=== PATIENT | male | born 1950 | race Caucasian/White ===

== ENCOUNTER → 2017-09-27 10:10 | Outpatient (CLI) | payer MEDICARE, SELFPAY ==
[2017-09-27 12:10] LABS: Absolute Lymphocyte Count 1.41 X10^3/ul (0.83-4.51); Absolute Neutrophil Count 5.5 X10^3/uL (2.0-7.7); Basophil# 0.04 X10^3/uL; Basophil% 0.5 % (0-1); Eosinophil# 0.13 X10^3/uL; Eosinophils% 1.7 % (0-5); Hemoglobin 13.9 g/dl (13.0-16.5); Lymphocyte # 1.41 X10^3/ul (4.0); Lymphocyte % 18.2 % (19-41); Mean Corp Hgb Conc 32.3 g/gl (32-36); Mean Corpuscular Hgb 28.4 pg (27.0-32.0); Mean Corpuscular Volume 87.9 fL (80-94); Mean Platelet Vol. 11.3 fl (6.2-12.0); Monocyte# 0.68 X10^3/uL; Monocyte% 8.8 % (0-10); Neutrophil # 5.45 X10^3/uL (2.7-7.7); Neutrophil % 70.5 % (47-70); Platelet Count 136 K/mm3 (150-450); RBC Distribution Width CV 14.9 % (11.6-14.6); RBC Distribution Width SD 47.6 fl (35.1-43.9); Red Blood Count 4.89 M/mm3 (4.6-6.2); White Blood Count 7.7 K/mm3 (4.4-11.0)
[2017-09-27 12:25] LABS: POSITIVE COUNT NO; POSITIVE DIFFERENTIAL NO; POSITIVE MORPHOLOGY NO
[2017-09-27 12:26] LABS: Erythrocyte Sedimentation Rate 11 mm/hr (0-20)
[2017-09-27 12:28] LABS: Anion Gap 5 (5-15); BUN 21 mg/dL (7-18); BUN/Creat Ratio 17.6 RATIO (10-20); Calcium,Total 8.9 mg/dL (8.5-10.1); Chloride 104 mmol/L (98-107); Cholesterol 230 mg/dL (200); Creatinine, Serum 1.19 mg/dL (0.70-1.30); EST Glomerular Filtration Rate 64 mL/min (>60); Est Glom Filt Rate - Afr Amer 78 mL/min (>60); Glucose 94 mg/dL (74-106); High Density Lipoprotein 82 mg/dL; Sodium Level 138 mmol/L (136-145); Triglycerides 68 mg/dL; Very Low Density Lipoprotein 14 mg/dL (5-40)
== END ==
PROVIDERS: Family Provider Family Medicine; PCP Family Medicine; Visit Provider Family Medicine
DX: I25.10 Atherosclerotic heart disease of native coronary artery without angina pectoris (principal); I10 Essential (primary) hypertension; M35.3 Polymyalgia rheumatica
CPT/HCPCS: 36415; 80048; 80061; 85025; 85652

== ENCOUNTER → 2018-03-21 10:58 | Outpatient (CLI) | payer MEDICARE, SELFPAY ==
[2018-03-21 12:04] LABS: Erythrocyte Sedimentation Rate 27 mm/hr (0-20)
[2018-03-21 12:15] LABS: Absolute Lymphocyte Count 1.06 X10^3/ul (0.83-4.51); Absolute Neutrophil Count 3.4 X10^3/uL (2.0-7.7); Basophil# 0.04 X10^3/uL; Basophil% 0.8 % (0-1); Eosinophil# 0.16 X10^3/uL; Eosinophils% 3.2 % (0-5); Hematocrit 40.9 % (40-54); Hemoglobin 13.9 g/dl (13.0-16.5); Lymphocyte # 1.06 X10^3/ul (4.0); Lymphocyte % 20.9 % (19-41); Mean Corpuscular Hgb 29.5 pg (27.0-32.0); Mean Corpuscular Volume 86.8 fL (80-94); Mean Platelet Vol. 11.9 fl (6.2-12.0); Monocyte# 0.43 X10^3/uL; Monocyte% 8.5 % (0-10); Neutrophil # 3.37 X10^3/uL (2.7-7.7); Neutrophil % 66.4 % (47-70); Platelet Count 149 K/mm3 (150-450); RBC Distribution Width CV 14.3 % (11.6-14.6); RBC Distribution Width SD 45.4 fl (35.1-43.9); Red Blood Count 4.71 M/mm3 (4.6-6.2); White Blood Count 5.1 K/mm3 (4.4-11.0)
[2018-03-21 12:23] LABS: Anion Gap 9 (5-15); BUN 23 mg/dL (7-18); BUN/Creat Ratio 19.2 RATIO (10-20); Calcium,Total 8.9 mg/dL (8.5-10.1); Chloride 109 mmol/L (98-107); Cholesterol 205 mg/dL (200); EST Glomerular Filtration Rate 64 mL/min (>60); Est Glom Filt Rate - Afr Amer 77 mL/min (>60); Glucose 98 mg/dL (74-106); High Density Lipoprotein 52 mg/dL; POSITIVE DIFFERENTIAL NO; PSA,Total - Annual Screen 0.53 ng/mL (0.00-4.00); Potassium 4.5 mmol/L (3.5-5.1); Sodium Level 140 mmol/L (136-145); Triglycerides 56 mg/dL; Very Low Density Lipoprotein 11 mg/dL (5-40)
[2018-03-21 12:24] LABS: POSITIVE COUNT NO; POSITIVE MORPHOLOGY NO
== END ==
PROVIDERS: Family Provider Family Medicine; PCP Family Medicine; Visit Provider Family Medicine
DX: I25.10 Atherosclerotic heart disease of native coronary artery without angina pectoris (principal); I11.0 Hypertensive heart disease with heart failure; I50.9 Heart failure, unspecified; M35.3 Polymyalgia rheumatica; Z12.5 Encounter for screening for malignant neoplasm of prostate
CPT/HCPCS: 36415; 80048; 80061; 84153; 85025; 85652; G0103

== ENCOUNTER → 2018-05-11 16:07 | Outpatient (CLI) | payer MEDICARE, SELFPAY ==
--- NOTE | 2018-05-11 16:08 | ECHOD_ITS ---
Reason For Study: HTN Procedure This was a 2D Doppler, Color Flow transthoracic echocardiogram. Myocardial strain analysis was performed in this exam to aid in the assessment of cardiac function. Exam performed in department. Left Ventricle Mildly dilated left ventricle. Severe segmental systolic dysfunction (see wall motion). The estimated ejection fraction is 30 %. The global longitudinal strain is severely abnormal. The global longitudinal strain = -9.9 % (normal). Anterior [place] : Akinetic. Mid-Inferior: Akinetic. There is moderate to severe global hypokinesis of the left ventricle. Right Ventricle Normal RV size. Normal systolic function. Atria The left atrium is moderately enlarged. The right atrium is mildly enlarged. Mitral Valve Normal mitral valve. Mild (1+) eccentric mitral valve insufficiency. Tricuspid Valve Normal tricuspid valve. Mild (1+) tricuspid valve insufficiency. Mild pulmonary hypertension. Aortic Valve Trisinus/trileaflet aortic valve. Pulmonic Valve Normal pulmonic valve. Great Vessels Mildly dilated aortic root. The pulmonary artery is normal size. Normal inferior vena cava. Pericardium/Pleural No pericardial effusion. MMode/2D Measurements & Calculations LVIDd: 5.9 cm IVSd: 0.96 cm Ao root diam: 4.0 cm LVIDs: 5.3 cm LVPWd: 0.99 cm LA dimension: 4.9 cm RVDd: 3.9 cm FS: 10.0 % LAV(MOD-bp): 79.2 ml LVAd ap4: 50.4 cm2 SV(MOD-sp4): 69.7 ml LAV(MOD-bp) Indexed: 36.9 ml/m2 EDV(MOD-sp4): 204.5 ml LAV(MOD-sp2): 68.9 ml EDV(sp4-el): 217.0 ml LAV(MOD-sp4): 83.7 ml LVAs ap4: 38.8 cm2 ESV(MOD-sp4): 134.7 ml ESV(sp4-el): 141.8 ml EF(MOD-sp4): 34.1 % EF(sp4-el): 34.6 % SV(sp4-el): 75.2 ml LA A4 area: 25.7 cm2 RA A4 area: 21.7 cm2 Time Measurements MV dec time: 0.27 sec Doppler Measurements & Calculations MV E max bandar: 42.7 cm/sec Lat Peak E' Bandar: 4.1 cm/sec Med Peak E' Bandar: 3.1 cm/sec MV A max bandar: 82.0 cm/sec E/E' lat: 10.3 E/E' med: 13.8 MV E/A: 0.52 Ao V2 max: 135.7 cm/sec LV V1 max: 108.6 cm/sec TR max bandar: 270.8 cm/sec Ao max P.4 mmHg LV V1 max P.7 mmHg TR max P.3 mmHg Interpretation Summary Mildly dilated left ventricle. Severe segmental systolic dysfunction (see wall motion). The estimated ejection fraction is 30 %. The left atrium is moderately enlarged. Mild (1+) eccentric mitral valve insufficiency. The global longitudinal strain = -9.9 % (normal). Mild pulmonary hypertension. No thrombus noted Ordering Physician: Mario Sutton Referring Physician: JEAN CLAUDE HERRERA Performed By: Martha Degroot, KALEY, RVT
== END ==
PROVIDERS: Family Provider Family Medicine; PCP Family Medicine; Referring Provider Internal Medicine Cardiovascular Disease; Visit Provider Internal Medicine Cardiovascular Disease
DX: I48.0 Paroxysmal atrial fibrillation (principal)
CPT/HCPCS: 93306

== ENCOUNTER 2018-09-17 16:50 | Inpatient (IN) | payer MEDICARE, SELFPAY ==
[2018-09-17 16:51] VITALS: BP 138/92; PULSE 68; RESP 14; TEMP 36.6; O2SAT 100; BMI 31.0
--- NOTE | 2018-09-17 17:04 | CT_ITS ---
STUDY: CT ABDOMEN AND PELVIS WITHOUT CONTRAST REASON FOR EXAM: Male, 68 years old. Left flank pain. RADIATION DOSAGE (If Supplied By Facility): CTDIvol = ( 17.39 ) mGy, DLP = ( 1147.16 ) mGycm TECHNIQUE: Transaxial images were obtained from the dome of the diaphragm to the symphysis pubis without oral contrast, and without intravenous contrast. Sagittal and coronal images were reconstructed. Individualized dose optimization techniques were used for this CT. COMPARISON: None. FINDINGS: Evaluation of the abdominal viscera is limited in the absence of intravenous contrast. There is atelectasis at the lung bases. The visualized portions of the heart and pericardium are within normal limits. There are no calcified gallstones present. There are simple cysts noted in the liver. The spleen is normal in size. There is fluid and stranding surrounding the head and body of the pancreas. This is consistent with acute pancreatitis. There are no pancreatic parenchymal calcifications noted, consistent with chronic pancreatitis. There is no evidence of pancreatic hemorrhage, necrosis or pseudocyst formation. The adrenal glands are within normal limits. There are no renal or ureteral stones. There is no hydronephrosis. Normal visualized stomach. There is no bowel obstruction or inflammation. The appendix is visualized and appears normal. The aorta is normal in caliber. There is a small amount of free fluid adjacent to the pancreas. There is no free air, fluid collection or lymphadenopathy. There are no destructive osseous lesions. CT/Abdomen/Pelvis W IV Cont ONLY IMPRESSION: Acute on chronic pancreatitis. Small amount of free fluid. No evidence of pancreatic hemorrhage, necrosis or pseudocyst formation. Electronically Signed: Sylvester Burns, at 19:49 EST Tel , Service support ,
[2018-09-17] MEDS: 0.9% Normal Saline 1,000 ML 1000 ML IV (17:22)
[2018-09-17 18:01] LABS: Absolute Lymphocyte Count 1.14 X10^3/ul (0.83-4.51); Absolute Neutrophil Count 4.8 X10^3/uL (2.0-7.7); Basophil# 0.04 X10^3/uL; Basophil% 0.6 % (0-1); Eosinophil# 0.23 X10^3/uL; Eosinophils% 3.3 % (0-5); Hematocrit 42.4 % (40-54); Hemoglobin 13.9 g/dl (13.0-16.5); Lymphocyte # 1.14 X10^3/ul (4.0); Lymphocyte % 16.5 % (19-41); Mean Corp Hgb Conc 32.8 g/gl (32-36); Mean Corpuscular Volume 88.3 fL (80-94); Mean Platelet Vol. 11.6 fl (6.2-12.0); Monocyte# 0.68 X10^3/uL; Monocyte% 9.9 % (0-10); Neutrophil % 69.6 % (47-70); POSITIVE COUNT NO; POSITIVE DIFFERENTIAL NO; POSITIVE MORPHOLOGY NO; Platelet Count 174 K/mm3 (150-450); RBC Distribution Width CV 13.9 % (11.6-14.6); RBC Distribution Width SD 44.7 fl (35.1-43.9); White Blood Count 6.9 K/mm3 (4.4-11.0)
[2018-09-17 18:02] LABS: ALB/GLOB Ratio 0.8 RATIO (0.9-2.4); AST(SGOT) 15 U/L (15-37); Alanine Aminotransfer ALT/SGPT 15 U/L (16-61); Albumin, Serum 3.3 g/dL (3.2-5.0); Alkaline Phosphatase 62 U/L (45-117); Anion Gap 6 (5-15); BUN 21 mg/dL (7-18); BUN/Creat Ratio 18.9 RATIO (10-20); Calcium,Total 8.6 mg/dL (8.5-10.1); Chloride 107 mmol/L (98-107); Creatinine, Serum 1.11 mg/dL (0.70-1.30); EST Glomerular Filtration Rate 70 mL/min (>60); Est Glom Filt Rate - Afr Amer 84 mL/min (>60); Estimated Creatinine Clearance 65.95 ml/min; Globulin 3.9 g/dL (2.2-4.2); Glucose 110 mg/dL (74-106); Lipase 17681 U/L (73-393); Potassium 4.5 mmol/L (3.5-5.1); Protein, Total 7.2 g/dL (6.4-8.2); Sodium Level 140 mmol/L (136-145)
[2018-09-17] MEDS: Ondansetron 4 MG/2 ML Vial IV (18:02)
[2018-09-17] MEDS: Morphine 4 MG/ML Syringe IV ×2 (18:02→22:33)
[2018-09-17 18:44] LABS: Bacteria 0 SEEN /hpf (None Seen); Mucous, Urine 0 SEEN /hpf (<or=2+); Red Blood Cells-Urine 0 SEEN /hpf (0-5); White Blood Cells 0 SEEN /hpf (0-5)
[2018-09-17 19:03] LABS: Color, Urine Yellow (Yellow); Glucose, Dipstick Normal (Normal); Ketone-Dipstick Negative (Negative); Leukocyte Esterase-Dipstick Negative /ul (Negative); Nitrite-Dipstick Negative (Negative); Occult Blood-Urine Negative /ul (Negative); Protein-Dipstick Negative (Negative); Urine Bilirubin Dipstick Negative (Negative); Urine Clarity Clear (Clear); Urine Urobilinogen Normal (Normal); Urine pH 6.5 (5.0 - 8.0)
[2018-09-17 19:12] LABS: Squamous Epithelial Cells - UA 0-5 SEEN /hpf (0-5)
[2018-09-17 19:18] VITALS: BP 127/94; PULSE 76; RESP 18; O2SAT 95
--- NOTE | 2018-09-17 20:29 | HP.PCM_ITS ---
Problem List (1) Acute on chronic pancreatitis Status: Chronic (2) Paroxysmal atrial fibrillation Status: Chronic (3) Non-ischemic cardiomyopathy Status: Chronic (4) Cardiomyopathy, dilated Status: Chronic History of Present Illness Date of Admission: 09/17/18 Chief Complaint: abdominal pain The patient is a 68 year old M with a significant history of nonischemic cardiomyopathy (systolic dysfunction and diastolic dysfunction with EF 25%; and stage III diastolic on Echo done on 08/04/2015); TIAx2; hypertension and paroxysmal A. fib who presented to the emergency department because of 1 day history of progressively worsening excruciating generalized abdominal pain that radiated to his bilateral flanks and into his back. His abdominal pain increased with taking a deep breath. Patient received morphine at emergency department that helped with his abdominal pain. He denies any alleviating factor while at home. Patient reported that his symptoms started few hours after eating a sandwich. Associated his symptoms is nausea without vomiting. Patient reports cold-like symptoms of productive cough with white sputum; and nasal congestion. Also, he had a sore throat which has since disappeared. His cold-like symptoms has been going on for 4-5 days. And he has been taking Mucinex. Patient denies any history of alcoholism. At the Emergency department his lipase was 17,681. CT of his abdomen and pelvis was remarkable for radiographic evidence of acute on chronic pancreatitis. 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) Hypertension (Chronic) Medical History: Medical History (Last Reviewed 09/17/18 @ 21:39 by Phuc Serra MD) Cardiomyopathy, dilated (Chronic) I42.0 Chronic systolic (congestive) heart failure (Chronic) I50.22 Nonischemic cardiomyopathy, suspected viral Diagnosed in 2013 Hyperlipidemia (Chronic) E78.5 Hypertension (Chronic) I10 Encounter for long-term current use of high risk medication Z79.899 Allergies amlodipine Adverse Reaction (Severe, Verified 09/17/18 16:55) Swollen fingers atorvastatin [From Lipitor] Adverse Reaction (Severe, Verified 09/17/18 16:55) Myalgias Home Medications: Ambulatory Orders Medication Instructions Recorded spironolactone 25 mg tablet 50 mg PO DAILY tab 10/06/17 carvedilol 12.5 mg tablet 12.5 mg PO BID #180 tab 11/07/17 lisinopril 20 mg tablet 20 mg PO BID #180 tab 02/14/18 Surgical History: Surgical History (Last Reviewed 09/17/18 @ 21:16 by Phuc Serra MD) H/O knee surgery Z98.890 Surgical History: tonsillectomy, - - He has had surgery on both knees. Meniscus tear of right knee and tear of ligaments in the left knee. Tonsillectomy Psychiatric History: No pertinent psych hx Smoking Status: Never smoker - *Family History Maternal Family History: Family History (Last Reviewed 09/17/18 @ 21:16 by Phuc Serra MD) Father CAD (coronary artery disease) Mother CVA (cerebral vascular accident) Other Family history of CVA History Items: Heart Disease - age 76 Paternal Family History: Family History (Last Reviewed 09/17/18 @ 21:16 by Phuc Serra MD) Father CAD (coronary artery disease) Mother CVA (cerebral vascular accident) Other Family history of CVA History Items: Diabetes, Heart Disease - age 84 Review of Systems Constitutional: Denies: Chills, Fever, Weight Change HEENT: Reports: Sinus Congestion. Denies: Head Aches Cardiovascular: Denies: Chest Pain, Palpitations Respiratory: Reports: Cough, Shortness of Breath, Sputum production. Denies: Shortness of breath at rest Gastrointestinal: Reports: Abdominal Pain. Denies: Nausea, Vomiting Genitourinary: Denies: Dysuria Musculoskeletal: Reports: Back Pain. Denies: Joint Pain, Joint Tenderness Skin: Denies: Rash, Wounds Neurological: Denies: Numbness, Tingling, Focal weakness Psychiatric: Denies: Anxiety, Depression, Homicidal Ideations, Suicidal Ideations Hematologic/ Lymphatic: Denies: Easy Bruising, Easy Bleeding VTE Information - Inpt Only VTE Present on Admission: No VTE Mechan Device Prophylaxis: None VTE Pharm Prophylaxis ordered?: Yes - Physical Exam General: Alert, Oriented x3, Cooperative HEENT: Atraumatic, PERRLA, EOMI, Normocephalic Neck: Supple, No JVD, Negative Carotid Bruits Lungs: Clear to auscultation, Normal air movement Cardiovascular: Regular rate, No murmurs Abdomen: Bowel Sounds Present, Soft, Tender Extremities: No edema, Capillary Refill Less than 3 Seconds Skin: No rashes, No breakdown Musculoskeletal: No Tenderness to Palpation of Joints or Extremities Neurological: Neuro grossly intact Psych/Mental Status: Normal Affect, Appropriate Vital Signs Temp Pulse Resp BP Pulse Ox 97.9 F 76 18 127/94 H 95 09/17/18 16:51 09/17/18 19:18 09/17/18 19:18 09/17/18 19:18 09/17/18 19:18 Oxygen Delivery Method Room Air Weight: 101 kg Body Mass Index (BMI) 31.0 Finger Stick Blood Glucose 83 Laboratory Tests Past 24 Hrs 09/17/18 09/17/18 09/17/18 17:21 17:21 18:35 WBC 6.9 RBC 4.80 Hgb 13.9 Hct 42.4 MCV 88.3 MCH 29.0 MCHC 32.8 RDW 13.9 RDW Differential 44.7 H Plt Count 174 MPV 11.6 Immature Gran % (Auto) 0.100 Neut % (Auto) 69.6 Lymph % (Auto) 16.5 L [place] % (Auto) 9.9 Eos % (Auto) 3.3 Baso % (Auto) 0.6 Absolute Neuts (auto) 4.8 Absolute Lymphs (auto) 1.14 Total Counted Not Reportable Sodium 140 Potassium 4.5 Chloride 107 Carbon Dioxide 27.0 Anion Gap 6 BUN 21 H Creatinine 1.11 Estim Creat Clear Calc 65.95 Est GFR (MDRD) Af Amer 84 Est GFR (MDRD) Non-Af 70 BUN/Creatinine Ratio 18.9 Glucose 110 H Calcium 8.6 Total Bilirubin 0.40 AST 15 ALT 15 L Alkaline Phosphatase 62 Total Protein 7.2 Albumin 3.3 Globulin 3.9 Albumin/Globulin Ratio 0.8 L Lipase 49452 H Urine Color Yellow Urine Clarity Clear Urine pH 6.5 Ur Specific [place] 1.010 Urine Protein Negative Urine Glucose (UA) Normal Urine Ketones Negative Urine Occult Blood Negative Urine Nitrite Negative Urine Bilirubin Negative Urine Urobilinogen Normal Ur Leukocyte Esterase Negative Urine RBC 0 SEEN Urine WBC 0 SEEN Ur Squamous Epith Cells 0-5 SEEN Urine Bacteria 0 SEEN Urine Mucus 0 SEEN Assessment/Plan All Active Problems (Last Reviewed 09/17/18 @ 21:29 by Phuc Serra MD) Family history of CVA (Acute) Hemorrhagic stroke (Resolved) Syncope (Resolved) History of intracranial hemorrhage (Resolved) The patient is a 68 year old M with a significant history of nonischemic cardiomyopathy (systolic dysfunction and diastolic dysfunction with EF 25%; and stage III diastolic on Echo done on 08/04/2015); TIAx2;hypertension and paroxysmal A. fib who presented to the emergency department because of 1 day history of excruciating generalized abdominal pain that radiated to his bilateral flanks and into his back; and with nausea without vomiting; and was found to have severely elevated lipase and radiographic findings of acute on chronic pancreatitis. Acute on chronic pancreatitis Patient with abdominal pain that radiate to his back. Lipase of 17,681 CT of abdomen and pelvis was independently reviewed and it showed pancreatic alejandra cifications and inflammation consistent with acute on chronic pancreatitis. At emergency department patient received normal saline 1 L bolus; morphine sulfate and Zofran. We will continue supportive treatment with IV fluids; morphine sulfate and Zofran. Because of history of congestive heart failure will be cautious with fluids. Lactated Ringer's at 100 mL's per hour for 1500 mL ordered. We will keep n.p.o. for now. His liver enzymes are not elevated to suggest gallbladder disease. However, will get an ultrasound of his liver and gallbladder. We will check alcohol level. We will check lipid levels. His calcium level is normal. And patient is not on any class medications that can cause pancreatitis. Consider further testing for autoimmune pancreatitis if indicated. Trend CBC and BMP. Cold-like symptoms Tessalon Perles and Flonase ordered. Chronic systolic and diastolic dysfunction Review of old records show that his echocardiogram on 08/04/2015 showed an EF of 25%; stage III that B dysfunction. Akinetic apex. Mildly dilated right ventricle; mild global right ventricular systolic dysfunction and others. Coreg, Lisinopril and Aldactone continued. Caution with fluid as above. Paroxysmal A. fib Not in A. fib at the time of admission. Not on chronic anticoagulation. Coreg continued Hypertension On admission his blood pressure was not within goal but it is fairly stable. Coreg, Lisinopril and Aldactone continued. Trend blood pressures and adjust blood pressure medication as necessary. DVT prophylaxis with subcutaneous Lovenox ordered. Code Visit OBSV E&M: 22505 Initial observation care L3
--- NOTE | 2018-09-17 20:36 | ED.VISSUMM ---
- ER Visit Summary Date of Service: 09/17/18 Chief Complaint: Pain History of Present Illness: The patient is a 68 M with abdominal pain that started yesterday evening. It is diffuse but primarily involves his left flank. It is severe. Associate with nausea. He never had this before. Physical Examination: Afebrile and vital signs unremarkable. Patient is alert and oriented. No acute distress. Skin appears normal without jaundice or pallor. Heart regular. Lungs clear. Abdomen tender in the left abdomen and left flank regions. No guarding or rebound. Test Results: CBC normal. Glucose 110 and BUN 21. Lipase 17,000. Urinalysis normal. CT showed findings consistent with pancreatitis without complications. Emergency Department Course and Treatment: Patient treated with fluids, morphine, Zofran. He is not a regular alcohol user. No change in his medications. No history of hepatobiliary disease. I am not sure what is causing his pancreatitis. I spoke with the hospitalist for further care. Treatment Plan: As above Disposition: Admission Impression: 1. Pancreatitis This note was generated with [employer] dictation software. It may contain incorrect words, spelling, and punctuation that were not noted in review of the chart prior to signing ED Disposition - Plan for ED Patient: Referrals: Tomás Garces MD [Primary Care Provider] -
[2018-09-17 21:05] VITALS: O2SAT 95
--- NOTE | 2018-09-17 21:42 | US_ITS ---
STUDY: ABDOMINAL ULTRASOUND - RIGHT UPPER QUADRANT REASON FOR VISIT: Male, 68 years old. Pancreatitis. TECHNIQUE: Ultrasound evaluation of the right upper quadrant was performed with real-time and static stiles-scale imaging. TECHNICAL QUALITY: Adequate. COMPARISON: None. FINDINGS: Liver: The liver measures 15.3 cm. There is a heterogeneous echogenicity of the liver. The bile ducts are within normal limits. There is hepatic color flow. The direction of portal flow is hepatopetal. There is a 2.3 cm x 2.7 cm x 3.2 cm cyst in the left lobe of the liver. 2 cysts are seen in the right lobe of the liver. The larger measures 2.5 cm x 2.2 sinus by 2.1 cm. Gallbladder: Normal distended gallbladder. The gallbladder wall is thickened and measures 5 mm. There is a negative sonographic Nevarez's sign. There is no pericholecystic fluid. There are multiple echogenic structures within the gallbladder, consistent with multiple gallstones. Common Bile Duct (C.B.D.): The common bile duct measures 7 mm. Pancreas: Normal size of the head, body and tail of the pancreas. There is increased echogenicity of the pancreas. There is no demonstrated pancreatic mass or cyst. Right Kidney: Normal size of the right kidney. The right kidney measures 12.9 cm x 6.2 cm x 4.5 cm. Normal renal cortex. The right cortex measures 1.6 cm. There is no demonstrated renal mass or cyst. There is no right hydronephrosis. US/Abdomen Limited IMPRESSION: Multiple gallstones. Thickened gallbladder wall. Hepatic cysts. Electronically Signed: Jose Francisco Whitfield MD at 10:48 EST , Service support ,
[2018-09-17 21:43] VITALS: BMI 30.4
[2018-09-17 22:12] VITALS: BP 142/87; PULSE 69; RESP 15; TEMP 36.5; O2SAT 95
[2018-09-17 22:17] LABS: Alcohol, Blood (Medical)-Serum < 3.0 mg/dL
[2018-09-17] MEDS: Lisinopril 20 MG Tablet PO (22:32)
[2018-09-17] MEDS: Carvedilol 12.5 MG Tablet PO (22:32)
[2018-09-17] MEDS: Lactated Ringers 1,000 ML 100 ML IV (22:32)
[2018-09-18] MEDS: Morphine 2 MG/ML Syringe IV ×4 (04:19→18:02)
[2018-09-18 04:20] VITALS: BP 110/70; PULSE 64; RESP 16; TEMP 37; O2SAT 96
[2018-09-18 06:03] LABS: Absolute Lymphocyte Count 1.16 X10^3/ul (0.83-4.51); Absolute Neutrophil Count 5.6 X10^3/uL (2.0-7.7); Basophil# 0.03 X10^3/uL; Basophil% 0.4 % (0-1); Eosinophil# 0.24 X10^3/uL; Eosinophils% 3.1 % (0-5); Hematocrit 41.6 % (40-54); Hemoglobin 13.5 g/dl (13.0-16.5); Lymphocyte # 1.16 X10^3/ul (4.0); Lymphocyte % 15.1 % (19-41); Mean Corp Hgb Conc 32.5 g/gl (32-36); Mean Corpuscular Hgb 28.6 pg (27.0-32.0); Mean Corpuscular Volume 88.1 fL (80-94); Mean Platelet Vol. 11.2 fl (6.2-12.0); Monocyte# 0.67 X10^3/uL; Monocyte% 8.7 % (0-10); Neutrophil # 5.56 X10^3/uL (2.7-7.7); Neutrophil % 72.6 % (47-70); Platelet Count 167 K/mm3 (150-450); RBC Distribution Width CV 14.1 % (11.6-14.6); RBC Distribution Width SD 45.4 fl (35.1-43.9); Red Blood Count 4.72 M/mm3 (4.6-6.2); White Blood Count 7.7 K/mm3 (4.4-11.0)
[2018-09-18 06:25] LABS: Anion Gap 9 (5-15); BUN 20 mg/dL (7-18); BUN/Creat Ratio 17.9 RATIO (10-20); Calcium,Total 8.5 mg/dL (8.5-10.1); Chloride 109 mmol/L (98-107); Cholesterol 145 mg/dL (200); Creatinine, Serum 1.12 mg/dL (0.70-1.30); EST Glomerular Filtration Rate 69 mL/min (>60); Est Glom Filt Rate - Afr Amer 83 mL/min (>60); Estimated Creatinine Clearance 65.36 ml/min; Glucose 104 mg/dL (74-106); High Density Lipoprotein 45 mg/dL; Potassium 4.6 mmol/L (3.5-5.1); Sodium Level 141 mmol/L (136-145); Triglycerides 51 mg/dL; Very Low Density Lipoprotein 10 mg/dL (5-40)
[2018-09-18 06:26] LABS: POSITIVE COUNT NO; POSITIVE DIFFERENTIAL NO; POSITIVE MORPHOLOGY NO
[2018-09-18 07:33] VITALS: O2SAT 95
[2018-09-18] MEDS: Lactated Ringers 1,000 ML 100 ML IV (08:39)
[2018-09-18 08:40] VITALS: BP 136/82; PULSE 65; RESP 16; TEMP 36.8; O2SAT 95
[2018-09-18 08:56] LABS: Lipase 6122 U/L (73-393)
--- NOTE | 2018-09-18 09:45 | NURSING ---
pt transported off the unit via bed for ultrasound by CATHI Valdez at this time
--- NOTE | 2018-09-18 10:44 | PCM.PN.HOSP ---
Patient Problems: Active and Suspected Problems (Last Reviewed 09/18/18 @ 14:07 by Renuka Ng PA-C) Cholelithiasis (Acute) Subjective: Patient seen and examined. He was admitted with a complaint of abdominal pain and was found to have acute pancreatitis. He is currently n.p.o. Pain has improved, though it is still present. He denies any fever, any chills, any nausea or vomiting, or diarrhea. Review of systems otherwise negative. Labs and vitals reviewed. Vitals/I&O's: Vital Signs Temp Pulse Resp BP Pulse Ox 98.6 F 64 16 110/70 95 09/18/18 04:20 09/18/18 04:20 09/18/18 04:20 09/18/18 04:20 09/18/18 07:33 Oxygen Delivery Method Room Air Weight: 217 lb 13.067 oz Body Mass Index (BMI) 30.4 Finger Stick Blood Glucose 83 Intake and Output for Last 24 Hours 09/16/18 09/17/18 09/18/18 23:59 23:59 23:59 Intake Total 1814 / 1814 Output Total 400 / 400 Balance 1414 / 1414 General: Alert, Oriented x3, Cooperative, No apparent distress HEENT: Atraumatic, PERRLA, EOMI, Normocephalic Oral: Moist Mucosa Neck: Supple, No JVD, Negative Carotid Bruits Lungs: Clear to auscultation, Normal air movement, No rhonchi, No wheeze, No rales Cardiovascular: Regular rate, Regular Rhythm, Normal S1, Normal S2, No murmurs Abdomen: Bowel Sounds Present, Soft, - - moderate tenderness in right lower quadrant area. No guarding or rebound tenderness Extremities: No edema, Capillary Refill Less than 3 Seconds Skin: No rashes, No breakdown Musculoskeletal: No Tenderness to Palpation of Joints or Extremities Lymphatic: No Cervical, Supraclavicular, or Inguinal Adenopathy Neurological: Cranial nerves II-XII grossly intact Psych/Mental Status: Normal Affect, Appropriate, Alert and oriented to time, place, person, mood and affect Laboratory Results 09/17/18 17:21: WBC 6.9, RBC 4.80, Hgb 13.9, Hct 42.4, MCV 88.3, MCH 29.0, MCHC 32.8, RDW 13.9, RDW Differential 44.7 H, Plt Count 174, MPV 11.6, Immature Gran % (Auto) 0.100, Neut % (Auto) 69.6, Lymph % (Auto) 16.5 L, [place] % (Auto) 9.9, Eos % (Auto) 3.3, Baso % (Auto) 0.6, Absolute Neuts (auto) 4.8, Absolute Lymphs (auto) 1.14, Total Counted Not Reportable 09/17/18 17:21: Sodium 140, Potassium 4.5, Chloride 107, Carbon Dioxide 27.0, Anion Gap 6, BUN 21 H, Creatinine 1.11, Estim Creat Clear Calc 65.95, Est GFR (MDRD) Af Amer 84, Est GFR (MDRD) Non-Af 70, BUN/Creatinine Ratio 18.9, Glucose 110 H, Calcium 8.6, Total Bilirubin 0.40, AST 15, ALT 15 L, Alkaline Phosphatase 62, Total Protein 7.2, Albumin 3.3, Globulin 3.9, Albumin/Globulin Ratio 0.8 L, Lipase 29187 H 09/17/18 17:21: Ethyl Alcohol < 3.0 09/17/18 18:35: Urine Color Yellow, Urine Clarity Clear, Urine pH 6.5, Ur Specific [place] 1.010, Urine Protein Negative, Urine Glucose (UA) Normal, Urine Ketones Negative, Urine Occult Blood Negative, Urine Nitrite Negative, Urine Bilirubin Negative, Urine Urobilinogen Normal, Ur Leukocyte Esterase Negative, Urine RBC 0 SEEN, Urine WBC 0 SEEN, Ur Squamous Epith Cells 0-5 SEEN, Urine Bacteria 0 SEEN, Urine Mucus 0 SEEN 09/18/18 05:40: Sodium 141, Potassium 4.6, Chloride 109 H, Carbon Dioxide 23.0, Anion Gap 9, BUN 20 H, Creatinine 1.12, Estim Creat Clear Calc 65.36, Est GFR (MDRD) Af Amer 83, Est GFR (MDRD) Non-Af 69, BUN/Creatinine Ratio 17.9, Glucose 104, Calcium 8.5, Triglycerides 51, Cholesterol 145, LDL Cholesterol 90, VLDL Cholesterol 10, HDL Cholesterol 45 09/18/18 05:40: WBC 7.7, RBC 4.72, Hgb 13.5, Hct 41.6, MCV 88.1, MCH 28.6, MCHC 32.5, RDW 14.1, RDW Differential 45.4 H, Plt Count 167, MPV 11.2, Immature Gran % (Auto) 0.100, Neut % (Auto) 72.6 H, Lymph % (Auto) 15.1 L, [place] % (Auto) 8.7, Eos % (Auto) 3.1, Baso % (Auto) 0.4, Absolute Neuts (auto) 5.6, Absolute Lymphs (auto) 1.16, Total Counted Not Reportable 09/18/18 05:40: Lipase 6122 H Diagnostic Data Abdomen/Pelvis CT 09/17/18 17:04 IMPRESSION: Acute on chronic pancreatitis. Small amount of free fluid. No evidence of pancreatic hemorrhage, necrosis or pseudocyst formation. Electronically Signed: Sylvester Burns, at 19:49 EST Tel , Service support , Abdomen Ultrasound 09/17/18 21:42 IMPRESSION: Multiple gallstones. Thickened gallbladder wall. Hepatic cysts. Electronically Signed: Jose Francisco Whitfield MD at 10:48 EST , Service support , Current Medications Acetaminophen (Tylenol) 650 mg PO Q6H PRN PRN PRN Reason: Non-cardiac pain (mod-severe) Benzonatate (Tessalon Perle) 100 mg PO TID PRN PRN PRN Reason: coughing Carvedilol (Coreg) 12.5 mg PO BID [facility] Last Admin: 09/17/18 22:32 Dose: 12.5 mg Enoxaparin Sodium (Lovenox) 40 mg SC DAILY@1000 TAMIKA Fluticasone Propionate (Flonase Nasal [place]) 2 spray NASAL DAILY@2200 [facility] Last Admin: 09/18/18 00:32 Dose: Not Given Lactated Ringer's () 1,000 mls @ 100 mls/hr IV .Q10H [facility] Stop: 09/18/18 13:37 Last Admin: 09/18/18 08:39 Dose: 100 mls/hr Lisinopril (Zestril) 20 mg PO BID [facility] Last Admin: 09/17/18 22:32 Dose: 20 mg Magnesium Hydroxide (Milk Of Magnesia) 30 ml PO DAILY PRN PRN PRN Reason: Constipation Morphine Sulfate () 2 - 4 mg IV Q3H PRN PRN PRN Reason: SEVERE PAIN (6-10/10) Last Admin: 09/17/18 22:33 Dose: 4 mg Morphine Sulfate () 2 - 4 mg IV Q3H PRN PRN PRN Reason: SEVERE PAIN (6-10/10) Last Admin: 09/18/18 08:47 Dose: 2 mg Ondansetron HCl (Zofran) 4 mg IV Q8H PRN PRN PRN Reason: NAUSEA Sodium Chloride () 5 - 15 ml IV UD PRN PRN Reason: SALINE FLUSH Spironolactone (Aldactone) 50 mg PO DAILY TAMIKA Medical Necessity - Tobacco Use Smoking Status: Never smoker Assessment/Plan All Active Problems (Last Reviewed 09/18/18 @ 14:07 by Renuka Ng PA-C) Cholelithiasis (Acute) Family history of CVA (Acute) Hemorrhagic stroke (Resolved) Syncope (Resolved) History of intracranial hemorrhage (Resolved) 1. Acute on chronic gallstone pancreatitis Admitted up with abdominal pain which radiated to his back. Initial lipase was 17,681. CT of the abdomen done showed creatinine calcifications and inflammation consistent with acute on chronic pink otitis. Was started on IV fluids and n.p.o. at time of review. Call of was not elevated and triglycerides were also not elevated. Triglycerides down to 6122 this morning. Gallbladder ultrasound done this morning showed multiple gallstones. Consult general surgery for cholecystectomy. maintain NPO and continue gentle hydration with IVF 2. 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 on coreg, lisinopril and aldactone 3. paroxysmal Afib: on coreg. Not on oral anticoagulation, reason not clear. 4. Hypertension: Controlled. On Coreg, lisinopril and Aldactone. DVT prophylaxis: Lovenox Code Visit Inpatient E&M: 62532 Subs Hosp L3
--- NOTE | 2018-09-18 10:52 | PN_ITS ---
Patient Problems: Active and Suspected Problems (Last Reviewed 09/18/18 @ 14:07 by Renuka Ng PA-C) Cholelithiasis (Acute) Subjective: Patient seen and examined. He was admitted with a complaint of abdominal pain and was found to have acute pancreatitis. He is currently n.p.o. Pain has improved, though it is still present. He denies any fever, any chills, any nausea or vomiting, or diarrhea. Review of systems otherwise negative. Labs and vitals reviewed. Vitals/I&O's: Vital Signs Temp Pulse Resp BP Pulse Ox 98.6 F 64 16 110/70 95 09/18/18 04:20 09/18/18 04:20 09/18/18 04:20 09/18/18 04:20 09/18/18 07:33 Oxygen Delivery Method Room Air Weight: 217 lb 13.067 oz Body Mass Index (BMI) 30.4 Finger Stick Blood Glucose 83 Intake and Output for Last 24 Hours 09/16/18 09/17/18 09/18/18 23:59 23:59 23:59 Intake Total 1814 / 1814 Output Total 400 / 400 Balance 1414 / 1414 General: Alert, Oriented x3, Cooperative, No apparent distress HEENT: Atraumatic, PERRLA, EOMI, Normocephalic Oral: Moist Mucosa Neck: Supple, No JVD, Negative Carotid Bruits Lungs: Clear to auscultation, Normal air movement, No rhonchi, No wheeze, No rales Cardiovascular: Regular rate, Regular Rhythm, Normal S1, Normal S2, No murmurs Abdomen: Bowel Sounds Present, Soft, - - moderate tenderness in right lower quadrant area. No guarding or rebound tenderness Extremities: No edema, Capillary Refill Less than 3 Seconds Skin: No rashes, No breakdown Musculoskeletal: No Tenderness to Palpation of Joints or Extremities Lymphatic: No Cervical, Supraclavicular, or Inguinal Adenopathy Neurological: Cranial nerves II-XII grossly intact Psych/Mental Status: Normal Affect, Appropriate, Alert and oriented to time, place, person, mood and affect Laboratory Results 09/17/18 17:21: WBC 6.9, RBC 4.80, Hgb 13.9, Hct 42.4, MCV 88.3, MCH 29.0, MCHC 32.8, RDW 13.9, RDW Differential 44.7 H, Plt Count 174, MPV 11.6, Immature Gran % (Auto) 0.100, Neut % (Auto) 69.6, Lymph % (Auto) 16.5 L, [place] % (Auto) 9.9, Eos % (Auto) 3.3, Baso % (Auto) 0.6, Absolute Neuts (auto) 4.8, Absolute Lymphs (auto) 1.14, Total Counted Not Reportable 09/17/18 17:21: Sodium 140, Potassium 4.5, Chloride 107, Carbon Dioxide 27.0, Anion Gap 6, BUN 21 H, Creatinine 1.11, Estim Creat Clear Calc 65.95, Est GFR (MDRD) Af Amer 84, Est GFR (MDRD) Non-Af 70, BUN/Creatinine Ratio 18.9, Glucose 110 H, Calcium 8.6, Total Bilirubin 0.40, AST 15, ALT 15 L, Alkaline Phosphatase 62, Total Protein 7.2, Albumin 3.3, Globulin 3.9, Albumin/Globulin Ratio 0.8 L, Lipase 87987 H 09/17/18 17:21: Ethyl Alcohol < 3.0 09/17/18 18:35: Urine Color Yellow, Urine Clarity Clear, Urine pH 6.5, Ur Specific [place] 1.010, Urine Protein Negative, Urine Glucose (UA) Normal, Urine Ketones Negative, Urine Occult Blood Negative, Urine Nitrite Negative, Urine Bilirubin Negative, Urine Urobilinogen Normal, Ur Leukocyte Esterase Negative, Urine RBC 0 SEEN, Urine WBC 0 SEEN, Ur Squamous Epith Cells 0-5 SEEN, Urine Bacteria 0 SEEN, Urine Mucus 0 SEEN 09/18/18 05:40: Sodium 141, Potassium 4.6, Chloride 109 H, Carbon Dioxide 23.0, Anion Gap 9, BUN 20 H, Creatinine 1.12, Estim Creat Clear Calc 65.36, Est GFR (MDRD) Af Amer 83, Est GFR (MDRD) Non-Af 69, BUN/Creatinine Ratio 17.9, Glucose 104, Calcium 8.5, Triglycerides 51, Cholesterol 145, LDL Cholesterol 90, VLDL Cholesterol 10, HDL Cholesterol 45 09/18/18 05:40: WBC 7.7, RBC 4.72, Hgb 13.5, Hct 41.6, MCV 88.1, MCH 28.6, MCHC 32.5, RDW 14.1, RDW Differential 45.4 H, Plt Count 167, MPV 11.2, Immature Gran % (Auto) 0.100, Neut % (Auto) 72.6 H, Lymph % (Auto) 15.1 L, [place] % (Auto) 8.7, Eos % (Auto) 3.1, Baso % (Auto) 0.4, Absolute Neuts (auto) 5.6, Absolute Lymphs (auto) 1.16, Total Counted Not Reportable 09/18/18 05:40: Lipase 6122 H Diagnostic Data Abdomen/Pelvis CT 09/17/18 17:04 IMPRESSION: Acute on chronic pancreatitis. Small amount of free fluid. No evidence of pancreatic hemorrhage, necrosis or pseudocyst formation. Electronically Signed: Sylvester Burns, at 19:49 EST Tel , Service support , Abdomen Ultrasound 09/17/18 21:42 IMPRESSION: Multiple gallstones. Thickened gallbladder wall. Hepatic cysts. Electronically Signed: Jose Francisco Whitfield MD at 10:48 EST , Service support , Current Medications Acetaminophen (Tylenol) 650 mg PO Q6H PRN PRN PRN Reason: Non-cardiac pain (mod-severe) Benzonatate (Tessalon Perle) 100 mg PO TID PRN PRN PRN Reason: coughing Carvedilol (Coreg) 12.5 mg PO BID [facility] Last Admin: 09/17/18 22:32 Dose: 12.5 mg Enoxaparin Sodium (Lovenox) 40 mg SC DAILY@1000 T[facility]A Fluticasone Propionate (Flonase Nasal [place]) 2 spray NASAL DAILY@2200 [facility] Last Admin: 09/18/18 00:32 Dose: Not Given Lactated Ringer's () 1,000 mls @ 100 mls/hr IV .Q10H [facility] Stop: 09/18/18 13:37 Last Admin: 09/18/18 08:39 Dose: 100 mls/hr Lisinopril (Zestril) 20 mg PO BID [facility] Last Admin: 09/17/18 22:32 Dose: 20 mg Magnesium Hydroxide (Milk Of Magnesia) 30 ml PO DAILY PRN PRN PRN Reason: Constipation Morphine Sulfate () 2 - 4 mg IV Q3H PRN PRN PRN Reason: SEVERE PAIN (6-10/10) Last Admin: 09/17/18 22:33 Dose: 4 mg Morphine Sulfate () 2 - 4 mg IV Q3H PRN PRN PRN Reason: SEVERE PAIN (6-10/10) Last Admin: 09/18/18 08:47 Dose: 2 mg Ondansetron HCl (Zofran) 4 mg IV Q8H PRN PRN PRN Reason: NAUSEA Sodium Chloride () 5 - 15 ml IV UD PRN PRN Reason: SALINE FLUSH Spironolactone (Aldactone) 50 mg PO DAILY [facility] Medical Necessity - Tobacco Use Smoking Status: Never smoker Assessment/Plan All Active Problems (Last Reviewed 09/18/18 @ 14:07 by Renuka Ng PA-C) Cholelithiasis (Acute) Family history of CVA (Acute) Hemorrhagic stroke (Resolved) Syncope (Resolved) History of intracranial hemorrhage (Resolved) 1. Acute on chronic gallstone pancreatitis * Admitted up with abdominal pain which radiated to his back. Initial lipase was 17,681. * CT of the abdomen done showed creatinine calcifications and inflammation consistent with acute on chronic pink otitis. * Was started on IV fluids and n.p.o. at time of review. * Call of was not elevated and triglycerides were also not elevated. Triglycerides down to 6122 this morning. * Gallbladder ultrasound done this morning showed multiple gallstones. * Consult general surgery for cholecystectomy. * maintain NPO and continue gentle hydration with IVF * 2. Combined diastolic and systolic heart failure * EF of 25%., with stage III diastolic dysfunction. * on coreg, lisinopril and aldactone * 3. paroxysmal Afib: on coreg. Not on oral anticoagulation, reason not clear. 4. Hypertension: Controlled. On Coreg, lisinopril and Aldactone. DVT prophylaxis: Lovenox Code Visit Inpatient E&M: 69887 [facility] L3
--- NOTE | 2018-09-18 11:35 | CASEMGMT ---
RN MINA Face to Face with patient for initial transition planning/care coordination assessment. RN CM introduced self and role at [facility]. Patient lying in bed, alert and oriented. Patient willing to participate in assessment and is able to answer all questions appropriately. Care providers, pharmacy, and demographics verified. Patient wishes to discharge home, denies need for home health at this time. Patient states he has no further needs or concerns at this time. CM to follow for discharge planning needs that may arise. PCP: Dr. Tomás Garces Specialists: [employer] technician [facility]acy[facility] Insurance: [employer] [facility] Prescription Benefit: Yes Living Will/HPOA: Yes, sister Radha Canales LNOK: sister Living Arrangements: Patient lives with sister in 2 story home with bed and bath on 1st floor. Patient states he is independent at home. Transportation: self/sister DME/HHC: Patient states that he has walker and built in shower bench. Patient denies oxygen, cpap, bipap, or nebulizer at home. Patient denies need for HHC. Has had prior HHC but states was awhile ago and came from [facility]. Has been to the inpatient rehab unit previously. Disposition Plan: Patient to dicharge home with family support and follow-up plans in place. Daniella SONI, RN, CM
[2018-09-18] MEDS: 0.9% NaCl Peripheral Flush Adult/Peds IV (11:47)
[2018-09-18] MEDS: Carvedilol 12.5 MG Tablet PO ×2 (11:47→21:10)
[2018-09-18] MEDS: Lisinopril 20 MG Tablet PO ×2 (11:47→21:10)
[2018-09-18] MEDS: Spironolactone 50 MG Tablet PO (11:48)
[2018-09-18 11:57] LABS: AST(SGOT) 15 U/L (15-37); Alanine Aminotransfer ALT/SGPT 15 U/L (16-61); Albumin, Serum 3.3 g/dL (3.2-5.0); Alkaline Phosphatase 61 U/L (45-117); Bilirubin, Direct 0.15 mg/dL (0.00-0.30); Globulin 3.6 g/dL (2.2-4.2); Protein, Total 6.9 g/dL (6.4-8.2)
--- NOTE | 2018-09-18 12:59 | CON.PCM_ITS ---
Problem List (1) Cholelithiasis Status: Acute (2) Acute on chronic pancreatitis Status: Chronic Reason for Consult Date of Consultation: 09/18/18 Reason for Consultation: Gallstone pancreatitis History of Present Illness: The patient is a 68 year old M who presents with 1 day history of left sided pain which radiated into the right upper quadrant and into his back. Patient states he has had left sided intermittent pain for years but attributed this to his two strokes he had in 2013. Patient stated he had a sandwich yesterday and a half hour after he ate, he had a band-like pain that started in the left side and wrapped around. Patient noted nausea. He states he has never had pain this severe before. Patient had called his nephew and took him to the ED. Patient denies vomiting. He denies change in bowel habits. He notes having two strokes within 3 months of each other in 2013. Patient noted he had left-sided weakness. He notes having some residual numbness currently however he has no debilitating factors from the stroke. Patient denies previous myocardial infarction, blood clots. Patient stated he was on Coumadin after his 1st stroke and then his second stroke it was discontinued due to a hemorrhage. Patient also has a history of CHF and A Fib. He currently sees Dr. Sutton for cardiology. He last was evaluated by Dr. Sutton approximately 3-4 months ago for cardiac clearance for knee replacement surgery. Patient notes he has had a chronic cough. He last had an ECHO on 05/11/18 which demonstrated: Mildly dilated left ventricle. Severe segmental systolic dysfunction (see wall motion). The estimated ejection fraction is 30 %. The left atrium is moderately enlarged. Mild (1+) eccentric mitral valve insufficiency. The global longitudinal strain = -9.9 % (normal). Mild pulmonary hypertension. No thrombus noted Patient notes previous tonsillectomy and multiple knee arthroscopies. He denies chest pain, shortness of breath. 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) Hypertension (Chronic) Medical History: Medical History (Last Reviewed 09/18/18 @ 14:07 by Renuka Ng PA-C) Cardiomyopathy, dilated (Chronic) I42.0 Chronic systolic (congestive) heart failure (Chronic) I50.22 Nonischemic cardiomyopathy, suspected viral Diagnosed in 2013 Hyperlipidemia (Chronic) E78.5 Hypertension (Chronic) I10 Encounter for long-term current use of high risk medication Z79.899 Allergies amlodipine Adverse Reaction (Severe, Verified 09/17/18 16:55) Swollen fingers atorvastatin [From Lipitor] Adverse Reaction (Severe, Verified 09/17/18 16:55) Myalgias Home Medications: Ambulatory Orders Medication Instructions Recorded spironolactone 25 mg tablet 50 mg PO DAILY tab 10/06/17 carvedilol 12.5 mg tablet 12.5 mg PO BID #180 tab 11/07/17 lisinopril 20 mg tablet 20 mg PO BID #180 tab 02/14/18 Surgical History: Surgical History (Last Reviewed 09/18/18 @ 14:07 by Renuka Ng PA-C) H/O knee surgery Z98.890 Surgical History: tonsillectomy, - - He has had surgery on both knees. Meniscus tear of right knee and tear of ligaments in the left knee. Tonsillectomy Psychiatric History: No pertinent psych hx Lives: Alone Smoking Status: Never smoker Alcohol: None Drugs: None - *Family History Maternal Family History: Family History (Last Reviewed 09/18/18 @ 14:08 by Renuka Ng PA-C) Father CAD (coronary artery disease) Mother CVA (cerebral vascular accident) Other Family history of CVA History Items: Heart Disease - age 76 Paternal Family History: Family History (Last Reviewed 09/18/18 @ 14:08 by Renuka Ng PA-C) Father CAD (coronary artery disease) Mother CVA (cerebral vascular accident) Other Family history of CVA History Items: Diabetes, Heart Disease - age 84 Review of Systems Constitutional: Reports: Anorexia, Fatigue. Denies: Weight Change HEENT: Denies: Head Aches, Sinus Congestion, Sinus Drainage Cardiovascular: Denies: Chest Pain, Palpitations Respiratory: Reports: Cough. Denies: Shortness of Breath, Shortness of breath at rest Gastrointestinal: Reports: Abdominal Pain, Nausea. Denies: Vomiting Genitourinary: Denies: Dysuria Musculoskeletal: Denies: Joint Pain, Joint Tenderness Skin: Denies: Rash, Wounds Neurological: Denies: Numbness, Tingling, Focal weakness Psychiatric: Denies: Anxiety, Depression, Homicidal Ideations, Suicidal Ideations Hematologic/ Lymphatic: Denies: Easy Bruising, Easy Bleeding, Hx of blood clot Patient Problems: Active and Suspected Problems (Last Reviewed 09/17/18 @ 21:39 by Phuc Serra MD) Cholelithiasis (Acute) - Physical Exam General: Alert, Oriented x3, Cooperative HEENT: Atraumatic, PERRLA, EOMI, Normocephalic Neck: Supple, No JVD, Negative Carotid Bruits Lungs: Clear to auscultation, Normal air movement Cardiovascular: Regular rate, No murmurs Abdomen: Bowel Sounds Present, Distended - slightly, Tender - RUQ; LUQ, - - Positive Nevarez's sign Extremities: No edema, Capillary Refill Less than 3 Seconds Skin: No rashes, No breakdown Musculoskeletal: No Tenderness to Palpation of Joints or Extremities Neurological: Neuro grossly intact Psych/Mental Status: Normal Affect, Appropriate Vital Signs Temp Pulse Resp BP Pulse Ox 98.2 F 65 16 136/82 H 95 09/18/18 08:40 09/18/18 08:40 09/18/18 08:40 09/18/18 08:40 09/18/18 08:40 Oxygen Delivery Method Room Air Weight: 217 lb 13.067 oz Body Mass Index (BMI) 30.4 Finger Stick Blood Glucose 83 Intake and Output for Last 24 Hours 09/16/18 09/17/18 09/18/18 23:59 23:59 23:59 Intake Total 2193 / 2193 Output Total 600 / 600 Balance 1593 / 1593 Laboratory Tests Past 24 Hrs 09/17/18 09/17/18 09/17/18 17:21 17:21 17:21 WBC 6.9 RBC 4.80 Hgb 13.9 Hct 42.4 MCV 88.3 MCH 29.0 MCHC 32.8 RDW 13.9 RDW Differential 44.7 H Plt Count 174 MPV 11.6 Immature Gran % (Auto) 0.100 Neut % (Auto) 69.6 Lymph % (Auto) 16.5 L [place] % (Auto) 9.9 Eos % (Auto) 3.3 Baso % (Auto) 0.6 Absolute Neuts (auto) 4.8 Absolute Lymphs (auto) 1.14 Total Counted Not Reportable Sodium 140 Potassium 4.5 Chloride 107 Carbon Dioxide 27.0 Anion Gap 6 BUN 21 H Creatinine 1.11 Estim Creat Clear Calc 65.95 Est GFR (MDRD) Af Amer 84 Est GFR (MDRD) Non-Af 70 BUN/Creatinine Ratio 18.9 Glucose 110 H Calcium 8.6 Total Bilirubin 0.40 Direct Bilirubin AST 15 ALT 15 L Alkaline Phosphatase 62 Total Protein 7.2 Albumin 3.3 Globulin 3.9 Albumin/Globulin Ratio 0.8 L Triglycerides Cholesterol LDL Cholesterol VLDL Cholesterol HDL Cholesterol Lipase 25084 H Urine Color Urine Clarity Urine pH Ur Specific [place] Urine Protein Urine Glucose (UA) Urine Ketones Urine Occult Blood Urine Nitrite Urine Bilirubin Urine Urobilinogen Ur Leukocyte Esterase Urine RBC Urine WBC Ur Squamous Epith Cells Urine Bacteria Urine Mucus Ethyl Alcohol < 3.0 09/17/18 09/18/18 09/18/18 18:35 05:40 05:40 WBC 7.7 RBC 4.72 Hgb 13.5 Hct 41.6 MCV 88.1 MCH 28.6 MCHC 32.5 RDW 14.1 RDW Differential 45.4 H Plt Count 167 MPV 11.2 Immature Gran % (Auto) 0.100 Neut % (Auto) 72.6 H Lymph % (Auto) 15.1 L [place] % (Auto) 8.7 Eos % (Auto) 3.1 Baso % (Auto) 0.4 Absolute Neuts (auto) 5.6 Absolute Lymphs (auto) 1.16 Total Counted Not Reportable Sodium 141 Potassium 4.6 Chloride 109 H Carbon Dioxide 23.0 Anion Gap 9 BUN 20 H Creatinine 1.12 Estim Creat Clear Calc 65.36 Est GFR (MDRD) Af Amer 83 Est GFR (MDRD) Non-Af 69 BUN/Creatinine Ratio 17.9 Glucose 104 Calcium 8.5 Total Bilirubin Direct Bilirubin AST ALT Alkaline Phosphatase Total Protein Albumin Globulin Albumin/Globulin Ratio Triglycerides 51 Cholesterol 145 LDL Cholesterol 90 VLDL Cholesterol 10 HDL Cholesterol 45 Lipase Urine Color Yellow Urine Clarity Clear Urine pH 6.5 Ur Specific [place] 1.010 Urine Protein Negative Urine Glucose (UA) Normal Urine Ketones Negative Urine Occult Blood Negative Urine Nitrite Negative Urine Bilirubin Negative Urine Urobilinogen Normal Ur Leukocyte Esterase Negative Urine RBC 0 SEEN Urine WBC 0 SEEN Ur Squamous Epith Cells 0-5 SEEN Urine Bacteria 0 SEEN Urine Mucus 0 SEEN Ethyl Alcohol 09/18/18 09/18/18 05:40 05:40 WBC RBC Hgb Hct MCV MCH MCHC RDW RDW Differential Plt Count MPV Immature Gran % (Auto) Neut % (Auto) Lymph % (Auto) [place] % (Auto) Eos % (Auto) Baso % (Auto) Absolute Neuts (auto) Absolute Lymphs (auto) Total Counted Sodium Potassium Chloride Carbon Dioxide Anion Gap BUN Creatinine Estim Creat Clear Calc Est GFR (MDRD) Af Amer Est GFR (MDRD) Non-Af BUN/Creatinine Ratio Glucose Calcium Total Bilirubin 0.50 Direct Bilirubin 0.15 AST 15 ALT 15 L Alkaline Phosphatase 61 Total Protein 6.9 Albumin 3.3 Globulin 3.6 Albumin/Globulin Ratio Triglycerides Cholesterol LDL Cholesterol VLDL Cholesterol HDL Cholesterol Lipase 6122 H Urine Color Urine Clarity Urine pH Ur Specific [place] Urine Protein Urine Glucose (UA) Urine Ketones Urine Occult Blood Urine Nitrite Urine Bilirubin Urine Urobilinogen Ur Leukocyte Esterase Urine RBC Urine WBC Ur Squamous Epith Cells Urine Bacteria Urine Mucus Ethyl Alcohol Assessment/Plan All Active Problems (Last Reviewed 09/17/18 @ 21:39 by Phuc Serra MD) Cholelithiasis (Acute) Family history of CVA (Acute) Hemorrhagic stroke (Resolved) Syncope (Resolved) History of intracranial hemorrhage (Resolved) I have been consulted on this patient in conjunction with Dr. Mccracken. Impression: Gallstone pancreatitis. Plan: I have discussed this patient with Dr. Mccracken. Dr. Mccracken will plan to perform a laparoscopic cholecystectomy with intraoperative cholangiogram. Procedure details, risks and benefits have been explained to the patient. Patient has had the opportunity to ask and have questions answered. Patient verbally understands and agrees with the plan. Continue NPO. Patient has been cleared per anesthesia with no additional testing needed. Order SCDs. Start antibiotics. Will plan for procedure tomorrow afternoon. Thank you for allowing us to participate in this patient's care. Code Visit Office Visits / Consults: [id number] IP Consult L3
[2018-09-18 15:00] VITALS: BP 139/82; PULSE 73; RESP 18; TEMP 37.3; O2SAT 96
--- NOTE | 2018-09-18 15:10 | CHAPLAIN ---
Type of Pastoral Visit _x__ Initial Visit ___ Follow-up Visit ___ On-call Visit ___ General Patient Visit ___ Spiritual Assessment ___ Family Conference ___ Bereavement ___ Rapid Response ___ Code Blue ___ Other (describe below) Pastoral Care Referral From _x__ Patient ___ Family ___ Nurse ___ Physician ___ Director Of Compensation ___ Religious Activities Director ___ Other (describe below) Sacrament/Intervention _x__ Active listening ___ Anointing ___ Rastafarian ___ Bereavement ___ Communion _x__ Meena exploration ___ ___ Life review _x__ Prayer ___ Reconciliation ___ Sacrament of Sick ___ Supportive presence ___ Wedding ___ Other (describe below) Pastoral Comments patient is in bed surrounded by many people identified as Tuesday morning friends; pt welcomes storeperson and asks for prayer support for his stomach, possible surgery, and heart condition; pt says he is member of a local mormonism; friends are laughing and telling jokes; much laughter in room; pt welcomes future spiritual care support
[2018-09-18 20:49] VITALS: BP 154/92; PULSE 82; RESP 20; TEMP 37.5; O2SAT 97
[2018-09-19] VITALS (13 sets, daily range): BP systolic 118–142; BP diastolic 65–91; PULSE 69–85; RESP 15–20; TEMP 36.2–37.4; O2SAT 93–97; BMI 30.4
--- NOTE | 2018-09-19 | GALL_PTH ---
PATIENT: SHANNAN HERRERA LOC: MS3 U#:[id number] AGE/SX: 68/M ROOM: KS322 RE09/17/[address]: Dr. Juju Chavez MD : [id number] BED: 1 DIS: 09/20/2018 SPEC #: [id number] RECD: 09/20/18 09:21 STATUS: LU REQ #: [id number] SUDHA: 09/19/18 00:[address]: Matt Mccracken DEPT: SURGICAL PATHOLOGY RECD BY: Jeff Gray ENTERED: 09/20/18 09:21 SP TYPE: GALLBLADDE OTHR DR: MD Dr. Phuc Burkett MD Dr. John K Miller, MD Dr. Nana Yaa Koram, MD Tissues: Gallbladder, NOS Procedures: Surgery Specimen Level III Comments: @ Ordering doctor for SUIII edited from to @ otis LEWIS at 09/20/18 1001 @ Submitting doctor edited from to @ by MARIXAOD at 09/20/18 1001 HEADER OPERATION: Laparoscopic cholecystectomy with intraoperative cholangiogram PRE-OP DIAGNOSIS: Gallstone pancreatitis TISSUE SUBMITTED: Gallbladder MICROSCOPIC DIAGNOSIS Gallbladder, cholecystectomy: Cholesterolosis, chronic cholecystitis and cholelithiasis. AM:molly 09/21/18 MICROSCOPIC DESCRIPTION Slides are reviewed. GROSS DESCRIPTION Received is one container labeled with the patient's name and designated gallbladder. The specimen consists of a gallbladder measuring 8 x 3.5 x 2 cm. The external surface is smooth and glistening. Focally, it is granular, hemorrhagic and contains cautery artifact. The lumen of the gallbladder contains yellow-green mucoid bile and three mishra stones ranging in size to 1.5 cm. The mucosa is bile-stained and without any mass lesions. The gallbladder wall averages 0.1 cm in thickness and is free of mass lesions. Python Programmer sections of the gallbladder and the cystic duct are submitted in one cassette. / AM:molly 09/20/18 TC:3 CPT: 16317
[2018-09-19] MEDS: Lactated Ringers 1,000 ML 100 ML IV ×3 (00:13→20:07)
[2018-09-19] MEDS: Morphine 2 MG/ML Syringe IV ×4 (03:56→20:12)
--- NOTE | 2018-09-19 05:00 | EKG12_ITS ---
Test Reason : AM EKG Blood Pressure : / mmHG Vent. Rate : 078 BPM Atrial Rate : 078 BPM P-R Int : 164 ms QRS Dur : 104 ms QT Int : 384 ms P-R-T Axes : 045 -33 063 degrees QTc Int : 437 ms Sinus rhythm with occasional Premature ventricular complexes Left axis deviation Inferior infarct (cited on or before 17-OCT-2015) Abnormal ECG When compared with ECG of 17-OCT-2015 13:22, Premature ventricular complexes are now Present QT has shortened Confirmed by ELIAZAR STEPHENS, MIKKI ([id number]), scientific publications editor DEJON HERRERA ([id number]) on 09/22/2018 9:29:16 AM Referred By: RAMON Confirmed By:MIKKI PEREA MD
[2018-09-19 06:07] LABS: Absolute Lymphocyte Count 0.94 X10^3/ul (0.83-4.51); Absolute Neutrophil Count 7.8 X10^3/uL (2.0-7.7); Basophil# 0.03 X10^3/uL; Basophil% 0.3 % (0-1); Eosinophil# 0.16 X10^3/uL; Eosinophils% 1.6 % (0-5); Hematocrit 36.7 % (40-54); Hemoglobin 12.3 g/dl (13.0-16.5); Lymphocyte # 0.94 X10^3/ul (4.0); Lymphocyte % 9.5 % (19-41); Mean Corp Hgb Conc 33.5 g/gl (32-36); Mean Corpuscular Hgb 29.6 pg (27.0-32.0); Mean Corpuscular Volume 88.2 fL (80-94); Mean Platelet Vol. 11.3 fl (6.2-12.0); Monocyte# 0.89 X10^3/uL; Neutrophil # 7.84 X10^3/uL (2.7-7.7); Neutrophil % 79.2 % (47-70); Platelet Count 137 K/mm3 (150-450); RBC Distribution Width CV 13.8 % (11.6-14.6); RBC Distribution Width SD 43.8 fl (35.1-43.9); Red Blood Count 4.16 M/mm3 (4.6-6.2); White Blood Count 9.9 K/mm3 (4.4-11.0)
[2018-09-19 06:08] LABS: POSITIVE COUNT NO; POSITIVE DIFFERENTIAL NO; POSITIVE MORPHOLOGY NO
[2018-09-19 06:36] LABS: ALB/GLOB Ratio 0.9 RATIO (0.9-2.4); AST(SGOT) 14 U/L (15-37); Alanine Aminotransfer ALT/SGPT 12 U/L (16-61); Albumin, Serum 2.8 g/dL (3.2-5.0); Alkaline Phosphatase 52 U/L (45-117); Anion Gap 10 (5-15); BUN 15 mg/dL (7-18); BUN/Creat Ratio 15.4 RATIO (10-20); Calcium,Total 8.3 mg/dL (8.5-10.1); Chloride 107 mmol/L (98-107); Creatinine, Serum 0.98 mg/dL (0.70-1.30); EST Glomerular Filtration Rate 81 mL/min (>60); Est Glom Filt Rate - Afr Amer 98 mL/min (>60); Globulin 3.2 g/dL (2.2-4.2); Glucose 92 mg/dL (74-106); Potassium 4.2 mmol/L (3.5-5.1); Sodium Level 139 mmol/L (136-145)
--- NOTE | 2018-09-19 07:19 | PN.SURG_ITS ---
Patient Problems: Active and Suspected Problems (Last Reviewed 09/18/18 @ 14:07 by Renuka Ng PA-C) Cholelithiasis (Acute) Subjective: Patient reports pain is better than it was yesterday. No nausea or vomiting - Physical Exam General: Alert, Oriented x3, Cooperative HEENT: Atraumatic, PERRLA, EOMI, Normocephalic Neck: Supple, No JVD, Negative Carotid Bruits Lungs: Clear to auscultation, Normal air movement Cardiovascular: Regular rate Abdomen: Soft, Non-Distended, Tender - Epigastric Skin: No breakdown Musculoskeletal: No Tenderness to Palpation of Joints or Extremities Neurological: Cranial nerves II-XII grossly intact Psych/Mental Status: Normal Affect, Appropriate Vital Signs Temp Pulse Resp BP Pulse Ox 99.2 F H 82 20 H 139/82 H 94 09/19/18 03:51 09/19/18 03:51 09/19/18 03:51 09/19/18 03:51 09/19/18 03:51 Oxygen Delivery Method Room Air Weight: 217 lb 13.067 oz Body Mass Index (BMI) 30.4 Finger Stick Blood Glucose 83 Intake and Output for Last 24 Hours 09/17/18 09/18/18 09/19/18 23:59 23:59 23:59 Intake Total 2702 / 2702 1194 / 1194 Output Total 1075 / 1075 750 / 750 Balance 1627 / 1627 444 / 444 Laboratory Tests Past 24 Hrs 09/18/18 09/18/18 09/19/18 05:40 05:40 05:43 WBC 9.9 RBC 4.16 L Hgb 12.3 L Hct 36.7 L MCV 88.2 MCH 29.6 MCHC 33.5 RDW 13.8 RDW Differential 43.8 Plt Count 137 L MPV 11.3 Immature Gran % (Auto) 0.400 Neut % (Auto) 79.2 H Lymph % (Auto) 9.5 L [place] % (Auto) 9.0 Eos % (Auto) 1.6 Baso % (Auto) 0.3 Absolute Neuts (auto) 7.8 H Absolute Lymphs (auto) 0.94 Total Counted Not Reportable Sodium Potassium Chloride Carbon Dioxide Anion Gap BUN Creatinine Estim Creat Clear Calc Est GFR (MDRD) Af Amer Est GFR (MDRD) Non-Af BUN/Creatinine Ratio Glucose Calcium Total Bilirubin 0.50 Direct Bilirubin 0.15 AST 15 ALT 15 L Alkaline Phosphatase 61 Total Protein 6.9 Albumin 3.3 Globulin 3.6 Albumin/Globulin Ratio Lipase 6122 H 09/19/18 05:43 WBC RBC Hgb Hct MCV MCH MCHC RDW RDW Differential Plt Count MPV Immature Gran % (Auto) Neut % (Auto) Lymph % (Auto) [place] % (Auto) Eos % (Auto) Baso % (Auto) Absolute Neuts (auto) Absolute Lymphs (auto) Total Counted Sodium 139 Potassium 4.2 Chloride 107 Carbon Dioxide 22.0 Anion Gap 10 BUN 15 Creatinine 0.98 Estim Creat Clear Calc 74.70 Est GFR (MDRD) Af Amer 98 Est GFR (MDRD) Non-Af 81 BUN/Creatinine Ratio 15.4 Glucose 92 Calcium 8.3 L Total Bilirubin 0.80 Direct Bilirubin AST 14 L ALT 12 L Alkaline Phosphatase 52 Total Protein 6.0 L Albumin 2.8 L Globulin 3.2 Albumin/Globulin Ratio 0.9 Lipase Medical Necessity - Tobacco Use Smoking Status: Never smoker Assessment/Plan All Active Problems (Last Reviewed 09/18/18 @ 14:07 by Renuka Ng PA-C) Cholelithiasis (Acute) Family history of CVA (Acute) Hemorrhagic stroke (Resolved) Syncope (Resolved) History of intracranial hemorrhage (Resolved) 68-year-old male with gallstone pancreatitis 1. Patient doing well this morning. Continue n.p.o. and antibiotics for possible cholecystitis. Plan for laparoscopic cholecystectomy this afternoon. Matt Mccracken MD Pager: [facility] [address] [place] [address], [address] [place] [address] Office:
[2018-09-19] MEDS: Carvedilol 12.5 MG Tablet PO ×2 (09:42→22:05)
--- NOTE | 2018-09-19 11:48 | PCM.PN.HOSP ---
Patient Problems: Active and Suspected Problems (Last Reviewed 09/18/18 @ 14:07 by Renuka Ng PA-C) Cholelithiasis (Acute) Subjective: Patient seen and examined. He had an uneventful night. Abdominal pain is improved significantly. He denies any fever chills, cough or chest pain, shortness of breath, diarrhea vomiting. Review of systems otherwise negative. Patient was n.p.o. at time of review in preparation for cholecystectomy today. Vitals/I&O's: Vital Signs Temp Pulse Resp BP Pulse Ox 98.6 F 84 18 137/81 H 95 09/19/18 09:15 09/19/18 09:15 09/19/18 09:15 09/19/18 09:15 09/19/18 09:15 Oxygen Delivery Method Room Air Weight: 217 lb 13.067 oz Body Mass Index (BMI) 30.4 Finger Stick Blood Glucose 83 Intake and Output for Last 24 Hours 09/17/18 09/18/18 09/19/18 23:59 23:59 23:59 Intake Total 2702 / 2702 1194 / 1194 Output Total 1075 / 1075 750 / 750 Balance 1627 / 1627 444 / 444 General: Alert, Oriented x3, Cooperative, No apparent distress HEENT: Atraumatic, PERRLA, EOMI, Normocephalic Oral: Moist Mucosa Neck: Supple, No JVD, Negative Carotid Bruits Lungs: Clear to auscultation, Normal air movement, No rhonchi, No wheeze, No rales Cardiovascular: Regular rate, Regular Rhythm, Normal S1, Normal S2, No murmurs Abdomen: Bowel Sounds Present, Soft, nontender no organomegaly Extremities: No edema, Capillary Refill Less than 3 Seconds Skin: No rashes, No breakdown Musculoskeletal: No Tenderness to Palpation of Joints or Extremities Lymphatic: No Cervical, Supraclavicular, or Inguinal Adenopathy Neurological: Cranial nerves II-XII grossly intact Psych/Mental Status: Normal Affect, Appropriate, Alert and oriented to time, place, person, mood and affect Laboratory Results 09/18/18 05:40: Total Bilirubin 0.50, Direct Bilirubin 0.15, AST 15, ALT 15 L, Alkaline Phosphatase 61, Total Protein 6.9, Albumin 3.3, Globulin 3.6 09/19/18 05:43: WBC 9.9, RBC 4.16 L, Hgb 12.3 L, Hct 36.7 L, MCV 88.2, MCH 29.6, MCHC 33.5, RDW 13.8, RDW Differential 43.8, Plt Count 137 L, MPV 11.3, Immature Gran % (Auto) 0.400, Neut % (Auto) 79.2 H, Lymph % (Auto) 9.5 L, [place] % (Auto) 9.0, Eos % (Auto) 1.6, Baso % (Auto) 0.3, Absolute Neuts (auto) 7.8 H, Absolute Lymphs (auto) 0.94, Total Counted Not Reportable 09/19/18 05:43: Sodium 139, Potassium 4.2, Chloride 107, Carbon Dioxide 22.0, Anion Gap 10, BUN 15, Creatinine 0.98, Estim Creat Clear Calc 74.70, Est GFR (MDRD) Af Amer 98, Est GFR (MDRD) Non-Af 81, BUN/Creatinine Ratio 15.4, Glucose 92, Calcium 8.3 L, Total Bilirubin 0.80, AST 14 L, ALT 12 L, Alkaline Phosphatase 52, Total Protein 6.0 L, Albumin 2.8 L, Globulin 3.2, Albumin/Globulin Ratio 0.9 Diagnostic Data Abdomen/Pelvis CT 09/17/18 17:04 IMPRESSION: Acute on chronic pancreatitis. Small amount of free fluid. No evidence of pancreatic hemorrhage, necrosis or pseudocyst formation. Electronically Signed: Sylvester Burns, at 19:49 EST Tel , Service support , Abdomen Ultrasound 09/17/18 21:42 IMPRESSION: Multiple gallstones. Thickened gallbladder wall. Hepatic cysts. Electronically Signed: Jose Francisco Whitfield MD at 10:48 EST , Service support , Current Medications Acetaminophen (Tylenol) 650 mg PO Q6H PRN PRN PRN Reason: Non-cardiac pain (mod-severe) Benzonatate (Tessalon Perle) 100 mg PO TID PRN PRN PRN Reason: coughing Carvedilol (Coreg) 12.5 mg PO BID [facility] Last Admin: 09/19/18 09:42 Dose: 12.5 mg Enoxaparin Sodium (Lovenox) 40 mg SC DAILY@1000 [facility] Last Admin: 09/18/18 12:06 Dose: Not Given Fluticasone Propionate (Flonase Nasal [place]) 2 spray NASAL DAILY@2200 [facility] Last Admin: 09/18/18 21:07 Dose: Not Given Piperacillin Sod/Tazobactam (Sod 3.375 gm/ Sodium Chloride) 50 mls @ 12.5 mls/hr IV Q8 [facility] Last Admin: 09/19/18 06:11 Dose: 12.5 mls/hr Lactated Ringer's () 1,000 mls @ 100 mls/hr IV .Q10H [facility] Last Admin: 09/19/18 09:46 Dose: 100 mls/hr Lisinopril (Zestril) 20 mg PO BID [facility] Last Admin: 09/19/18 09:47 Dose: Not Given Magnesium Hydroxide (Milk Of Magnesia) 30 ml PO DAILY PRN PRN PRN Reason: Constipation Morphine Sulfate () 2 - 4 mg IV Q3H PRN PRN PRN Reason: SEVERE PAIN (6-10/10) Last Admin: 09/17/18 22:33 Dose: 4 mg Morphine Sulfate () 2 - 4 mg IV Q3H PRN PRN PRN Reason: SEVERE PAIN (6-10/10) Last Admin: 09/19/18 09:42 Dose: 2 mg Ondansetron HCl (Zofran) 4 mg IV Q8H PRN PRN PRN Reason: NAUSEA Sodium Chloride () 5 - 15 ml IV UD PRN PRN Reason: SALINE FLUSH Last Admin: 09/18/18 11:47 Dose: 10 ml Spironolactone (Aldactone) 50 mg PO DAILY [facility] Last Admin: 09/19/18 09:47 Dose: Not Given Medical Necessity - Tobacco Use Smoking Status: Never smoker Assessment/Plan All Active Problems (Last Reviewed 09/18/18 @ 14:07 by Renuka Ng PA-C) Cholelithiasis (Acute) Family history of CVA (Acute) Hemorrhagic stroke (Resolved) Syncope (Resolved) History of intracranial hemorrhage (Resolved) 1. Acute on chronic gallstone pancreatitis Stable. Pain is improved. Gallbladder ultrasound showed multiple gallstones in general surgery on board. Currently n.p.o. and is for laparoscopic cholecystectomy today. Continue IV fluids and pain medication. 2. 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 on coreg, lisinopril and aldactone 3. paroxysmal Afib: on coreg. Not on oral anticoagulation, reason not clear. 4. Hypertension: Controlled. On Coreg, lisinopril and Aldactone. DVT prophylaxis: Lovenox Code Visit Inpatient E&M: 68049 Subs Hosp L3
--- NOTE | 2018-09-19 11:55 | NURSING ---
called report to Kathie in AC. informed that pt 1400 dose of zosyn was sent down with him due to surgery time at 1400. pt transported off this unit via bed at this time
--- NOTE | 2018-09-19 15:05 | RAD_ITS ---
CLINICAL HISTORY: Male, 68 years old. PROCEDURE: CHOLANGIOGRAM - CONSENT: SEDATION: FLUOROSCOPY TIME (if supplied): ( ) minutes/seconds Placement of the catheter and the procedure were performed by: Fluoroscopy was provided by , who was present in the room time of the procedure. TECHNIQUE: (All elements of maximal sterile barrier technique followed, including US elements as applicable) FINDINGS: Contrast is seen to opacify portions of the gallbladder, the cystic duct, the intrahepatic biliary radicles, the common hepatic duct and the common bile duct with easy flow into the duodenal sweep. No abnormal and persistent filling defects identified in the biliary tree. The pancreatic duct is not visualized. The entire biliary tree is of normal caliber IMPRESSION: A normal intraoperative cholangiogram Electronically Signed: Ken Centeno MD at 2:09 EST Tel , Service support , RAD/Cholangiogram/ O R,Initial
[2018-09-19] MEDS: Bupiv/Epi 0.25% 30 ML Vial (15:46)
--- NOTE | 2018-09-19 16:01 | OP.PCM_ITS ---
Problem List (1) Gallstone pancreatitis Status: Acute Report of Operation Date of Procedure: 09/19/18 Pre-Operative Diagnosis: Gallstone pancreatitis Post-Operative Diagnosis: Same Surgery/Procedure Performed:: Laparoscopic cholecystectomy with cholangiogram Specimen's removed: Gallbladder and contents Description of Procedure: After obtaining informed consent patient was brought back to the operating room. General anesthesia was induced. The abdomen was prepped and draped in usual sterile fashion. A small midline incision was made superior to the umbilicus and deepened to the level of fascia. The fascia was elevated and incised. Next the peritoneum was elevated and incised in the same fashion. Finger sweep was performed and the Jerome trocar was placed into the abdomen. The balloon was inflated. The abdomen was inflated to 15 mmHg. Next a camera was introduced into the abdomen and the abdomen was inspected. Next under direct visualization three 5-mm ports were placed one subxiphoid and 2 subcostal. Next the gallbladder was elevated and retracted toward the right shoulder. The peritoneum was stripped from the gallbladder. The gallbladder was inflamed and adherent to the omentum. This was bluntly dissected free. The gallbladder was pierced and suctioned of all of his contents to make dissection easier. There was some spillage of bile. The infundibulum was located and retracted laterally. Next the triangle of [place] was dissected and the cystic duct and cystic artery were identified. Cholangiograms were performed. The Jeronimo clamp was used to clamp across the infundibulum and the catheter needle was inserted into the gallbladder. Under fluoroscopy contrast was instilled into the gallbladder and the common duct, cystic duct as well as proximal hepatic ducts were identified. There was good filling of the duodenum. There were no filling defects noted in the common bile duct. The clamp was removed as well as the need le and the infundibulum was grasped once more. Three hemolock clips were placed across the cystic duct. The cystic duct was then divided leaving 2 clips on the stump. The cystic artery was clipped and divided in the same fashion. The hook cautery was then used to take the gallbladder off of the gallbladder bed. Hemostasis was obtained. Gallbladder fossa was irrigated and no active bleeding or bile leakage was noted. Next the camera switched to a 5 mm camera and introduced in the subxiphoid port. An Endopouch bag was placed through the umbilical port and the gallbladder was placed into it. The gallbladder was then removed through the umbilical incision. The camera was then reinserted through the umbilical port. The gallbladder fossa was inspected once more and noted to be hemostatic with no leaking bile. The abdomen was suctioned dry. The 5 mm ports were removed under direct visualization. The umbilical port was then removed and the air was removed from the abdomen. Next using an 0 Vicryl suture the umbilical fascia was closed in a [id number] fashion. The umbilical port site was irrigated local anesthetic was administered to all the incisions. All the incisions were closed with interrupted subcuticular 4-0 Monocryl sutures followed by Steri-Strips and dressings. The patient was awoken and taken to PACU in stable condition. - Admit VTE Documentation VTE Mechan Device Prophylaxis: SCD's
[2018-09-19] MEDS: 0.9% NaCl Peripheral Flush Adult/Peds IV ×2 (18:32→20:11)
[2018-09-19] MEDS: Lisinopril 20 MG Tablet PO (22:05)
[2018-09-19] MEDS: Fluticasone 0.05% 1 SPRAY NASAL.SRY 2 SPRAY NASAL (22:05)
[2018-09-19] MEDS: Docusate Sodium 100 MG Capsule PO (22:05)
[2018-09-20 02:12] VITALS: BP 123/66; PULSE 73; RESP 18; TEMP 37.4; O2SAT 97
[2018-09-20] MEDS: Lactated Ringers 1,000 ML 100 ML IV (05:41)
[2018-09-20 06:46] LABS: Absolute Lymphocyte Count 0.95 X10^3/ul (0.83-4.51); Absolute Neutrophil Count 8.7 X10^3/uL (2.0-7.7); Basophil# 0.03 X10^3/uL; Basophil% 0.3 % (0-1); Eosinophil# 0.23 X10^3/uL; Eosinophils% 2.1 % (0-5); Hematocrit 36.7 % (40-54); Hemoglobin 11.6 g/dl (13.0-16.5); Lymphocyte # 0.95 X10^3/ul (4.0); Lymphocyte % 8.7 % (19-41); Mean Corp Hgb Conc 31.6 g/gl (32-36); Mean Corpuscular Hgb 28.9 pg (27.0-32.0); Mean Corpuscular Volume 91.5 fL (80-94); Mean Platelet Vol. 10.7 fl (6.2-12.0); Monocyte# 0.93 X10^3/uL; Monocyte% 8.5 % (0-10); Neutrophil # 8.74 X10^3/uL (2.7-7.7); Neutrophil % 80.2 % (47-70); POSITIVE COUNT NO; POSITIVE DIFFERENTIAL NO; POSITIVE MORPHOLOGY NO; Platelet Count 121 K/mm3 (150-450); RBC Distribution Width CV 14.2 % (11.6-14.6); RBC Distribution Width SD 47.6 fl (35.1-43.9); Red Blood Count 4.01 M/mm3 (4.6-6.2); White Blood Count 10.9 K/mm3 (4.4-11.0)
[2018-09-20 06:56] LABS: Anion Gap 10 (5-15); BUN 13 mg/dL (7-18); BUN/Creat Ratio 12.7 RATIO (10-20); Calcium,Total 7.8 mg/dL (8.5-10.1); Chloride 108 mmol/L (98-107); Creatinine, Serum 1.02 mg/dL (0.70-1.30); EST Glomerular Filtration Rate 77 mL/min (>60); Est Glom Filt Rate - Afr Amer 93 mL/min (>60); Estimated Creatinine Clearance 71.77 ml/min; Glucose 93 mg/dL (74-106); Potassium 4.2 mmol/L (3.5-5.1); Sodium Level 137 mmol/L (136-145)
--- NOTE | 2018-09-20 07:17 | PN.SURG_ITS ---
Patient Problems: Active and Suspected Problems (Last Reviewed 09/18/18 @ 14:07 by Renuka gN PA-C) Cholelithiasis (Acute) Gallstone pancreatitis (Acute) Subjective: Patient is doing well with no epigastric pain is only pain is at his umbilical incision site. No nausea or vomiting overnight. - Physical Exam General: Alert, Oriented x3 Lungs: Normal air movement Abdomen: Soft, Non-Distended, - - Mild tenderness at the umbilicus. The umbilical incision did have some oozing. No erythema. No epigastric pain. Vital Signs Temp Pulse Resp BP Pulse Ox 99.3 F H 73 18 123/66 H 97 09/20/18 02:12 09/20/18 02:12 09/20/18 02:12 09/20/18 02:12 09/20/18 02:12 Oxygen Flow Rate (L/min) 2 Oxygen Delivery Method Nasal Cannula Weight: 217 lb 13.067 oz Body Mass Index (BMI) 30.4 Finger Stick Blood Glucose 83 Intake and Output for Last 24 Hours 09/18/18 09/19/18 09/20/18 23:59 23:59 23:59 Intake Total 2702 / 2702 3258 / 3258 1340 / 1340 Output Total 1075 / 1075 1050 / 1050 500 / 500 Balance 1627 / 1627 2208 / 2208 840 / 840 Laboratory Tests Past 24 Hrs 09/20/18 09/20/18 06:18 06:18 WBC 10.9 RBC 4.01 L Hgb 11.6 L Hct 36.7 L MCV 91.5 MCH 28.9 MCHC 31.6 L RDW 14.2 RDW Differential 47.6 H Plt Count 121 L MPV 10.7 Immature Gran % (Auto) 0.200 Neut % (Auto) 80.2 H Lymph % (Auto) 8.7 L [place] % (Auto) 8.5 Eos % (Auto) 2.1 Baso % (Auto) 0.3 Absolute Neuts (auto) 8.7 H Absolute Lymphs (auto) 0.95 Total Counted Not Reportable Sodium 137 Potassium 4.2 Chloride 108 H Carbon Dioxide 19.0 L Anion Gap 10 BUN 13 Creatinine 1.02 Estim Creat Clear Calc 71.77 Est GFR (MDRD) Af Amer 93 Est GFR (MDRD) Non-Af 77 BUN/Creatinine Ratio 12.7 Glucose 93 Calcium 7.8 L Medical Necessity - Tobacco Use Smoking Status: Never smoker Assessment/Plan All Active Problems (Last Reviewed 09/18/18 @ 14:07 by Renuka Ng PA-C) Cholelithiasis (Acute) Gallstone pancreatitis (Acute) Family history of CVA (Acute) Hemorrhagic stroke (Resolved) Syncope (Resolved) History of intracranial hemorrhage (Resolved) 68-year-old male status post lap scopic cholecystectomy and gallstone pancreatitis 1. Patient appears to be doing well this morning. He is no longer complaining of epigastric pain. I will start him on a clear liquid diet and advance as tolerated. The patient did have some bloody oozing from his umbilical incision but there was a little bit of bleeding during surgery. There is no erythema or purulent discharge. 2. Once patient is tolerating a diet he may be discharged home and follow-up with me in 2 weeks. 3. I have stopped antibiotics. Matt Mccracken MD Pager: [facility] [address] [place] [address] [address] [place] [address] Office:
[2018-09-20] MEDS: BENZOCAINE/MENTHOL 1 LOZENGE 2 LOZENGE MUCOUS MEM ×2 (07:34→10:03)
[2018-09-20 08:06] VITALS: BP 120/70; PULSE 71; RESP 16; TEMP 37.5; O2SAT 96
[2018-09-20 08:43] VITALS: BP 114/66; PULSE 72; RESP 16; TEMP 36.8; O2SAT 95
[2018-09-20] MEDS: Spironolactone 50 MG Tablet PO (09:44)
[2018-09-20] MEDS: Docusate Sodium 100 MG Capsule PO (09:44)
[2018-09-20] MEDS: Carvedilol 12.5 MG Tablet PO (09:44)
[2018-09-20] MEDS: Lisinopril 20 MG Tablet PO (09:46)
[2018-09-20 11:44] VITALS: BP 111/66; PULSE 72; RESP 16; TEMP 37.1; O2SAT 94
--- NOTE | 2018-09-20 11:50 | PCM.PN.HOSP ---
Patient Problems: Active and Suspected Problems (Last Reviewed 09/18/18 @ 14:07 by Renuka Ng PA-C) Cholelithiasis (Acute) Gallstone pancreatitis (Acute) Subjective: Patient seen and examined. Today's postop day 1 after laparoscopic cholecystectomy with cholangiogram. He has no complaints and pain is well controlled. He denied any fever chills, palpitations or dizziness, diarrhea vomiting. Per general surgery, is to be started on clear liquid diet to advance as tolerated. Labs and vitals reviewed. Vitals/I&O's: Vital Signs Temp Pulse Resp BP Pulse Ox 98.7 F 72 16 111/66 94 09/20/18 11:44 09/20/18 11:44 09/20/18 11:44 09/20/18 11:44 09/20/18 11:44 Oxygen Flow Rate (L/min) 2 Oxygen Delivery Method Room Air Weight: 217 lb 13.067 oz Body Mass Index (BMI) 30.4 Finger Stick Blood Glucose 83 Intake and Output for Last 24 Hours 09/18/18 09/19/18 09/20/18 23:59 23:59 23:59 Intake Total 2702 / 2702 3258 / 3258 2130 / 2130 Output Total 1075 / 1075 1050 / 1050 700 / 700 Balance 1627 / 1627 2208 / 2208 1430 / 1430 General: Alert, Oriented x3, Cooperative, No apparent distress HEENT: Atraumatic, PERRLA, EOMI, Normocephalic Oral: Moist Mucosa Neck: Supple, No JVD, Negative Carotid Bruits Lungs: Clear to auscultation, Normal air movement, No rhonchi, No wheeze, No rales Cardiovascular: Regular rate, Regular Rhythm, Normal S1, Normal S2, No murmurs Abdomen: Bowel Sounds Present, Soft, Non Tender, - - dressing over laparoscopic site is clean and dry. Extremities: No clubbing, No cyanosis, No edema, Capillary Refill Less than 3 Seconds Skin: No rashes, No breakdown Musculoskeletal: No Tenderness to Palpation of Joints or Extremities Lymphatic: No Cervical, Supraclavicular, or Inguinal Adenopathy Neurological: Cranial nerves II-XII grossly intact Psych/Mental Status: Normal Affect, Appropriate, Alert and oriented to time, place, person, mood and affect Laboratory Results 09/20/18 06:18: WBC 10.9, RBC 4.01 L, Hgb 11.6 L, Hct 36.7 L, MCV 91.5, MCH 28.9, MCHC 31.6 L, RDW 14.2, RDW Differential 47.6 H, Plt Count 121 L, MPV 10.7, Immature Gran % (Auto) 0.200, Neut % (Auto) 80.2 H, Lymph % (Auto) 8.7 L, [place] % (Auto) 8.5, Eos % (Auto) 2.1, Baso % (Auto) 0.3, Absolute Neuts (auto) 8.7 H, Absolute Lymphs (auto) 0.95, Total Counted Not Reportable 09/20/18 06:18: Sodium 137, Potassium 4.2, Chloride 108 H, Carbon Dioxide 19.0 L, Anion Gap 10, BUN 13, Creatinine 1.02, Estim Creat Clear Calc 71.77, Est GFR (MDRD) Af Amer 93, Est GFR (MDRD) Non-Af 77, BUN/Creatinine Ratio 12.7, Glucose 93, Calcium 7.8 L Current Medications Acetaminophen (Tylenol) 650 mg PO Q6H PRN PRN PRN Reason: Non-cardiac pain (mod-severe) Benzonatate (Tessalon Perle) 100 mg PO TID PRN PRN PRN Reason: coughing Carvedilol (Coreg) 12.5 mg PO BID [facility] Last Admin: 09/20/18 09:44 Dose: 12.5 mg Docusate Sodium (Colace) 100 mg PO BID [facility] Last Admin: 09/20/18 09:44 Dose: 100 mg Enoxaparin Sodium (Lovenox) 40 mg SC DAILY@1000 [facility] Last Admin: 09/20/18 09:46 Dose: Not Given Fluticasone Propionate (Flonase Nasal [place]) 2 spray NASAL DAILY@2200 [facility] Last Admin: 09/19/18 22:05 Dose: 2 spray Lactated Ringer's () 1,000 mls @ 100 mls/hr IV .Q10H [facility] Last Admin: 09/20/18 05:41 Dose: 100 mls/hr Lisinopril (Zestril) 20 mg PO BID [facility] Last Admin: 09/20/18 09:46 Dose: 20 mg Magnesium Hydroxide (Milk Of Magnesia) 30 ml PO DAILY PRN PRN PRN Reason: Constipation Morphine Sulfate () 2 - 4 mg IV Q3H PRN PRN PRN Reason: SEVERE PAIN (6-10/10) Last Admin: 09/17/18 22:33 Dose: 4 mg Morphine Sulfate () 2 - 4 mg IV Q3H PRN PRN PRN Reason: SEVERE PAIN (6-10/10) Last Admin: 09/19/18 20:12 Dose: 2 mg Ondansetron HCl (Zofran) 4 mg IV Q8H PRN PRN PRN Reason: NAUSEA Sodium Chloride () 5 - 15 ml IV UD PRN PRN Reason: SALINE FLUSH Last Admin: 09/19/18 20:11 Dose: 10 ml Spironolactone (Aldactone) 50 mg PO DAILY [facility] Last Admin: 09/20/18 09:44 Dose: 50 mg Throat Lozenges (Cepacol Sore Throat Lozenge) 2 lozenge MUCOUS MEM Q2H PRN PRN PRN Reason: SORE THROAT Last Admin: 09/20/18 10:03 Dose: 1 lozenge Medical Necessity - Tobacco Use Smoking Status: Never smoker Assessment/Plan All Active Problems (Last Reviewed 09/18/18 @ 14:07 by Renuka Ng PA-C) Cholelithiasis (Acute) Gallstone pancreatitis (Acute) Family history of CVA (Acute) Hemorrhagic stroke (Resolved) Syncope (Resolved) History of intracranial hemorrhage (Resolved) 1. Acute on chronic gallstone pancreatitis s/p laparoscopic cholecystectomy with intraoperative cholangiogram today is POD 1 has no complaitns. pain well controlled to start clear liquids,and advance as tolerated IV antibiotics stopped 2. 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 on coreg, lisinopril and aldactone 3. paroxysmal Afib: on coreg. not anticoagulated though CHADVASC score is ~ 3. To follow up with his head cager on outpatient basis 4. Hypertension: Controlled. On Coreg, lisinopril and Aldactone. DVT prophylaxis: Lovenox Code Visit Inpatient E&M: 91469 Subs Hosp L2
--- NOTE | 2018-09-20 11:55 | PN_ITS ---
Patient Problems: Active and Suspected Problems (Last Reviewed 09/18/18 @ 14:07 by Renuka Ng PA-C) Cholelithiasis (Acute) Gallstone pancreatitis (Acute) Subjective: Patient seen and examined. Today's postop day 1 after laparoscopic cholecystectomy with cholangiogram. He has no complaints and pain is well controlled. He denied any fever chills, palpitations or dizziness, diarrhea vomiting. Per general surgery, is to be started on clear liquid diet to advance as tolerated. Labs and vitals reviewed. Vitals/I&O's: Vital Signs Temp Pulse Resp BP Pulse Ox 98.7 F 72 16 111/66 94 09/20/18 11:44 09/20/18 11:44 09/20/18 11:44 09/20/18 11:44 09/20/18 11:44 Oxygen Flow Rate (L/min) 2 Oxygen Delivery Method Room Air Weight: 217 lb 13.067 oz Body Mass Index (BMI) 30.4 Finger Stick Blood Glucose 83 Intake and Output for Last 24 Hours 09/18/18 09/19/18 09/20/18 23:59 23:59 23:59 Intake Total 2702 / 2702 3258 / 3258 2130 / 2130 Output Total 1075 / 1075 1050 / 1050 700 / 700 Balance 1627 / 1627 2208 / 2208 1430 / 1430 General: Alert, Oriented x3, Cooperative, No apparent distress HEENT: Atraumatic, PERRLA, EOMI, Normocephalic Oral: Moist Mucosa Neck: Supple, No JVD, Negative Carotid Bruits Lungs: Clear to auscultation, Normal air movement, No rhonchi, No wheeze, No rales Cardiovascular: Regular rate, Regular Rhythm, Normal S1, Normal S2, No murmurs Abdomen: Bowel Sounds Present, Soft, Non Tender, - - dressing over laparoscopic site is clean and dry. Extremities: No clubbing, No cyanosis, No edema, Capillary Refill Less than 3 Seconds Skin: No rashes, No breakdown Musculoskeletal: No Tenderness to Palpation of Joints or Extremities Lymphatic: No Cervical, Supraclavicular, or Inguinal Adenopathy Neurological: Cranial nerves II-XII grossly intact Psych/Mental Status: Normal Affect, Appropriate, Alert and oriented to time, place, person, mood and affect Laboratory Results 09/20/18 06:18: WBC 10.9, RBC 4.01 L, Hgb 11.6 L, Hct 36.7 L, MCV 91.5, MCH 28.9, MCHC 31.6 L, RDW 14.2, RDW Differential 47.6 H, Plt Count 121 L, MPV 10.7, Immature Gran % (Auto) 0.200, Neut % (Auto) 80.2 H, Lymph % (Auto) 8.7 L, [place] % (Auto) 8.5, Eos % (Auto) 2.1, Baso % (Auto) 0.3, Absolute Neuts (auto) 8.7 H, Absolute Lymphs (auto) 0.95, Total Counted Not Reportable 09/20/18 06:18: Sodium 137, Potassium 4.2, Chloride 108 H, Carbon Dioxide 19.0 L , Anion Gap 10, BUN 13, Creatinine 1.02, Estim Creat Clear Calc 71.77, Est GFR (MDRD) Af Amer 93, Est GFR (MDRD) Non-Af 77, BUN/Creatinine Ratio 12.7, Glucose 93, Calcium 7.8 L Current Medications Acetaminophen (Tylenol) 650 mg PO Q6H PRN PRN PRN Reason: Non-cardiac pain (mod-severe) Benzonatate (Tessalon Perle) 100 mg PO TID PRN PRN PRN Reason: coughing Carvedilol (Coreg) 12.5 mg PO BID [facility] Last Admin: 09/20/18 09:44 Dose: 12.5 mg Docusate Sodium (Colace) 100 mg PO BID [facility] Last Admin: 09/20/18 09:44 Dose: 100 mg Enoxaparin Sodium (Lovenox) 40 mg SC DAILY@1000 [facility] Last Admin: 09/20/18 09:46 Dose: Not Given Fluticasone Propionate (Flonase Nasal [place]) 2 spray NASAL DAILY@2200 [facility] Last Admin: 09/19/18 22:05 Dose: 2 spray Lactated Ringer's () 1,000 mls @ 100 mls/hr IV .Q10H [facility] Last Admin: 09/20/18 05:41 Dose: 100 mls/hr Lisinopril (Zestril) 20 mg PO BID [facility] Last Admin: 09/20/18 09:46 Dose: 20 mg Magnesium Hydroxide (Milk Of Magnesia) 30 ml PO DAILY PRN PRN PRN Reason: Constipation Morphine Sulfate () 2 - 4 mg IV Q3H PRN PRN PRN Reason: SEVERE PAIN (6-10/10) Last Admin: 09/17/18 22:33 Dose: 4 mg Morphine Sulfate () 2 - 4 mg IV Q3H PRN PRN PRN Reason: SEVERE PAIN (6-10/10) Last Admin: 09/19/18 20:12 Dose: 2 mg Ondansetron HCl (Zofran) 4 mg IV Q8H PRN PRN PRN Reason: NAUSEA Sodium Chloride () 5 - 15 ml IV UD PRN PRN Reason: SALINE FLUSH Last Admin: 09/19/18 20:11 Dose: 10 ml Spironolactone (Aldactone) 50 mg PO DAILY [facility] Last Admin: 09/20/18 09:44 Dose: 50 mg Throat Lozenges (Cepacol Sore Throat Lozenge) 2 lozenge MUCOUS MEM Q2H PRN PRN PRN Reason: SORE THROAT Last Admin: 09/20/18 10:03 Dose: 1 lozenge Medical Necessity - Tobacco Use Smoking Status: Never smoker Assessment/Plan All Active Problems (Last Reviewed 09/18/18 @ 14:07 by Renuka Ng PA-C) Cholelithiasis (Acute) Gallstone pancreatitis (Acute) Family history of CVA (Acute) Hemorrhagic stroke (Resolved) Syncope (Resolved) History of intracranial hemorrhage (Resolved) 1. Acute on chronic gallstone pancreatitis s/p laparoscopic cholecystectomy with intraoperative cholangiogram * today is POD 1 * has no complaitns. * pain well controlled * to start clear liquids,and advance as tolerated * IV antibiotics stopped * 2. Combined diastolic and systolic heart failure * EF of 25%., with stage III diastolic dysfunction. * on coreg, lisinopril and aldactone * 3. paroxysmal Afib: on coreg. not anticoagulated though CHADVASC score is ~ 3. 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 Hypertension: Controlled. On Coreg, lisinopril and Aldactone. DVT prophylaxis: Lovenox Code Visit Inpatient E&M: 10515 Subs Hosp L2
[2018-09-20 12:26] VITALS: BP 124/70; PULSE 70; RESP 16; TEMP 36.9; O2SAT 93
--- NOTE | 2018-09-20 13:29 | DCINST_ITS ---
Discharge Diet: Light diet - advance as tolerated Discharge Activity: Return to Normal Activity, May Not Drive - for 2-3 days or while taking narcotic pain medicataions., - - Do not drive, work heavy equipment or sign legal documents for 24 hours. May shower in (days): 1 - with the bandage in place. Additional Activity Instructions:: Pain medication may cause nausea. You should typically eat light foods as you take your pain medications. Pain medication may also cause constipation. If this is a problem for you, please discuss with your doctor. Call your doctor if your incision/area has: Continuous Slow Oozing, Sudden Increased Bleeding, Increased Pain/ Swelling, Increased Redness, Foul Smelling Discharge, Fever of 101 or Higher Call your doctor if you observe: Fever of 101 or Higher Suture Line Care: Avoid Pulling/Pushing, Avoid Pinching/Bending Additional Dressing/Incision Instructions:: Leave operative bandaids on for 2 days. When you remove dressing, leave Steri-Strips on until your follow-up appointment, or until the Steri-Strips fall off on their own. Allergies/Adverse Reactions: Allergies amlodipine Adverse Reaction (Severe, Verified 09/17/18 16:55) Swollen fingers atorvastatin [From Lipitor] Adverse Reaction (Severe, Verified 09/17/18 16:55) Myalgias Medications to take at Discharge spironolactone 25 mg tablet 50 mg PO DAILY tab 10/06/17 carvedilol 12.5 mg tablet 12.5 mg PO BID #180 tab 11/07/17 lisinopril 20 mg tablet 20 mg PO BID #180 tab 02/14/18 Primary Care Physician: Tomás Garces MD [Primary Care Provider] - Test Results: Test results from this visit will be discussed in further detail at your follow- up appointment, if applicable. Please Follow Up With: Matt Mccracken MD When: Please call to schedule 2 week follow up appointment. [phone]
--- NOTE | 2018-09-20 14:12 | DCINST_ITS ---
- Discharge Diagnoses Current Active Problems: Current Active and Chronic Problems (Last Reviewed 09/18/18 @ 14:07 by Renuka Ng PA-C) Acute on chronic pancreatitis (Chronic) Cholelithiasis (Acute) Gallstone pancreatitis (Acute) You will use the following diet at home:: Other - soft diet, advance as tolerated Your food should be the consistency of: Soft (bite-sized & easy to chew/swallow) - advance as tolerated Your liquids should be the consistency of: Regular/Thin Discharge Activity: Return to Normal Activity, May Not Drive - for 2-3 days or while taking narcotic pain medicataions., - - Do not drive, work heavy equipment or sign legal documents for 24 hours. May shower in (days): 1 - with the bandage in place. Weight Bearing Status: Weight bearing as tolerated Additional Activity Instructions:: Pain medication may cause nausea. You should typically eat light foods as you take your pain medications. Pain medication may also cause constipation. If this is a problem for you, please discuss with your doctor. Call your doctor if your incision/area has: Continuous Slow Oozing, Sudden Increased Bleeding, Increased Pain/ Swelling, Increased Redness, Foul Smelling Discharge, Fever of 101 or Higher Call your doctor if you observe: Fever of 101 or Higher Suture Line Care: Avoid Pulling/Pushing, Avoid Pinching/Bending Additional Dressing/Incision Instructions:: Leave operative bandaids on for 2 days. When you remove dressing, leave Steri-Strips on until your follow-up appointment, or until the Steri-Strips fall off on their own. Instructions: After Gallbladder Surgery, Cholecystectomy, Having Laparoscopic Cholecystectomy, Understanding Pancreatitis Allergies/Adverse Reactions: Allergies amlodipine Adverse Reaction (Severe, Verified 09/17/18 16:55) Swollen fingers atorvastatin [From Lipitor] Adverse Reaction (Severe, Verified 09/17/18 16:55) Myalgias Medications to take at Discharge spironolactone 25 mg tablet 50 mg PO DAILY tab 10/06/17 carvedilol 12.5 mg tablet 12.5 mg PO BID #180 tab 11/07/17 lisinopril 20 mg tablet 20 mg PO BID #180 tab 02/14/18 Oxycodone HCl/Acetaminophen [Percocet 5/325] 1 - 2 tablet PO Q4H PRN PRN 7 Days #30 tablet 02/13/19 The following prescriptions were given: Oxycodone HCl/Acetaminophen [Percocet 5/325] 1 - 2 tablet PO Q4H PRN PRN 7 Days #30 tablet PRN Reason: Pain Primary Care Physician: Tomás Garces MD [Primary Care Provider] - Please follow up with your Primary Care Physician in: one week Test Results: Test results from this visit will be discussed in further detail at your follow- up appointment, if applicable. Please Follow Up With: Matt Mccracken MD When: Please call to schedule 2 week follow up appointment. [phone] Proposed Discharge Date: 09/20/18
--- NOTE | 2018-09-20 14:12 | PCM.DC.SUM ---
Discharge Date and Diagnosis - Problem List Patient Problems: Active and Suspected Problems (Last Reviewed 09/18/18 @ 14:07 by Renuka Ng PA-C) Cholelithiasis (Acute) Gallstone pancreatitis (Acute) Date of Admission: 09/17/18 Date of Discharge: 09/20/18 - Primary Discharge Diagnosis Active and Suspected Problems (Last Reviewed 09/18/18 @ 14:07 by Renuka Ng PA-C) Cholelithiasis (Acute) Gallstone pancreatitis (Acute) - Secondary Discharge Diagnosis Chronic Problems (Last Reviewed 09/18/18 @ 14:07 by Renuka Ng PA-C) Acute on chronic pancreatitis (Chronic) Paroxysmal atrial fibrillation (Chronic) Non-ischemic cardiomyopathy (Chronic) Cardiomyopathy, dilated (Chronic) Chronic systolic (congestive) heart failure (Chronic) Nonischemic cardiomyopathy, suspected viral Diagnosed in 2013 Hyperlipidemia (Chronic) 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 Small amount of free fluid. No evidence of pancreatic hemorrhage, necrosis or pseudocyst formation. Electronically Signed: Sylvester Burns at 19:49 EST Tel , Service support , Abdomen Ultrasound 09/17/18 21:42 IMPRESSION: Multiple gallstones. Thickened gallbladder wall. Hepatic cysts. Electronically Signed: Jose Francisco Whitfield MD at 10:48 EST , Service support , Cholangiogram 09/19/18 15:05 general surgery- Dr Mccracken Operations: [email or web address] Procedures: None Summary of Care Provided: The patient is a 68 year old M with past medical history significant for nonischemic cardiomyopathy and later cardiomyopathy, hypertension, paroxysmal A. fib and TIA. He was admitted with a complaint of progressively worsening generalized abdominal pain which radiated to his flanks and his back of one day duration. Pain was worsened by breathing deeply. In the ED, his lipase was 17,[address] of the abdomen and pelvis were significant for acute on chronic pancreatitis. He was admitted to be managed for acute on chronic pancreatitis. Triglycerides were elevated and calcium was also within normal limits. Right upper quadrant ultrasound done was positive for gallstones and so he was managed for acute cholelithiasis and gallstone induced acute pancreatitis. He was kept n.p.o. and put on IV fluids and IV morphine for pain. General surgery was consulted and patient had laparoscopic cholecystectomy with intraoperative cholangiogram on 09/19/2018. Patient tolerated surgery well and remained stable. He was started on clear liquid diet on 09/20/2018 which he tolerated well and this was advanced as tolerated. Patient was discharged home on 09/20/2018 to follow-up with his PCP and general surgeon. [] Patient seen and examined prior to discharge . Today's postop day 1 after laparoscopic cholecystectomy with cholangiogram. He has no complaints and pain is well controlled. He denied any fever chills, palpitations or dizziness, diarrhea vomiting. Per general surgery, is to be started on clear liquid diet to advance as tolerated. Labs and vitals reviewed. Home medications reviewed and reconciled. o/e Vital Signs Height 5 ft 11 in Weight: 217 lb 13.067 oz Weight in Pounds 217.8 lbs Pulse Ox 93 Temperature 98.5 F Pulse Rate 70 Respiratory Rate 16 Blood Pressure 124/70 Blood Pressure Position Sitting General: Alert, Oriented x3, Cooperative, No apparent distress HEENT: Atraumatic, PERRLA, EOMI, Normocephalic Oral: Moist Mucosa Neck: Supple, No JVD, Negative Carotid Bruits Lungs: Clear to auscultation, Normal air movement, No rhonchi, No wheeze, No rales Cardiovascular: Regular rate, Regular Rhythm, Normal S1, Normal S2, No murmurs Abdomen: Bowel Sounds Present, Soft, Non Tender, - - dressing over laparoscopic site is clean and dry. Extremities: No clubbing, No cyanosis, No edema, Capillary Refill Less than 3 Seconds Skin: No rashes, No breakdown Musculoskeletal: No Tenderness to Palpation of Joints or Extremities Lymphatic: No Cervical, Supraclavicular, or Inguinal Adenopathy Neurological: Cranial nerves II-XII grossly intact Psych/Mental Status: Normal Affect, Appropriate, Alert and oriented to time, place, person, mood and affect Plan as discussed above. Patient Problems: Active and Suspected Problems (Last Reviewed 09/18/18 @ 14:07 by Renuka Ng PA-C) Cholelithiasis (Acute) Gallstone pancreatitis (Acute) - Physical Exam Vital Signs Temp Pulse Resp BP Pulse Ox 98.5 F 70 16 124/70 H 93 09/20/18 12:26 09/20/18 12:26 09/20/18 12:26 09/20/18 12:26 09/20/18 12:26 Oxygen Flow Rate (L/min) 2 Oxygen Delivery Method Room Air Weight: 217 lb 13.067 oz Body Mass Index (BMI) 30.4 Finger Stick Blood Glucose 83 Intake and Output for Last 24 Hours 09/18/18 09/19/18 09/20/18 23:59 23:59 23:59 Intake Total 2702 / 2702 3258 / 3258 2130 / 2130 Output Total 1075 / 1075 1050 / 1050 1050 / 1050 Balance 1627 / 1627 2208 / 2208 1080 / 1080 Laboratory Tests Past 24 Hrs 09/20/18 09/20/18 06:18 06:18 WBC 10.9 RBC 4.01 L Hgb 11.6 L Hct 36.7 L MCV 91.5 MCH 28.9 MCHC 31.6 L RDW 14.2 RDW Differential 47.6 H Plt Count 121 L MPV 10.7 Immature Gran % (Auto) 0.200 Neut % (Auto) 80.2 H Lymph % (Auto) 8.7 L [place] % (Auto) 8.5 Eos % (Auto) 2.1 Baso % (Auto) 0.3 Absolute Neuts (auto) 8.7 H Absolute Lymphs (auto) 0.95 Total Counted Not Reportable Sodium 137 Potassium 4.2 Chloride 108 H Carbon Dioxide 19.0 L Anion Gap 10 BUN 13 Creatinine 1.02 Estim Creat Clear Calc 71.77 Est GFR (MDRD) Af Amer 93 Est GFR (MDRD) Non-Af 77 BUN/Creatinine Ratio 12.7 Glucose 93 Calcium 7.8 L Discharge Diet: Light diet - advance as tolerated Discharge Activity: Return to Normal Activity, May Not Drive - for 2-3 days or while taking narcotic pain medicataions., - - Do not drive, work heavy equipment or sign legal documents for 24 hours. May shower in (days): 1 - with the bandage in place. Weight Bearing Status: Weight bearing as tolerated Additional Activity Instructions:: Pain medication may cause nausea. You should typically eat light foods as you take your pain medications. Pain medication may also cause constipation. If this is a problem for you, please discuss with your doctor. Call your doctor if your incision/area has: Continuous Slow Oozing, Sudden Increased Bleeding, Increased Pain/ Swelling, Increased Redness, Foul Smelling Discharge, Fever of 101 or Higher Call your doctor if you observe: Fever of 101 or Higher Suture Line Care: Avoid Pulling/Pushing, Avoid Pinching/Bending Additional Dressing/Incision Instructions:: Leave operative bandaids on for 2 days. When you remove dressing, leave Steri-Strips on until your follow-up appointment, or until the Steri-Strips fall off on their own. Home Medications: Medications to take at Discharge spironolactone 25 mg tablet 50 mg PO DAILY tab 10/06/17 carvedilol 12.5 mg tablet 12.5 mg PO BID #180 tab 11/07/17 lisinopril 20 mg tablet 20 mg PO BID #180 tab 02/14/18 Oxycodone HCl/Acetaminophen [Percocet 5/325] 1 - 2 tablet PO Q4H PRN PRN 7 Days #30 tablet 09/20/18 Following Prescrptions Were Given to Patient: Oxycodone HCl/Acetaminophen [Percocet 5/325] 1 - 2 tablet PO Q4H PRN PRN 7 Days #30 tablet PRN Reason: Pain Primary Care Physician: Tomás Garces MD [Primary Care Provider] - Please follow up with your Primary Care Physician in: one week Please Follow Up With: Matt Mccracken MD When: Please call to schedule 2 week follow up appointment. [phone] Patient Instructions: After Gallbladder Surgery, Cholecystectomy, Having Laparoscopic Cholecystectomy, Understanding Pancreatitis Disposition: Home Minutes spent on discharge:: 40 Patient Condition:: Stable Medical Necessity - Tobacco Use Smoking Status: Never smoker Meaningful Use Info Meaningful Use Diagnoses (Choose all that apply): None applicable Code Visit Inpatient E&M: 87532 Disch Hosp
--- NOTE | 2018-09-20 14:36 | NURSING ---
student nurse's charting reviewed for educational and learning purposes.
--- NOTE | 2018-09-22 15:02 | CASEMGMT ---
MASON ENRIQUEZ Discharge Follow-Up Phone Call. Gina:?11? Strata: 3 Discharge Date: 09-20-18 Adm Dx:?? Acute Pancreatitis. Call to pt to inquire about how?he?has been doing since being discharged from the hospital.? Pt states he's been doing pretty good. Discussed discharge instructions with pt and asked him if he has any questions. Pt states he's thankful for this RN CM calling because he's been wondering about this pain medication. Pt states he has been taking Percocet 1 tablet every 4 hours and was wondering if he has to continue to take it that often. He states he has not been having any pain for awhile. Teaching on correct use of PRN medication done and pt voices understanding. Pt stated he did read that it said as needed but he thought that meant on whether to take 1 or 2 tabs. Pt states he only has 18 tablets remaining out of the 30 filled and he was concerned he would run out soon if he would keep taking them as he has been. MASON ENRIQUEZ inquired about when his last bowel movement was. Pt states it was on Tuesday but that he has not had any since then. Pt states he is passing flatus. RN MINA instructed for pt to contact either Dr Mccracken or his PCP, Dr Garces, and to notify them that he has not had a BM since Tuesday and on how much Percocet he has taken. Pt made aware of importance of having a bowel movement and that bowel obstruction can develop if left untreated. Pt voices understanding and states he will contact them when he gets off the phone. Pt also had questions about advancing his diet and what foods he should try next. Reviewed discharge instructions with pt and reinforced importance of soft foods and to advance slowly, trying new foods in small portions to see how he tolerates them. Pt voices understanding and again voices appreciation for the follow-up phone call. Pt aware of follow-up appts with Dr Mccracken and Dr Garces and denies having any other questions or concerns. Instructed to follow-up Davina SONI RN, CM
== END 2018-09-20 16:09 | disposition home or self-care (01) | DRG 418 ==
LOC: ED 17:17 → MS3 21:04
PROVIDERS: Physician Assistant; Surgery; Admitting Provider Hospitalist; Emergency Provider Emergency Medicine; Family Provider Family Medicine; PCP Family Medicine; Visit Provider Student in an Organized Health Care Education/Training Program
PROC: 0FT44ZZ Resection of Gallbladder, Percutaneous Endoscopic Approach (ICD-10-PCS; CPT 47610; principal; 2018-09-19 13:50)
DX: K85.10 Biliary acute pancreatitis without necrosis or infection (principal); K80.10 Calculus of gallbladder with chronic cholecystitis without obstruction; I50.42 Chronic combined systolic (congestive) and diastolic (congestive) heart failure; I42.0 Dilated cardiomyopathy; K86.1 Other chronic pancreatitis; I11.0 Hypertensive heart disease with heart failure; I48.0 Paroxysmal atrial fibrillation; E78.5 Hyperlipidemia, unspecified; Z79.899 Other long term (current) drug therapy; Z86.73 Personal history of transient ischemic attack (TIA), and cerebral infarction without residual deficits
CPT/HCPCS: 36415; 74177; 74300; 76000; 76705; 80048; 80053; 80061; 80076; 80320; 81001; 83690; 85025; 88304; 93005; 99285; J7030; J7040; J7120; Q9967; A4216; G0480; J2405

== ENCOUNTER → 2019-05-21 10:06 | Outpatient (CLI) | payer MEDICARE, SELFPAY ==
[2018-10-25 08:29] VITALS: BMI 30.9
[2019-05-21 12:34] LABS: AST(SGOT) 17 U/L (15-37); Alanine Aminotransfer ALT/SGPT 20 U/L (16-61); Albumin, Serum 3.6 g/dL (3.2-5.0); Alkaline Phosphatase 55 U/L (45-117); Anion Gap 7 (5-15); BUN 25 mg/dL (7-18); BUN/Creat Ratio 21.7 RATIO (10-20); Calcium,Total 8.6 mg/dL (8.5-10.1); Chloride 112 mmol/L (98-107); Cholesterol 164 mg/dL (200); Creatinine, Serum 1.15 mg/dL (0.70-1.30); EST Glomerular Filtration Rate 67 mL/min (>60); Est Glom Filt Rate - Afr Amer 81 mL/min (>60); Globulin 3.5 g/dL (2.2-4.2); Glucose 101 mg/dL (74-106); High Density Lipoprotein 58 mg/dL; Potassium 4.4 mmol/L (3.5-5.1); Protein, Total 7.1 g/dL (6.4-8.2); Sodium Level 142 mmol/L (136-145); Triglycerides 38 mg/dL; Very Low Density Lipoprotein 8 mg/dL (5-40)
[2019-05-21 12:35] LABS: Absolute Lymphocyte Count 1.11 X10^3/uL (0.83-4.51); Basophil# 0.04 X10^3/uL; Basophil% 0.7 % (0-1); Eosinophil# 0.21 X10^3/uL; Eosinophils% 3.6 % (0-5); Hematocrit 42.5 % (40-54); Hemoglobin 13.9 g/dL (13.0-16.5); Lymphocyte # 1.11 X10^3/ul (4.0); Lymphocyte % 18.8 % (19-41); Mean Corp Hgb Conc 32.7 g/dL (32-36); Mean Corpuscular Hgb 29.5 pg (27.0-32.0); Mean Corpuscular Volume 90.2 fL (80-94); Mean Platelet Vol. 12.3 fl (6.2-12.0); Monocyte# 0.49 X10^3/uL; Monocyte% 8.3 % (0-10); NRBC Flagged by Analyzer 0 % (0-5); Neutrophil # 4.02 X10^3/uL (2.7-7.7); Neutrophil % 68.3 % (47-70); Platelet Count 140 K/mm3 (150-450); RBC Distribution Width CV 13.5 % (11.6-14.6); Red Blood Count 4.71 M/mm3 (4.6-6.2); White Blood Count 5.9 K/mm3 (4.4-11.0)
== END ==
PROVIDERS: Family Medicine; Family Provider Family Medicine; PCP Family Medicine; Visit Provider Family Medicine
DX: I10 Essential (primary) hypertension (principal); D64.9 Anemia, unspecified
CPT/HCPCS: 36415; 80053; 80061; 85025

== ENCOUNTER → 2019-08-03 07:31 | Outpatient (CLI) | payer MEDICARE, SELFPAY ==
[2019-07-02 12:11] VITALS: BMI 29.7
--- NOTE | 2019-08-03 07:34 | ECHOD_ITS ---
Reason For Study: AFib Procedure This was a 2D Doppler, Color Flow transthoracic echocardiogram. Exam performed in department. Left Ventricle Normal LV size. Mild concentric left ventricular hypertrophy. The estimated ejection fraction is 30 %. Moderately severe segmental systolic dysfunction (see wall motion). Anterior [place] : Akinetic. Infero-Basal: Akinetic. Mid-Posterior: Akinetic. The rest of the wall segments are hypokinetic. Right Ventricle Normal RV size. Normal systolic function. Atria The left atrium is moderately enlarged. Normal right atrium. Mitral Valve Normal mitral valve. Tricuspid Valve Normal tricuspid valve. Aortic Valve Normal aortic valve. Pulmonic Valve Normal pulmonic valve. Great Vessels Normal aortic root. The pulmonary artery is normal size. Normal inferior vena cava. Pericardium/Pleural No pericardial effusion. MMode/2D Measurements & Calculations LVIDd: 5.4 cm IVSd: 1.4 cm Ao root diam: 3.7 cm LVIDs: 4.5 cm LVPWd: 1.2 cm LA dimension: 4.5 cm RVDd: 4.1 cm FS: 15.6 % LAV(MOD-bp): 92.1 ml LVAd ap4: 47.7 cm2 SV(MOD-sp4): 62.6 ml LAV(MOD-bp) Indexed: 43.7 ml/m2 EDV(MOD-sp4): 200.2 ml LAV(MOD-sp2): 66.4 ml EDV(sp4-el): 214.1 ml LAV(MOD-sp4): 107.5 ml LVAs ap4: 37.3 cm2 ESV(MOD-sp4): 137.6 ml ESV(sp4-el): 141.2 ml EF(MOD-sp4): 31.3 % EF(sp4-el): 34.0 % SV(sp4-el): 72.9 ml LA A4 area: 29.2 cm2 RA A4 area: 19.0 cm2 Time Measurements MV dec time: 0.29 sec Doppler Measurements & Calculations MV E max bandar: 54.0 cm/sec Lat Peak E' Bandar: 2.5 cm/sec Med Peak E' Bandar: 3.6 cm/sec MV A max bandar: 79.0 cm/sec E/E' lat: 22.0 E/E' med: 14.9 MV E/A: 0.68 MV V2 max: 84.7 cm/sec MV P1/2t max bandar: 55.5 cm/sec Ao V2 max: 135.9 cm/sec MV max P.9 mmHg MV P1/2t: 144.2 msec Ao max P.4 mmHg MV V2 mean: 40.1 cm/sec Ao V2 mean: 85.9 cm/sec MV mean P.77 mmHg MV dec slope: 112.8 cm/sec2 Ao mean P.4 mmHg MV V2 VTI: 28.3 cm MVA(P1/2t): 1.5 cm2 Ao V2 VTI: 25.9 cm LV V1 max: 76.9 cm/sec PA V2 max: 89.6 cm/sec TR max bandar: 247.0 cm/sec LV V1 max P.4 mmHg TR max P.4 mmHg LV V1 mean P.1 mmHg LV V1 mean: 47.9 cm/sec LV V1 VTI: 16.8 cm Interpretation Summary Normal LV size. Mild concentric left ventricular hypertrophy. The estimated ejection fraction is 30 %. Moderately severe segmental systolic dysfunction (see wall motion). Compared to prior study, there is no significant change. Ordering Physician: Mario Sutton Referring Physician: Tomás Verma Performed By: Kody العراقي RCS
== END ==
PROVIDERS: Family Provider Family Medicine; PCP Family Medicine; Referring Provider Internal Medicine Cardiovascular Disease; Visit Provider Internal Medicine Cardiovascular Disease
DX: I48.0 Paroxysmal atrial fibrillation (principal)
CPT/HCPCS: 93306

== ENCOUNTER → 2019-08-07 10:15 | Outpatient (CLI) | payer MEDICARE, SELFPAY ==
[2019-07-02 12:11] VITALS: BMI 29.7
--- NOTE | 2019-08-06 17:00 | LES_PTH ---
PATIENT: SHANNAN HERRERA LOC: [facility] U#:[id number] AGE/SX: 75/M ROOM: RE08/07/[address]: Dr. 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 See comment. TOÑO:molly 08/09/19 COMMENT Correlation with clinical findings and appropriate follow up are necessary. Case has been reviewed in consultation with Dr. Campos who concurs with the above diagnosis. IDC:AM MICROSCOPIC DESCRIPTION Slides are reviewed. GROSS DESCRIPTION Received in fixative is one container labeled with the patient's name and designated skin excision. The specimen consists of an irregular fragment of mishra excised skin measuring 0.4 x 0.3 x 0.3 cm. The specimen is inked, bisected and totally submitted in one cassette. / AM:molly 08/07/19 TC:0 CPT: 57204
== END ==
PROVIDERS: Family Provider Family Medicine; PCP Family Medicine; Referring Provider Family Medicine; Visit Provider Family Medicine
DX: D04.62 Carcinoma in situ of skin of left upper limb, including shoulder (principal)
CPT/HCPCS: 88305

== ENCOUNTER → 2019-09-13 | Outpatient (CLI) | payer MEDICARE, SELFPAY ==
[2019-07-02 12:11] VITALS: BMI 29.7
--- NOTE | 2019-09-13 | LES_PTH ---
PATIENT: SHANNAN HERRERA LOC: [facility] U#:[id number] AGE/SX: 69/M ROOM: RE09/13/[address]: Dr. Tomás Verma MD : 1950 BED: DIS: 09/13/2019 SPEC #: [id number] RECD: 09/13/19 18:26 STATUS: LU MAGDA #: [id number] SUDHA: 09/13/19 00:[address]: Tomás Verma DEPT: SURGICAL PATHOLOGY RECD BY: Samina Gonzalez Tissues: Skin of wrist and hand Procedures: Surgery Specimen Level IV HEADER OPERATION: Right wrist shave biopsy PRE-OP DIAGNOSIS: Right wrist lesion TISSUE SUBMITTED: Right wrist lesion MICROSCOPIC DIAGNOSIS Skin lesion of right wrist, shave biopsy: Hyperkeratosis and mild acanthosis. Minimal dermal fibrosis. No evidence of malignancy. AM:molly 09/17/19 COMMENT Clinical correlation is necessary. MICROSCOPIC DESCRIPTION Slides are reviewed. GROSS DESCRIPTION Received in fixative is one container labeled with the patient's name and designated right wrist lesion. The specimen consists of light mishra soft tissue with possible attached skin measuring 5 mm in diameter and 0.2 cm in thickness. The specimen is submitted in its entirety in one cassettes. / AM:molly 09/14/19 TC:5 CPT: 40603
== END | disposition home or self-care (01) ==
LOC: LABSPEC 09-14 08:48
PROVIDERS: PCP Family Medicine; Referring Provider Family Medicine; Visit Provider Family Medicine
DX: L98.9 Disorder of the skin and subcutaneous tissue, unspecified (principal)
CPT/HCPCS: 88305

== ENCOUNTER → 2020-03-06 08:42 | Outpatient (CLI) | payer MEDICARE, SELFPAY ==
[2020-01-09 08:53] VITALS: BMI 30.4
[2020-03-06 10:28] LABS: Anion Gap 5 (5-15); BUN 34 mg/dL (7-18); BUN/Creat Ratio 21.7 RATIO (10-20); Calcium,Total 8.9 mg/dL (8.5-10.1); Chloride 107 mmol/L (98-107); Creatinine, Serum 1.57 mg/dL (0.70-1.30); EST Glomerular Filtration Rate 46 mL/min (>60); Est Glom Filt Rate - Afr Amer 56 mL/min (>60); Glucose 110 mg/dL (74-106); Potassium 4.6 mmol/L (3.5-5.1); Sodium Level 136 mmol/L (136-145)
== END ==
PROVIDERS: PCP Family Medicine; Referring Provider Family Medicine; Visit Provider Family Medicine
DX: I10 Essential (primary) hypertension (principal)
CPT/HCPCS: 36415; 80048

== ENCOUNTER → 2020-06-17 09:13 | Outpatient (CLI) | payer MEDICARE, SELFPAY ==
[2020-01-09 08:53] VITALS: BMI 30.4
[2020-06-17 10:06] LABS: AST(SGOT) 21 U/L (15-37); Alanine Aminotransfer ALT/SGPT 28 U/L (16-61); Albumin, Serum 3.7 g/dL (3.2-5.0); Alkaline Phosphatase 59 U/L (45-117); Anion Gap 3 (5-15); BUN 24 mg/dL (7-18); BUN/Creat Ratio 19.4 RATIO (10-20); Calcium,Total 9.1 mg/dL (8.5-10.1); Chloride 108 mmol/L (98-107); Cholesterol 180 mg/dL (200); Creatinine, Serum 1.24 mg/dL (0.70-1.30); EST Glomerular Filtration Rate 61 mL/min (>60); Est Glom Filt Rate - Afr Amer 74 mL/min (>60); Globulin 3.6 g/dL (2.2-4.2); Glucose 100 mg/dL (74-106); High Density Lipoprotein 65 mg/dL; PSA,Total - Annual Screen 0.68 ng/mL (0.00-4.00); Potassium 4.7 mmol/L (3.5-5.1); Protein, Total 7.3 g/dL (6.4-8.2); Sodium Level 138 mmol/L (136-145); Triglycerides 47 mg/dL; Very Low Density Lipoprotein 9 mg/dL (5-40)
== END ==
PROVIDERS: PCP Family Medicine; Referring Provider Family Medicine; Visit Provider Family Medicine
DX: I10 Essential (primary) hypertension (principal); Z12.5 Encounter for screening for malignant neoplasm of prostate
CPT/HCPCS: 36415; 80053; 80061; 84153; G0103

== ENCOUNTER → 2020-06-26 16:02 | Outpatient (CLI) | payer MEDICARE, SELFPAY ==
[2020-01-09 08:53] VITALS: BMI 30.4
--- NOTE | 2020-06-26 16:04 | CT_ITS ---
CT of the left lower extremity without contrast INDICATION: Preop knee arthroplasty, December protocol. TECHNIQUE: Multiple thin section axial CT images of the left lower extremity were obtained through the hip joint, knee joint, and ankle joint and filmed in bone windows. Dose limiting techniques were utilized. FINDINGS: No abnormal soft tissue mass, lymphadenopathy, fluid collection. Some prominent varicose veins. No acute fracture or dislocation. No lytic or blastic lesions. Next Examination the hip joint demonstrates no severe arthrosis. Next Examination of the knee joint demonstrates severe arthrosis with a [id number] appearance, prominent osteophyte formation, and lateral translation of the tibia and a moderate joint effusion with multiple calcified bodies. Next Examination the ankle joint demonstrates no severe arthrosis. There is, chronic corticated avulsion fracture the medial malleolus the tibia. IMPRESSION: Severe knee arthrosis of preop planning for arthroplasty. Electronically Signed: Toni Chavarria MD at 16:45 EST Tel , Service support , CT/Extremity Lower without Contra
== END ==
PROVIDERS: PCP Family Medicine; Referring Provider Specialist; Visit Provider Specialist
DX: M21.162 Varus deformity, not elsewhere classified, left knee (principal)
CPT/HCPCS: 73700

== ENCOUNTER 2020-07-16 15:00 | Observation (INO) | payer MEDICARE, SELFPAY ==
[2020-01-09 08:53] VITALS: BMI 30.4
--- NOTE | 2020-06-27 07:31 | HP.PCM_ITS ---
History and Physical History and Physical [facility] Patient Name: Narciso Garces : 1950 From: ZAYRA BARTH PA-C DATE OF SURGERY: 07/16/2020 SCHEDULED PROCEDURE: left total knee arthroplasty HISTORY OF PRESENT ILLNESS: Preoperative history and physical exam was performed on June 26, 2020. This is a 70-year-old male who has been having ongoing pain in bilateral knees for several years. His left is worse than his right. Patient has had history of knee arthroscopy in 2003 on the right knee with Dr. Lee and 2 prior arthroscopies of the left knee. Patient's pain is been intermittent, stabbing, and sore. Pain can reach 5/10 with activities. Pain is increased with going up and down stairs, walking. Patient has difficult time with activities of daily living including leisure activities such as sports, golf, basketball. He has stiffness in both knees. Pain is primarily over the medial joint line bilaterally. Patient has stumbled due to his knee pain. Patient has attempted rest, elevation with no relief in symptoms. After failing conservative measures and discussing treatment options with Dr. Sylvester Weber, the patient would like to proceed with a left total knee arthroplasty. Patient does have medical history pertinent for hypertension, congestive heart failure, dilated cardiomyopathy, previous strokes in 2014 in 2016. We are obtaining surgical clearance from the primary care physician Dr. Verma and logger Dr. Sutton. Patient states his previous stroke did have an effect on his left side. He does feel weaker on his left side. He denies any recent chest pain, shortness of breath, fevers chills, or recent infections. REVIEW OF SYSTEMS: ROS: Const: Denies change in appetite, fever and weight change. CV: Denies chest pain, heart murmur and irregular heartbeat. Resp: Denies cough, pneumonia, shortness of breath, tuberculosis and wheezing. GI: Reports diarrhea, but denies constipation, heartburn, nausea, rectal itching, bloody stools and vomiting. : Denies incontinence. Musculo: Reports leg swelling, trouble walking and weakness, but denies pain. Skin: Denies Raynaud's, history of shingles and tattoo. Neuro: Denies ambulatory dysfunction, dizziness, numbness/tingling and tremor. Psych: Denies anxiety, insomnia and stress. Samir/Lymph: Denies anemia, bleeding/bruising tendency and past transfusion. Reviewed, no changes. PAST MEDICAL HISTORY: Advance Care Plan: Other Directive, LIVING WILL Effective Date: 05/26/2020 Other Directive, POA Effective Date: 05/26/2020 PMH: Medical Problems: Arthritis, Cancer, Congestive Heart Failure (CHF), High Blood Pressure, Stroke Accidents: Fracture - LEFT FOOT Sports Related Injury - (1970) LEFT KNEE TORN ACL, DR REYES @[facility] Other - (1970) LEFT KNEE CLEAN OUT DR.JAMES NUNEZ RT Knee-Meniscus - (2003) DR. AMANDO LEE, @[facility] Surgical Hx: LT ACL Repair - (1970) Dr. Reyes @ [facility] LT Knee Arthroscopy - (1995) Dr. John Ibrahim RT Knee Meniscus Tear - (1999) Dr. Amando Lee @ [facility] Gallbladder - (2018) @ DR. MARCY WISEMAN Anesthesia Complications: None Assistive Devices: Glasses Reviewed and updated. 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 Personal Habits: Cigarette Use: Never Smoked Cigarettes.Smokeless Tobacco: Never Used Smokeless Tobacco.E-Cigarette Use: Never used.Alcohol: Denies use.Drug Use: Denies Use.Enjoy Exercising: Exercises 1-3 X/Week. Reviewed, no changes. VITALS: Ht: 70 Wt: 218lb Wt k.885 BMI: 31.3 BP: 168/96 Pulse: 63 Resp: 16 T: 97.2 T: 36.2C Pain Level: 3 ALLERGIES: Amlodipine - fingers swell MEDICATIONS: Carvedilol 12.5 mg 2 po qd, Lisinopril 20 mg 2 po qd, Spironolactone 25 mg 2 po qd PRE-OP EXAM: General appearance:NORMAL Other: Eyes: Conjunctivae and lids: NORMAL Pupils: ERR Ears, Nose, Mouth, and Throat: NORMAL Other: Inspection of lips, teeth and gums: NORMAL Other: Neck: Examination of neck: no masses noted. Respiratory: Assessment of respiratory effort: NORMAL Other: Auscultation of lungs: clear to auscultation no wheezes, rhonchi or rales. Cardiovascular: Auscultation of heart: regular rate and rhythm, no murmurs, gallops or rubs. Exam of carotid arteries: NORMAL Other: Gastrointestinal: Exam of abdomen: soft, nontender, nondistended bowel sounds present. PHYSICAL EXAMINATION: Patient walks with an antalgic gait. Patient's left knee is cool to touch without erythema or signs of infection. Patient does have 14 va babs alignment with minimal correction. He does have increased translation with anterior drawer exam with soft endpoint. Range of motion: 24 to 107 flexion Patient's right knee range of motion: 10 to 113 flexion. He does have positive atrophy in the left quadriceps. Sensation intact to light touch. IMAGING STUDIES: X-rays of the left knee reveal varus alignment with medial joint space narrowing, subchondral sclerosis, bony erosions of the medial and lateral tibial plateau as well as lateral subluxation of the tibia and osteophyte formation consistent with severe stage IV osteoarthritis. Patient also has large free bodies in the patellofemoral compartment. IMPRESSION: 1. Severe left knee osteoarthritis 2. Severe right knee osteoarthritis 3. Hypertension 4. Embolic stroke November 2015 and hemorrhagic stroke February 2014 5. Dilated cardiomyopathy 6. Congestive heart failure PLAN: Dr. Sylvester Weber did discuss and review with the patient all treatment options including surgical versus nonsurgical options. Patient does wish to proceed with the above-stated procedure. Potential risks, benefits, and complications of the procedure were discussed in detail including but not limited to , infection, nerve and blood vessel damage, persistent pain, numbness, tingling, paresthesias, blood clot, pulmonary embolism, and requirement for possible further surgery. The patient expressed full understanding and has no further questions for the doctor. Patient does agree to proceed with the above-stated procedure and has signed the surgery consent form. We discussed the current risks associated with COVID 19. This does include the risk of exposure while in the hospital. Patient was reassured local hospitals have low infection rates and are taking all necessary precautions to avoid exposure to patients. In addition, we discussed strategies that can be used to help limit exposure including those that limit the patient's time in the hospital. Also using strategies to limit the patient's need for continued inpatient services after being discharged from the hospital. Patient was notified that we will need to comply with any screening or testing the hospital wishes to perform or that surgery may be delayed for any positive results. This dictation was created using voice recognition software. Phonetic and/or grammatical errors may exist. ___ I have re-examined the patient. There are no clinical changes since date of exam. ___ See progress notes for changes. ___ Dictated on admission Date: Time: Signature:
--- NOTE | 2020-07-08 09:08 | EKG12_ITS ---
Test Reason : PRE OP Blood Pressure : / mmHG Vent. Rate : 066 BPM Atrial Rate : 066 BPM P-R Int : 146 ms QRS Dur : 102 ms QT Int : 412 ms P-R-T Axes : -06 -40 057 degrees QTc Int : 431 ms Normal sinus rhythm Left axis deviation Inferior infarct , age undetermined Anterior infarct , age undetermined Abnormal ECG Confirmed by CHAPARRO STEPHENS, RADHA ([id number]), research editor TASHA FULLER ([id number]) on 07/09/2020 9:42:50 AM Referred By: Sylvester Weber Confirmed By:RADHA MAYFIELD MD
[2020-07-08 09:33] LABS: Absolute Neutrophil Count 4.2 X10^3/uL (2.0-7.7); Basophil# 0.05 X10^3/uL; Basophil% 0.8 % (0-1); Eosinophil# 0.19 X10^3/uL; Eosinophils% 3.2 % (0-5); Hematocrit 43.5 % (40-54); Hemoglobin 14.4 g/dL (13.0-16.5); Lymphocyte % 18.3 % (19-41); Mean Corp Hgb Conc 33.1 g/dL (32-36); Mean Corpuscular Hgb 30.4 pg (27.0-32.0); Mean Platelet Vol. 11.3 fl (6.2-12.0); Monocyte# 0.52 X10^3/uL; Monocyte% 8.6 % (0-10); NRBC Flagged by Analyzer 0 % (0-5); Neutrophil # 4.15 X10^3/uL (2.7-7.7); Neutrophil % 68.9 % (47-70); Platelet Count 149 K/mm3 (150-450); RBC Distribution Width CV 13.2 % (11.6-14.6); RBC Distribution Width SD 44.9 fl (35.1-43.9); Red Blood Count 4.73 M/mm3 (4.6-6.2)
[2020-07-08 09:59] LABS: Anion Gap 4 (5-15); BUN 27 mg/dL (7-18); BUN/Creat Ratio 22.7 RATIO (10-20); Chloride 109 mmol/L (98-107); Creatinine, Serum 1.19 mg/dL (0.70-1.30); EST Glomerular Filtration Rate 64 mL/min (>60); Est Glom Filt Rate - Afr Amer 77 mL/min (>60); Glucose 106 mg/dL (74-106); Potassium 4.5 mmol/L (3.5-5.1); Sodium Level 140 mmol/L (136-145)
[2020-07-15 15:28] LABS: Albumin, Serum 3.9 g/dL (3.2-5.0)
[2020-07-16] VITALS (11 sets, daily range): BP systolic 102–161; BP diastolic 73–104; PULSE 71–85; RESP 14–24; TEMP 36.1–36.8; O2SAT 96–100; BMI 31.0
[2020-07-16] MEDS: Acetaminophen 500 MG Tablet 1000 MG PO ×2 (10:42→22:15)
[2020-07-16] MEDS: Gabapentin 600 MG Tablet PO (10:42)
[2020-07-16] MEDS: Lactated Ringers 1,000 ML 75 ML IV ×2 (10:45→13:15)
[2020-07-16 11:21] LABS: Bedside Glucose 116 mg/dL (70-110)
[2020-07-16] MEDS: Cefazolin 2 GM in 0.9% Normal Saline 100 ML IV ×2 (12:03→14:47)
[2020-07-16] MEDS: dexAMETHasone 10 MG/ML Vial IV (12:18)
--- NOTE | 2020-07-16 15:02 | PCM.OPRPT ---
Report of Operation Date of Procedure: 07/16/20 Pre-Operative Diagnosis: Left knee severe osteoarthritis with contractures Post-Operative Diagnosis: Left knee severe osteoarthritis with contractures. Left knee lateral femoral condyle fracture Surgery/Procedure Performed:: Left robotic assisted total knee replacement. Left knee ORIF distal femoral condyle lateral Description of Surgical Findings:: Stable knee with good patella tracking. Patient did sustain a lateral femoral condyle fracture during implantation due to retraction. This was fixed with 3 7.3 mm cannulated screws. test and research reactor operator: Darshan Kevin Type of Anesthesia:: Spinal Anesthesiologist: Luis Tapia Special Medications: 2 g Ancef, 1 g TXA at incision, 1 g TXA closure, 10 mg Decadron, joint cocktail (5 mg Duramorph, 30 mL of 0.5% Ropivicaine, 1000 units of epinephrine, 30 mg of Toradol). Ancef redosed at 2 hours after incision time Specimen's removed: Bony cuts Estimated Blood Loss (mL): 200 Fluids Replaced: 1700 mL crystalloid Description of Procedure: Implants used: 1. Hardaway size 8 triathlon total stabilized distal femoral component with 50 x 15 mm cemented stem 2. Al size 8 press-fit tritanium tibial baseplate 3. Hardaway X3 9 mm PS polyethylene 4. Hardaway X3 35 asymmetric patella Brief history operative indications: 70-year-old M with history of left knee osteoarthritis with radiographic findings with loss of joint space, osteophyte formation and subchondral sclerosis. Failed conservative measures as mentioned in the H&P. Discussion of total knee arthroplasty as well as risk and benefits were discussed the patient including but not limited to blood loss, DVTs, PEs, neurovascular damage, general risk of anesthesia including loss of life, and stiffness or instability were discussed with patient. Patient demonstrated understanding and was able to sign informed consent. Procedure: On the date of procedure patient's left lower extremity was marked in the preoperative area. The patient was then taken back to the operating room where the patient was placed on the table in the supine position. All bony prominences were identified a well-padded. Anesthesia assumed control of the C-spine and airway and remained controlled throughout the remainder of the procedure. A tourniquet was placed on the left upper thigh and the leg was prepped in a sterile fashion. The surgeon then scrubbed at this time .Upon reentering the room left lower extremity was draped in a standard orthopedic fashion. A timeout was then called and everyone agreed upon the side, the site, the procedure to be performed, patient's identity and antibiotics given. Esmarch bandage was used to exsanguinate the extremity and the tourniquet was placed up to 250 mmHg with the knee in flexion. A midline skin incision was made and sharp dissection was taken down through skin subcutaneous tissue and fat. The standard medial parapatellar incision was made and the patella was subluxed laterally. An Appropriate deep MCL release was done and the fat pad was resected. Our attention was then directed to the patella. The patella was everted and a flat resection was made. The knee was then flexed up in 2 femoral pins were placed inside the incision and 2 tibial pins were placed outside the incision in the medial tibia bicortically. Once this was completed the 2 checkpoints in the femur and tibia were placed. Knee was then flexed up and the bony landmarks were registered. Once this was completed knee was taken through range of motion and manually stressed allowing us to a plan for an appropriate tibial cut. The robotic arm was brought into the field sterilely and checkpoint and saw were registered. Based on the patient's deformity the tibial cut was made in 3 degrees varus. At this time the tensioner was then placed in the joint and ligament tension was checked at 90 degrees and full extension. Based on the patient's ligamentous tension appropriate adjustments were made to the operative plan and ligament releases were done. Once we were happy with our operative plan with balanced flexion and extension gaps our attention was directed to the femur. The robot was brought into the field sterilely and registered. Posterior condylar cuts, anterior chamfer cuts and anterior cuts were appropriately made for a size 8 femur. When these were completed the saws were switched out in the distal femoral and posterior chamfer cuts were made. Protecting the soft tissue throughout this time. A size 8 tibial base plate was selected. the knee was flexed to 90 degrees and the soft tissues and posterior osteophytes were removed from the joint. 40 cc of the periarticular injection was injected into the posterior medial corner of the joint. At this time the box cut was made using the box cutting guide The appropriate trials were then placed on the femur and tibia. A trial polyethylene was trialed to ensure proper balancing and stability of the knee. The appropriate tibial internal rotation was then marked with a bovie. Our attention was then directed to the patella. The lug holes were drilled and the patella trial was placed. Patellar tracking was checked and deemed appropriate. Once we were happy lug holes were drilled for the femur and trial components were removed. the tibia was subluxed and pinned into place and the keel was punched and drilled appropriately. Final components were verified and opened, and cement was mixed in a vacuum. [employer] cement was used. The wound was copiously irrigated with normal saline. When the cement was ready we began retracting the femur out of the way in order to implant the tibia. The tibia exposure was difficult. In retracting the femur to get to the tibia the lateral femoral condyle was fractured. With the femoral condyle out of the way the press-fit tibial implant was in planted in place. This was reduced and three 7.3 mm cannulated cancellous screws were used to fix the condyle. In doing this we realized we would not be able to press-fit the femoral component and we also wanted to stem it. The appropriate box transition was made and a [employer] reamer was used to ream the distal femur canal. Once this was done we opened up the trials for the TS implants. We trialed the size 8 with the appropriate stem. This gave us a good fit. Cement restrictor was placed. We then mixed cement once more and then pressurized the canal and cemented the distal femur in place. Excess cement was removed. Knee was placed in extension. Patella was cemented. The trial poly component was placed and the knee was placed in full extension. All excess cement was removed in the process. Once the cement had cured the tracking, alignment and balance were verified and a size 9 mm PS polyethylene component was placed. Once the final components were placed an Irrisept lavage was performed and the wound was copiously irrigated with normal saline solution and the periarticular injection was given. The wound was closed in a layer jackson fashion using #1 vicryl interrupted sutures for the arthrotomy, 2-0 interrupted Vicryl suture for the subcuticular layer and irene for final skin closure. A sterile compressive dressing was then placed. The patient was then awakened from anesthesia, transferred to the [place] and transferred to the PACU for recovery. Post op plan DVT ppx: ASA 81mg BID, thigh high compression stockings Follow up: in office in 2 weeks for wound check PT: to start POD #0 at hospital, outpatient PT should be arranged. Patient will be made toe-touch weightbearing for 2 weeks followed by 4 weeks of 50% weightbearing. Range of motion without limitations. My physician diversional therapist's assistant was a vital part of this case. He was important in appropriate retraction during the case, and protection of soft tissues during bony cuts. His intimate knowledge of the case and my steps aided in safe and expedient completion of the procedure as well as appropriate position of the leg during the case. He was also vital in assisting with closure under my direct supervision. Due to the complexity of this case robotic arm was used to assist in the surgery to improve accuracy and clinical outcomes. - Complications Lateral distal femoral condyle fracture - Admit VTE Documentation VTE Present on Admission: Yes VTE Mechan Device Prophylaxis: Thigh High MEHDI aTn VTE Pharm Prophylaxis ordered?: Yes
--- NOTE | 2020-07-16 15:55 | RAD_ITS ---
STUDY: X-RAY - LEFT KNEE REASON FOR EXAM: Male, 70 years old. post op TECHNIQUE: 2 view(s) of the knee. COMPARISON: None. FINDINGS: Normal visualized distal femur. Normal visualized proximal tibia and fibula. Normal proximal tibiofibular articulation. Status post recent total knee arthroplasty with skin irene and subcutaneous emphysema.. The soft tissue structures are unremarkable. RAD/Knee 1 or 2 Views IMPRESSION: Status post recent total knee arthroplasty. Electronically Signed: Toni Chavarria MD at 16:14 EST Tel , Service support ,
[2020-07-16] MEDS: Lactated Ringers 1,000 ML 125 ML IV ×2 (16:27→18:09)
[2020-07-16] MEDS: Ketorolac 15 MG/ML Vial IV (18:09)
[2020-07-16] MEDS: Ensure Surgery 237 ML LIQUID PO (18:09)
[2020-07-16] MEDS: Ondansetron 4 MG/2 ML Vial IV (20:19)
[2020-07-16] MEDS: oxyCODONE 5 MG Tablet PO (22:15)
[2020-07-16] MEDS: Lisinopril 20 MG Tablet PO (22:16)
[2020-07-16] MEDS: Senna/Docusate Sodium 1 Tablet 2 TABLET PO (22:16)
[2020-07-16] MEDS: Cefazolin 1 GM/50 ML BAG IV (22:16)
[2020-07-16] MEDS: Aspirin 81 MG TAB.CHEW PO (22:16)
[2020-07-16] MEDS: Carvedilol 12.5 MG Tablet PO (22:16)
[2020-07-17 02:20] VITALS: BP 121/78; PULSE 77; RESP 18; TEMP 36.6; O2SAT 96
[2020-07-17] MEDS: Ketorolac 15 MG/ML Vial IV (02:46)
[2020-07-17] MEDS: oxyCODONE 5 MG Tablet PO ×3 (05:37→21:14)
[2020-07-17] MEDS: Acetaminophen 500 MG Tablet 1000 MG PO ×3 (05:37→21:09)
[2020-07-17] MEDS: Cefazolin 1 GM/50 ML BAG IV (05:38)
[2020-07-17 05:47] VITALS: BP 132/84; PULSE 89; RESP 16; TEMP 36.6; O2SAT 96
[2020-07-17 07:50] LABS: Hematocrit 34.1 % (40-54); Mean Corp Hgb Conc 32.3 g/dL (32-36); Mean Corpuscular Hgb 29.6 pg (27.0-32.0); Mean Corpuscular Volume 91.9 fL (80-94); Mean Platelet Vol. 11.6 fl (6.2-12.0); Platelet Count 129 K/mm3 (150-450); RBC Distribution Width CV 13.3 % (11.6-14.6); RBC Distribution Width SD 44.5 fl (35.1-43.9); Red Blood Count 3.71 M/mm3 (4.6-6.2); White Blood Count 13.7 K/mm3 (4.4-11.0)
[2020-07-17] MEDS: Ensure Surgery 237 ML LIQUID PO ×3 (08:06→16:05)
[2020-07-17 08:08] VITALS: BP 116/72; PULSE 82; RESP 18; TEMP 37.5; O2SAT 100
[2020-07-17 08:11] VITALS: PULSE 82
[2020-07-17 08:16] LABS: Anion Gap 7 (5-15); BUN 31 mg/dL (7-18); BUN/Creat Ratio 22.5 RATIO (10-20); Calcium,Total 8.1 mg/dL (8.5-10.1); Chloride 107 mmol/L (98-107); Creatinine, Serum 1.38 mg/dL (0.70-1.30); EST Glomerular Filtration Rate 54 mL/min (>60); Est Glom Filt Rate - Afr Amer 65 mL/min (>60); Estimated Creatinine Clearance 49.96 ml/min; Glucose 154 mg/dL (74-106); Potassium 4.6 mmol/L (3.5-5.1); Sodium Level 137 mmol/L (136-145)
--- NOTE | 2020-07-17 09:22 | PN.ORTHO_ITS ---
Subjective: The patient was sitting in bedside chair upon examination. Patient denies any chest pain, shortness of breath, dizziness, lightheadedness, nausea or vomiting, or calf pain. Pain is controlled on medications. No adverse overnight events. Patient did have some nausea and dizziness yesterday but is much better today. During surgery patient sustained a lateral femoral condyle fracture which did require ORIF. His weightbearing status has been affected. He is currently toe- touch weightbearing on the left lower extremity. He has not been seen by physical therapy at this time. Discharge will be determined depending upon how patient can function and if he is able to go home safely versus rehab facility. Objective: Vital signs stable and afebrile. Patient is able to plantarflex and dorsiflex actively. Sensation is intact to light touch to saphenous, sural, superficial and deep peroneal, and tibial distribution. Dressing has mild drainage over the distal one third of the main dressing with remaining dressing clean dry and intact. Mild discharge at the distal pin site dressing and proximal Negative Homans bilaterally, negative signs and symptoms of DVT. - Physical Exam Vitals/I&O's: Vital Signs Temp Pulse Resp BP Pulse Ox 99.5 F H 82 18 116/72 100 07/17/20 08:08 07/17/20 08:11 07/17/20 08:08 07/17/20 08:08 07/17/20 08:08 Oxygen Flow Rate (L/min) 6 Oxygen Delivery Method Room Air Weight: 98.1 kg Body Mass Index (BMI) 31.0 Finger Stick Blood Glucose 83 Intake and Output for Last 24 Hours 07/15/20 07/16/20 07/17/20 23:59 23:59 23:59 Intake Total 3223.08 / 3723.08 1435.42 / 1435.42 Output Total 1000 / 1000 Balance 3223.08 / 3023.08 435.42 / 435.42 General: Alert, Oriented x3, Cooperative, No apparent distress Microbiology Past 72 Hours 07/15/20 08:50 Interface Orders SARS-CoV-2 Antigen (Rapid) - Final Laboratory Results 07/16/20 11:15: POC Glucose 116 H 07/17/20 07:20: WBC 13.7 H, RBC 3.71 L, Hgb 11.0 L, Hct 34.1 L, MCV 91.9, MCH 29.6, MCHC 32.3, RDW Std Deviation 44.5 H, RDW Coeff of June 13.3, Plt Count 129 L, MPV 11.6 07/17/20 07:20: Sodium 137, Potassium 4.6, Chloride 107, Carbon Dioxide 23.0, Anion Gap 7, BUN 31 H, Creatinine 1.38 H, Estim Creat Clear Calc 49.96, Est GFR (MDRD) Af Amer 65, Est GFR (MDRD) Non-Af 54 L, BUN/Creatinine Ratio 22.5 H, Glucose 154 H, Calcium 8.1 L Current Medications Acetaminophen (Acetaminophen 500 Mg Tablet) 1,000 mg PO Q8 [facility] Last Admin: 07/17/20 05:37 Dose: 1,000 mg Documented by: Aspirin (Aspirin 81 Mg Tab.Chew) 81 mg PO BID [facility] Last Admin: 07/16/20 22:16 Dose: 81 mg Documented by: Carvedilol (Carvedilol 12.5 Mg Tablet) 12.5 mg PO BID [facility] Last Admin: 07/16/20 22:16 Dose: 12.5 mg Documented by: Enteral Nutritional Formula (Ensure Surgery 237 Ml Liquid) 237 ml PO TIDCM [facility] Last Admin: 07/17/20 08:06 Dose: 237 ml Documented by: Famotidine (Famotidine 20 Mg Tablet) 20 mg PO DAILY [facility] Ketorolac Tromethamine (Ketorolac 15 Mg/Ml Vial) 15 mg IV Q6H PRN PRN PRN Reason: Pain Score 1-5 Stop: 07/18/20 15:01 Last Admin: 07/17/20 02:46 Dose: 15 mg Documented by: Lisinopril (Lisinopril 20 Mg Tablet) 20 mg PO BID [facility] Last Admin: 07/16/20 22:16 Dose: 20 mg Documented by: Meloxicam ([facility]am 7.5 Mg Tablet) [facility] Morphine Sulfate (Morphine 2 Mg/Ml Syringe) 2 - 4 mg IV Q2H PRN PRN PRN Reason: Pain Score 6-10 Ondansetron HCl (Ondansetron 4 Mg/2 Ml Vial) 4 mg IV Q8H PRN PRN PRN Reason: NAUSEA Last Admin: 07/16/20 20:19 Dose: 4 mg Documented by: Oxycodone HCl (Oxycodone 5 Mg Tablet) 5 - 10 mg PO Q4H PRN PRN PRN Reason: Pain Score 4-10 Last Admin: 07/17/20 05:37 Dose: 5 mg Documented by: Promethazine HCl (Promethazine 25 Mg/Ml Syringe) 12.5 mg IM Q6H PRN PRN; Protocol PRN Reason: NAUSEA/VOMITING Senna/Docusate Sodium (Senna/Docusate Sodium 1 Tablet) 2 tablet PO BID [facility] Last Admin: 07/16/20 22:16 Dose: 2 tablet Documented by: Sodium Chloride (0.9% Nacl Peripheral Flush Adult/Peds) 5 - 15 ml IV UD PRN PRN Reason: SALINE FLUSH Sodium Chloride (0.9% Saline Lock 10 Ml Syringe) 10 - 40 ml IV UD PRN PRN Reason: SALINE FLUSH Spironolactone (Spironolactone 50 Mg Tablet) 50 mg PO DAILY [facility] Medical Necessity - Tobacco Use Smoking Status: Never smoker Tobacco Use: Non-smoker Assessment/Plan All Active Problems (Last Reviewed 01/09/20 @ 10:15 by Kristel CHEEK, PA) Mural thrombus of heart (Resolved) Hemorrhagic stroke (Resolved 10/2015) History of intracranial hemorrhage (Resolved) 1. S/P left total knee replacement with open reduction internal fixation distal femoral condyle laterally POD #1 2. Continue Pain Medications: Tylenol, oxycodone 3. DVT Prophylaxis: Take 81 mg aspirin twice daily for 4 weeks postoperatively for DVT prophylaxis 4. PT/OT: Patient will be toe-touch weightbearing for 2 weeks postoperatively followed by 4 weeks of 50% weightbearing. Plan will be for weightbearing as tolerated at 6-week follow-up. No range of motion limitations. 5. H & H: 11.0/34.1, asymptomatic. Postoperative anemia secondary to acute blood loss without intraoperative complications 6. Reactive leukocytosis: Currently 13.7, afebrile. Patient did receive Decadron intraoperatively 7. Encouraged Incentive Spirometry 8. Disposition: Due to patient's limitations with weightbearing he will need an additional stay so we can evaluate patient with formal physical therapy to help determine discharge planning. If patient can safely go home with the limitations possible discharge tomorrow. If patient requires additional assistance may need to consider rehab facility temporarily. Physical therapy will assess patient and case management is involved with postoperative discharge planning.
[2020-07-17] MEDS: Carvedilol 12.5 MG Tablet PO ×2 (10:44→21:09)
[2020-07-17] MEDS: Spironolactone 50 MG Tablet PO (10:44)
[2020-07-17] MEDS: Aspirin 81 MG TAB.CHEW PO ×2 (10:44→21:09)
[2020-07-17] MEDS: Famotidine 20 MG Tablet PO (10:44)
[2020-07-17] MEDS: Lisinopril 20 MG Tablet PO ×2 (10:44→21:09)
[2020-07-17] MEDS: Senna/Docusate Sodium 1 Tablet 2 TABLET PO ×2 (10:44→21:09)
--- NOTE | 2020-07-17 11:20 | CASEMGMT ---
MASON ENRIQUEZ Face to Face with patient for initial transition planning/care coordination assessment. RN CM introduced self and role at [facility]. Patient sitting in chair, alert and oriented. Patient willing to participate in assessment and is able to answer all questions appropriately. Care providers, pharmacy, and demographics verified. Patient wishes to discharge home and is setup with [facility] for outpatient therapy. Patient states he has no further needs or concerns at this time. CM to follow for discharge planning needs that may arise. PCP: [facility] Specialists: janey Weber; Lesley, supervisor heat treating Preferred Pharmacy: [facility] Retail Insurance: Independent IP Prescription Benefit: yes Living Will/HPOA: yes, Radha Canales sister LNOK: sister Living Arrangements: Patient lives alone in a ground floor apartment with no steps to enter. Patient states he was independent at home. Transportation: sister, [facility] van DME/HHC: Patient states he has walker, wheelchair, and shower bench at home. Patient is setup with [facility] for outpatient therapy starting 07/21 with [facility] van provided transport. Disposition Plan: Patient to discharge home with outpatient therapy, family support, and follow-up plans place. Daniella SONI, RN, CM
[2020-07-17 15:39] VITALS: BP 128/85; PULSE 83; RESP 16; TEMP 37; O2SAT 98
--- NOTE | 2020-07-17 16:02 | CASEMGMT ---
RN CM in to discuss CAMPBELL form with patient. RN CM in to explain CAMPBELL form to patient, patient voiced understanding. Patient signed CAMPBELL form and placed in the chart. Copy provided to patient. Patient had no further questions or concerns at this time.
[2020-07-17 20:23] VITALS: BP 109/67; PULSE 79; RESP 16; TEMP 36.7; O2SAT 98
[2020-07-17] MEDS: 0.9% Saline Lock 10 ML Syringe IV (20:34)
[2020-07-18 02:30] VITALS: BP 120/68; PULSE 78; RESP 16; TEMP 37.4; O2SAT 96
[2020-07-18] MEDS: oxyCODONE 5 MG Tablet PO ×2 (02:44→08:25)
[2020-07-18] MEDS: Acetaminophen 500 MG Tablet 1000 MG PO (05:43)
[2020-07-18 06:51] VITALS: BP 141/88; PULSE 81; RESP 18; TEMP 37; O2SAT 98
[2020-07-18 07:02] LABS: Hematocrit 28.8 % (40-54); Hemoglobin 9.6 g/dL (13.0-16.5); Mean Corp Hgb Conc 33.3 g/dL (32-36); Mean Corpuscular Hgb 30.7 pg (27.0-32.0); Mean Platelet Vol. 11.7 fl (6.2-12.0); Platelet Count 109 K/mm3 (150-450); RBC Distribution Width CV 13.6 % (11.6-14.6); RBC Distribution Width SD 45.1 fl (35.1-43.9); Red Blood Count 3.13 M/mm3 (4.6-6.2); White Blood Count 9.5 K/mm3 (4.4-11.0)
--- NOTE | 2020-07-18 07:07 | PCM.PN.ORT ---
Subjective: The patient was sitting in bed upon examination. Patient denies any chest pain, shortness of breath, dizziness, lightheadedness, nausea or vomiting, or calf pain. Pain is controlled on medications. No adverse overnight events. Overall patient is doing well. His pain is controlled on medications. He does report pain in the postoperative left knee. Patient has tolerated physical therapy. Plan will be for patient to go home today. He will begin outpatient physical therapy next week. Objective: Vital signs stable and afebrile. Patient is able to plantarflex and dorsiflex actively. Sensation is intact to light touch to saphenous, sural, superficial and deep peroneal, and tibial distribution. Dressing is stable with small amount of drainage over the distal one third of the main incision clean dry and intact. Distal pin site stable with drainage and the proximal pin site clean dry and intact Negative Homans bilaterally, negative signs and symptoms of DVT. - Physical Exam Vitals/I&O's: Vital Signs Temp Pulse Resp BP Pulse Ox 98.6 F 81 18 141/88 H 98 07/18/20 06:51 07/18/20 06:51 07/18/20 06:51 07/18/20 06:51 07/18/20 06:51 Oxygen Flow Rate (L/min) 6 Oxygen Delivery Method Room Air Weight: 98.1 kg Body Mass Index (BMI) 31.0 Finger Stick Blood Glucose 83 Intake and Output for Last 24 Hours 07/16/20 07/17/20 07/18/20 23:59 23:59 23:59 Intake Total 3223.08 / 3723.08 3035.42 / 3535.42 900 / 900 Output Total 1300 / 1900 1150 / 1150 Balance 3223.08 / 3023.08 1735.42 / 1635.42 -250 / -250 Microbiology Past 72 Hours 07/15/20 08:50 Interface Orders SARS-CoV-2 Antigen (Rapid) - Final Laboratory Results 07/17/20 07:20: WBC 13.7 H, RBC 3.71 L, Hgb 11.0 L, Hct 34.1 L, MCV 91.9, MCH 29.6, MCHC 32.3, RDW Std Deviation 44.5 H, RDW Coeff of June 13.3, Plt Count 129 L, MPV 11.6 07/17/20 07:20: Sodium 137, Potassium 4.6, Chloride 107, Carbon Dioxide 23.0, Anion Gap 7, BUN 31 H, Creatinine 1.38 H, Estim Creat Clear Calc 49.96, Est GFR (MDRD) Af Amer 65, Est GFR (MDRD) Non-Af 54 L, BUN/Creatinine Ratio 22.5 H, Glucose 154 H, Calcium 8.1 L 07/18/20 06:45: WBC 9.5, RBC 3.13 L, Hgb 9.6 L, Hct 28.8 L, MCV 92.0, MCH 30.7, MCHC 33.3, RDW Std Deviation 45.1 H, RDW Coeff of June 13.6, Plt Count 109 L, MPV 11.7 Current Medications Acetaminophen (Acetaminophen 500 Mg Tablet) 1,000 mg PO Q8 [facility] Last Admin: 07/18/20 05:43 Dose: 1,000 mg Documented by: Aspirin (Aspirin 81 Mg Tab.Chew) 81 mg PO BID [facility] Last Admin: 07/17/20 21:09 Dose: 81 mg Documented by: Carvedilol (Carvedilol 12.5 Mg Tablet) 12.5 mg PO BID [facility] Last Admin: 07/17/20 21:09 Dose: 12.5 mg Documented by: Enteral Nutritional Formula (Ensure Surgery 237 Ml Liquid) 237 ml PO TIDCM [facility] Last Admin: 07/17/20 16:05 Dose: 237 ml Documented by: Famotidine (Famotidine 20 Mg Tablet) 20 mg PO DAILY [facility] Last Admin: 07/17/20 10:44 Dose: 20 mg Documented by: Ketorolac Tromethamine (Ketorolac 15 Mg/Ml Vial) 15 mg IV Q6H PRN PRN PRN Reason: Pain Score 1-5 Stop: 07/18/20 15:01 Last Admin: 07/17/20 02:46 Dose: 15 mg Documented by: Lisinopril (Lisinopril 20 Mg Tablet) 20 mg PO BID [facility] Last Admin: 07/17/20 21:09 Dose: 20 mg Documented by: Meloxicam ([facility]am 7.5 Mg Tablet) [facility] Morphine Sulfate (Morphine 2 Mg/Ml Syringe) 2 - 4 mg IV Q2H PRN PRN PRN Reason: Pain Score 6-10 Ondansetron HCl (Ondansetron 4 Mg/2 Ml Vial) 4 mg IV Q8H PRN PRN PRN Reason: NAUSEA Last Admin: 07/16/20 20:19 Dose: 4 mg Documented by: Oxycodone HCl (Oxycodone 5 Mg Tablet) 5 - 10 mg PO Q4H PRN PRN PRN Reason: Pain Score 4-10 Last Admin: 07/18/20 02:44 Dose: 5 mg Documented by: Promethazine HCl (Promethazine 25 Mg/Ml Syringe) 12.5 mg IM Q6H PRN PRN; Protocol PRN Reason: NAUSEA/VOMITING Senna/Docusate Sodium (Senna/Docusate Sodium 1 Tablet) 2 tablet PO BID [facility] Last Admin: 07/17/20 21:09 Dose: 2 tablet Documented by: Sodium Chloride (0.9% Nacl Peripheral Flush Adult/Peds) 5 - 15 ml IV UD PRN PRN Reason: SALINE FLUSH Sodium Chloride (0.9% Saline Lock 10 Ml Syringe) 10 - 40 ml IV UD PRN PRN Reason: SALINE FLUSH Last Admin: 07/17/20 20:34 Dose: 10 ml Documented by: Spironolactone (Spironolactone 50 Mg Tablet) 50 mg PO DAILY [facility] Last Admin: 07/17/20 10:44 Dose: 50 mg Documented by: Medical Necessity - Tobacco Use Smoking Status: Never smoker Tobacco Use: Non-smoker Assessment/Plan All Active Problems (Last Reviewed 01/09/20 @ 10:15 by Kristel Acharya PA, PA) Mural thrombus of heart (Resolved) Hemorrhagic stroke (Resolved 10/2015) History of intracranial hemorrhage (Resolved) 1. S/P left total knee replacement with open reduction internal fixation distal femoral condyle laterally POD #2 2. Continue Pain Medications: Tylenol, oxycodone 3. DVT Prophylaxis: Take 81 mg aspirin twice daily for 4 weeks postoperatively for DVT prophylaxis 4. PT/OT: Patient will be toe-touch weightbearing for 2 weeks postoperatively followed by 4 weeks of 50% weightbearing. Plan will be for weightbearing as tolerated at 6-week follow-up. No range of motion limitations. 5. H & H: 9.6/28.8, asymptomatic. Postoperative anemia secondary to acute blood loss without intraoperative complications 6. Reactive leukocytosis: Resolved 9.5, afebrile. Patient did receive Decadron intraoperatively 7. Encouraged Incentive Spirometry 8. Disposition: Patient has tolerated therapy and plan will be for discharge home today. Prescriptions will be E scribed to [facility]. Patient will follow-up per postop instructions. He has outpatient physical therapy to begin next week. Patient will continue with toe-touch weightbearing for the left lower extremity with walker for the next 2 weeks. This will be advanced at next visit as long as x-rays are stable. He will contact her office with any complications. I have reviewed the [place] Automated Rx Reporting System (OARRS) report for this patient for refill pattern and other prescriber involvement as part of the appropriate surveillance for the provision of acute and chronic controlled medications. The report was requested and reviewed on the date of this entry and was considered in the prescribing process.
--- NOTE | 2020-07-18 07:12 | PCM.DC.TKR ---
Discharge Diet: No Restrictions Discharge Activity: May Not Drive May shower in (days): 1 - Dressings must be intact to skin. Turn dressings away from water Ice area for (Minutes): 20 - Every 1-2 hours while awake Weight Bearing Status: Toe touch weight bearing - Left lower extremity with walker Elevate: Operative Extremity Additional Activity Instructions:: Wear elastic stockings for 2 weeks after your surgery. Call your doctor if your incision/area has: Continuous Slow Oozing, Sudden Increased Bleeding, Increased Pain/ Swelling, Increased Redness, Foul Smelling Discharge Call your doctor if you observe: Fever of 101 or Higher, Coldness, Increased Pain, Numbness or Tingling, Change in Color, Calf discomfort, Uncontrolled pain Remove Dressing in (days):: 4 - Okay to remove dressing on July 21, 2020 Additional Instructions: Follow [facility] Post-op Instructions. Once postoperative dressing has been removed only use gentle soap and water over the incision. Do not use any ointments, Neosporin, salves, alcohol pads over the incision for 6 weeks postoperatively. Do not submerge underwater for 6 weeks postoperatively. Allergies/Adverse Reactions: Allergies amlodipine Adverse Reaction (Severe, Verified 07/02/20 10:22) Swollen fingers atorvastatin [From Lipitor] Adverse Reaction (Severe, Verified 07/02/20 10:22) Myalgias Medications to take at Discharge spironolactone 25 mg tablet 50 mg PO DAILY tab 07/02/19 carvedilol 12.5 mg tablet 12.5 mg PO BID #180 tab 11/16/19 lisinopril 20 mg tablet 20 mg PO BID #180 tab 02/15/20 Cholecalciferol (VIT D3) [Vitamin D3] 1,000 unit PO DAILY 07/02/20 Acetaminophen [Tylenol] 1,000 mg PO Q8 #100 tab 07/18/20 Aspirin [Aspirin, Baby] 81 mg PO BID #60 tab 07/18/20 Famotidine [Pepcid] 20 mg PO DAILY #30 tab 07/18/20 Oxycodone [Oxyir] 5 - 10 mg PO Q4H PRN PRN 5 Days #60 tablet 07/18/20 Senna/Docusate Sodium [Senokot-S] 2 tab PO BID #10 tab 07/18/20 The following prescriptions were given: Aspirin [Aspirin, Baby] 81 mg PO BID #60 tab Transmission Status: Pending to [facility] Oxycodone [Oxyir] 5 - 10 mg PO Q4H PRN PRN 5 Days #60 tablet PRN Reason: Pain Score 4-10 Transmission Status: Sent to [facility] Famotidine [Pepcid] 20 mg PO DAILY #30 tab Transmission Status: Pending to [facility] Senna/Docusate Sodium [Senokot-S] 2 tab PO BID #10 tab Transmission Status: Pending to [facility] Acetaminophen [Tylenol] 1,000 mg PO Q8 #100 tab Transmission Status: Pending to [facility] Primary Care Physician: Tomás Verma MD [Primary Care Provider] - Test Results: Test results from this visit will be discussed in further detail at your follow-up appointment, if applicable. Please Follow Up With: [facility] When: 07/21/20 Please Follow Up With: Darshan Kevin PAJoshuaC When: 07/28/20 @ 2:30
[2020-07-18 08:18] VITALS: BP 112/70; PULSE 78; RESP 16; TEMP 36.6; O2SAT 97
[2020-07-18] MEDS: Ensure Surgery 237 ML LIQUID PO (08:25)
[2020-07-18] MEDS: Aspirin 81 MG TAB.CHEW PO (08:26)
[2020-07-18] MEDS: Lisinopril 20 MG Tablet PO (08:26)
[2020-07-18] MEDS: Spironolactone 50 MG Tablet PO (08:26)
[2020-07-18] MEDS: Famotidine 20 MG Tablet PO (08:26)
[2020-07-18] MEDS: Meloxicam 7.5 MG Tablet PO (08:26)
[2020-07-18] MEDS: Senna/Docusate Sodium 1 Tablet 2 TABLET PO (08:26)
[2020-07-18] MEDS: Carvedilol 12.5 MG Tablet PO (08:26)
== END 2020-07-18 11:33 | disposition home or self-care (01) ==
LOC: SDC 17:21 → MS3 17:21
PROVIDERS: Anesthesiology; Admitting Provider Specialist; PCP Family Medicine; Referring Provider Specialist; Visit Provider Specialist
PROC: 0SRD0JZ Replacement of Left Knee Joint with Synthetic Substitute, Open Approach (ICD-10-PCS; CPT 27447; principal; 2020-07-16 11:35)
DX: M17.0 Bilateral primary osteoarthritis of knee (principal); Z20.828 Contact with and (suspected) exposure to other viral communicable diseases; I42.0 Dilated cardiomyopathy; Z86.73 Personal history of transient ischemic attack (TIA), and cerebral infarction without residual deficits; I11.0 Hypertensive heart disease with heart failure; I50.9 Heart failure, unspecified; Z79.899 Other long term (current) drug therapy; S72.422A Displaced fracture of lateral condyle of left femur, initial encounter for closed fracture; Y83.8 Other surgical procedures as the cause of abnormal reaction of the patient, or of later complication, without mention of misadventure at the time of the procedure; Y92.234 Operating room of hospital as the place of occurrence of the external cause; Y93.89 Activity, other specified; Y99.9 Unspecified external cause status
CPT/HCPCS: 01400; 27447; 27514; S2900; 36415; 73560; 80048; 82040; 82962; 83735; 85025; 85027; 87081; 87426; 93005; 96361; 96365; 96366; 96375; 96376; 97110; 97162; 97166; 97530; 97535; 99218; 99251; C1713; C1776; C9803; J7120; A4216; G0378; G0379; G0463; J2405

== ENCOUNTER 2020-10-01 10:00 | Outpatient (RCR) | payer MEDICARE, SELFPAY ==
[2020-01-09 08:53] VITALS: BMI 30.4
[2020-07-16 17:45] VITALS: BMI 31.0
--- NOTE | 2020-07-28 08:22 | HP.PTEVAL ---
Patient's Visit Information SHANNAN HERRERA is a 70 year old M referred to Physical Therapy by Dr. Sylvester Weber MD with a diagnosis of L TKA. Date of Evaluation: 07/31/20 Physical Therapist: Juma Khan DPT - Visit Plan Frequency: 2-3x /Week Duration: 4-6 Weeks Plan: Start with ROM, focus on extension and end range flexion. Work on edema control and gait progression. Once ROM has improved start adding in strength. - Subjective Pt. is here today for his initial evaluation with diagnosis of L TKA. DOS: 07/16/20. Pt. arrives with walker with decnt WBing on his LLE. He is wearing compression stockings as instructed. He reports no calf pain, pain mostly in knee 02/14 this date. Pt. is able to sleep, but is waking up for pain medications and occassionally due to pain. Pt. denies N/T. NO blurred vision, no difficulty breathing. He is hopeful to reduce pain and swelling allowing him to return to all recreational activities without limitations. - Pain L knee Pain Intensity (Out of 10): 7 Pain Intensity Range: 2, 9 - Objective POSTURE: Pt. has heavy use of AD in stance. Lacks TKE in stance. Increased R wt. shifting. PALAPTION: Pt. has increased edema at L knee and calf. 55cm girth at knee, 61cm 6inc above. Negative homans sign. NEURO: normal throughout. ROM: L knee 0-10-70deg. Increased pain lmiting further ROM. Tigh HS noted as well. MMT: RLE 5/5 throughout. LLE: ankle 5/5 throughout; knee- ext 6#, flexion 8#; hip- flexion 1#, ext 4#. GAIT: Pt. ambulates with walker well with increased pain and decreased step length. STAIRS: Step to pattern noted. TUsec with walker. - Goals Goal 1:: LTG: Pt. to be I with HEP. Goal Time Frame: 4-6 Weeks Goal 2:: STG: Pt. to have increased L knee ROM to 0-0-110deg. Goal Time Frame: 2-4 Weeks Goal 3:: LTG: Pt. to have increased AROM of L knee to 0-0-120deg. Goal Time Frame: 4-6 Weeks Goal 4:: STG: Pt. to walk 250ft. with LRD with normalized gait pattern. Goal Time Frame: 2-4 Weeks Goal 5:: LTG: Pt. to ambulate with out AD unlimited distances without increase in symptoms. Goal Time Frame: 4-6 Weeks Goal 6:: LTG: Pt. to have increased LLE strength by 1/2 grade of all effected musculature. Goal Time Frame: 4-6 Weeks - Rehabilitation Potential Physical Therapy Diagnosis: Pt. has signs and symptoms consistnet with L TKA. Pt. has subsequent weakness, hypombility, difficulty with gait and increased pain. Pt. would benefit from PT to work on above limitations progressing back to previous levels of recreational activities. Rehabilitation Potential: Excellent - Anticipated Interventions Patient/Client Instruction: Educate patient on: Condition, Plan of Care, Risk Factors, Benefits of Fitness Program For the Purpose of:: To facilitate caregiver knowledge, To improve self management, To prevent re-injury, To improve ability to perform tasks related to life management, To improve tolerance to ADL's Therapeutic Exercise to Include: Strength training, Power training, Endurance training, Body mechanics, Postural training, Flexibilty training, Gait and locomotor training, Passive ROM, Active ROM For the Purpose of:: To decrease pain, To decrease swelling/inflammation, To increase ROM, To improve nutrient delivery to tissue, To increase oxygenation perfusion, To improve muscle performance and motor function, To improve ability to perform ADL's, To improve gait and locomotor functions, To improve health of tissue, To decrease soft tissue restriction, To increase flexibility/ROM Manual Therapy Techniques to Include: Mobilization, Passive ROM, Soft tissue mobilization For the Purpose of:: To decrease pain, To decrease swelling/inflammation, To increase ROM, To improve nutrient delivery to tissue, To increase oxygenation perfusion, To improve muscle performance and motor function, To decrease soft tissue restriction, To increase flexibility/ROM Cryotherapy (ice pack, ice massage): Yes Thermo therapy (hot pack): Yes Vasopneumatic device: Yes For the Purpose of:: To decrease pain, To decrease swelling/inflammation, To increase ROM, To improve nutrient delivery to tissue, To increase oxygenation perfusion, To improve muscle performance and motor function Thank you for the opportunity to evaluate your patient. For Medicare and Medicare HMO plans, please review the plan of care and approve it. It will need to be FAXED BACK to us at [phone] for Medicare purposes. For Medicare only, by signing this I certify the plan of care. Please let me know if there are questions or concerns regarding this plan of care. Physician Signature: Date:
--- NOTE | 2020-08-15 11:01 | HP.PTREVAL ---
Dr. Sylvester Weber MD, It has been my pleasure to treat SHANNAN HERRERA over the last 8 visits for L TKA. Please see the progress note below for an update on the physical therapy plan of care! Subjective: Pt. reports I am doing okay I just wish it would bend better. Pt. report having 2/10 pain currently. Objective/Function: Pt. did well with PT this date. Pt. could achieve 0-0-100deg of PROM, 0-0-96 AROM. Keep working on ROM as a focus. End range flexion and extension. Patient to maintain partial WBing on his L leg currently. He does have a marked amount of edema, coupled with his CHF. Due to this we need to continue to work on edema control as well. Plan Plan: Start with ROM, focus on extension and end range flexion. Work on edema control and gait progression. Once ROM has improved start adding in strength. Make sure to address his edema with vaso and really focus on ROM currently. He is stiff into extension and flexion and needs to gain more in both directions. Goals Goal 1:: LTG: Pt. to be I with HEP. Goal Time Frame: 4-6 Weeks Goal Progress: Progressing Goal 2:: STG: Pt. to have increased L knee ROM to 0-0-110deg. Goal Time Frame: 2-4 Weeks Goal Progress: Progressing Goal 3:: LTG: Pt. to have increased AROM of L knee to 0-0-120deg. Goal Time Frame: 4-6 Weeks Goal Progress: Progressing Goal 4:: STG: Pt. to walk 250ft. with LRD with normalized gait pattern. Goal Time Frame: 2-4 Weeks Goal Progress: Progressing Goal 5:: LTG: Pt. to ambulate with out AD unlimited distances without increase in symptoms. Goal Time Frame: 4-6 Weeks Goal Progress: Progressing Goal 6:: LTG: Pt. to have increased LLE strength by 1/2 grade of all effected musculature. Goal Time Frame: 4-6 Weeks Goal Progress: Progressing Anticipated Interventions Patient/Client Instruction: Educate patient on: Condition, Plan of Care, Risk Factors, Benefits of Fitness Program For the Purpose of:: To facilitate caregiver knowledge, To improve self management, To prevent re-injury, To improve ability to perform tasks related to life management, To improve tolerance to ADL's Therapeutic Exercise to Include: Strength training, Power training, Endurance training, Body mechanics, Postural training, Flexibilty training, Gait and locomotor training, Passive ROM, Active ROM For the Purpose of:: To decrease pain, To decrease swelling/inflammation, To increase ROM, To improve nutrient delivery to tissue, To increase oxygenation perfusion, To improve muscle performance and motor function, To improve ability to perform ADL's, To improve gait and locomotor functions, To improve health of tissue, To decrease soft tissue restriction, To increase flexibility/ROM Manual Therapy Techniques to Include: Mobilization, Passive ROM, Soft tissue mobilization For the Purpose of:: To decrease pain, To decrease swelling/inflammation, To increase ROM, To improve nutrient delivery to tissue, To increase oxygenation perfusion, To improve muscle performance and motor function, To decrease soft tissue restriction, To increase flexibility/ROM Cryotherapy (ice pack, ice massage): Yes Thermo therapy (hot pack): Yes Vasopneumatic device: Yes For the Purpose of:: To decrease pain, To decrease swelling/inflammation, To increase ROM, To improve nutrient delivery to tissue, To increase oxygenation perfusion, To improve muscle performance and motor function Please do not hesitate to contact me at [phone] by phone or if you have questions or concerns regarding this new plan of care! Sincerely, Juma Khan DPT
--- NOTE | 2020-09-08 11:10 | HP.PTREVAL ---
Dr. Sylvester Weber MD, It has been my pleasure to treat SHANNAN HERRERA over the last 17 visits for L TKA. Please see the progress note below for an update on the physical therapy plan of care! Subjective: Pt. reports being 75% better overall. He is progressing well. pt. is only using cane outside of home, no AD in home. Pt. is pleased overall. Objective/Function: ROM: AROM- 0-4-106deg. PROM 0-0-113deg. MMT: 4/5 throughout. GAIT: Pt. is ambulating well without AD. He is using cane in community, no AD at home. Pt. was able to ambualte 500+ feet today without AD, but does have slight loss of TKE during L stance phase. TU.11sec. STAIRS: Pt. is able to negotiate with reciprocal pattern. Good pattern with ascending, slight early heel off on LLE with descending. Plan Plan: Pt. did well today with PT. He is progressing well and has improved strength and ROM. Pt. needs some work on full TKE, but is progressing well. Cont. to progress strength, functional strengthening. Goals Goal 1:: LTG: Pt. to be I with HEP. Goal Time Frame: 4-6 Weeks Goal Progress: Progressing Goal 2:: STG: Pt. to have increased L knee ROM to 0-0-110deg. Goal Time Frame: 2-4 Weeks Goal Progress: Progressing Goal 3:: LTG: Pt. to have increased AROM of L knee to 0-0-120deg. Goal Time Frame: 4-6 Weeks Goal Progress: Progressing Goal 4:: STG: Pt. to walk 250ft. with LRD with normalized gait pattern. Goal Time Frame: 2-4 Weeks Goal Progress: Progressing Goal 5:: LTG: Pt. to ambulate with out AD unlimited distances without increase in symptoms. Goal Time Frame: 4-6 Weeks Goal Progress: Progressing Goal 6:: LTG: Pt. to have increased LLE strength by 1/2 grade of all effected musculature. Goal Time Frame: 4-6 Weeks Goal Progress: Progressing Anticipated Interventions Patient/Client Instruction: Educate patient on: Condition, Plan of Care, Risk Factors, Benefits of Fitness Program For the Purpose of:: To facilitate caregiver knowledge, To improve self management, To prevent re-injury, To improve ability to perform tasks related to life management, To improve tolerance to ADL's Therapeutic Exercise to Include: Strength training, Power training, Endurance training, Body mechanics, Postural training, Flexibilty training, Gait and locomotor training, Passive ROM, Active ROM For the Purpose of:: To decrease pain, To decrease swelling/inflammation, To increase ROM, To improve nutrient delivery to tissue, To increase oxygenation perfusion, To improve muscle performance and motor function, To improve ability to perform ADL's, To improve gait and locomotor functions, To improve health of tissue, To decrease soft tissue restriction, To increase flexibility/ROM Manual Therapy Techniques to Include: Mobilization, Passive ROM, Soft tissue mobilization For the Purpose of:: To decrease pain, To decrease swelling/inflammation, To increase ROM, To improve nutrient delivery to tissue, To increase oxygenation perfusion, To improve muscle performance and motor function, To decrease soft tissue restriction, To increase flexibility/ROM Cryotherapy (ice pack, ice massage): Yes Thermo therapy (hot pack): Yes Vasopneumatic device: Yes For the Purpose of:: To decrease pain, To decrease swelling/inflammation, To increase ROM, To improve nutrient delivery to tissue, To increase oxygenation perfusion, To improve muscle performance and motor function Please do not hesitate to contact me at [phone] by phone or if you have questions or concerns regarding this new plan of care! Sincerely, Juma Khan DPT
--- NOTE | 2020-10-01 10:54 | HP.PTDCSUM ---
It has been my pleasure to treat SHANNAN HERRERA referred by Dr. Sylvester Weber MD, with the diagnosis of L TKA for a total of 22 visit(s). Discharge Date: 10/01/20 Please see the following information for a summary of their discharge status. Subjective: Pt. reports being 90& better overall. He reports no pain currently. Pt. reports being able to do all ADLs without issues. L knee Pain Intensity (Out of 10): 0 % Improvement: 90 Objective/Function: ROM: AROM 0-0-113deg. PROM 0-0-118deg. MMT: 5/5 throughout LLE knee and hip. GAIT: Pt. is I with his gait, He has a slightly decreased tempo, but reports no pain with walking. Good swing through, good TKE during stance phase. STAIRS: 1 HR with reciprocal pattern no pain or weakness noted. TU.9sec. 30 sec sit to stand test 21 reps. PT. educated on his HEP, he was able to complete without issues. Handout given for increased carry overover. Goal 1:: LTG: Pt. to be I with HEP. Goal Progress: Goal Met Goal 2:: STG: Pt. to have increased L knee ROM to 0-0-110deg. Goal Progress: Goal Met Goal 3:: LTG: Pt. to have increased AROM of L knee to 0-0-120deg. Goal Progress: Goal Met Goal 4:: STG: Pt. to walk 250ft. with LRD with normalized gait pattern. Goal Progress: Goal Met Goal 5:: LTG: Pt. to ambulate with out AD unlimited distances without increase in symptoms. Goal Progress: Goal Met Goal 6:: LTG: Pt. to have increased LLE strength by 1/2 grade of all effected musculature. Goal Progress: Goal Met Plan: Pt. to be DC to HEP at this point in time. Discharge Comments: Pt. did well with his therapy and has progressed back to all ADL activities without issues. He is walking better and has improved on his ROM. He will be DC to HEP at this point intime. If there are questions or concerns regarding this patient's physical therapy, please feel free to call me at [phone]. Thank you for the referral of this patient. Sincerely, Juma Khan DPT
== END 2020-10-01 19:00 | disposition home or self-care (01) ==
LOC: PT 10:00
PROVIDERS: PCP Family Medicine; Referring Provider Specialist; Visit Provider Specialist
DX: Z47.1 Aftercare following joint replacement surgery (principal); Z96.652 Presence of left artificial knee joint; M17.32 Unilateral post-traumatic osteoarthritis, left knee
CPT/HCPCS: 97016; 97110; 97140; 97161; 97164; 97530

== ENCOUNTER → 2020-10-03 06:28 | Outpatient (CLI) | payer MEDICARE, SELFPAY ==
[2020-09-19 11:21] VITALS: BMI 29.8
--- NOTE | 2020-10-03 06:30 | ECHOD_ITS ---
Reason For Study: Afib/Flutter Procedure This was a 2D Doppler, Color Flow transthoracic echocardiogram. Exam performed in department. Left Ventricle Normal LV size. The estimated ejection fraction is 20 %. Severe global left ventricular systolic dysfunction. Severe segmental systolic dysfunction (see wall motion). There is severe global hypokinesis of the left ventricle. Right Ventricle Normal RV size. Normal systolic function. Atria Normal left atrium. Normal right atrium. Mitral Valve Normal mitral valve. Mild (1+) mitral valve insufficiency. Tricuspid Valve Normal tricuspid valve. Mild tricuspid valve insufficiency. Pulmonary artery systolic pressure is 25 mmHg. Aortic Valve Trisinus/trileaflet aortic valve. Pulmonic Valve Normal pulmonic valve. Great Vessels Normal aortic root. The pulmonary artery is normal size. Normal inferior vena cava. Pericardium/Pleural No pericardial effusion. MMode/2D Measurements & Calculations LVIDd: 5.5 cm IVSd: 1.2 cm Ao root diam: 4.0 cm LVIDs: 4.8 cm LVPWd: 1.2 cm LA dimension: 4.1 cm FS: 12.2 % LAV(MOD-bp): 66.8 ml LVAd ap4: 43.2 cm2 SV(MOD-sp4): 47.8 ml LAV(MOD-bp) Indexed: 31.5 ml/m2 EDV(MOD-sp4): 164.3 ml LAV(MOD-sp2): 84.6 ml EDV(sp4-el): 174.8 ml LAV(MOD-sp4): 44.7 ml LVAs ap4: 34.3 cm2 ESV(MOD-sp4): 116.6 ml ESV(sp4-el): 120.5 ml EF(MOD-sp4): 29.1 % EF(sp4-el): 31.1 % SV(sp4-el): 54.3 ml LA A4 area: 17.1 cm2 RA A4 area: 15.0 cm2 Time Measurements MV dec time: 0.27 sec Doppler Measurements & Calculations MV E max bandar: 34.7 cm/sec Lat Peak E' Bandar: 4.0 cm/sec Med Peak E' Bandar: 2.8 cm/sec MV A max bandar: 81.5 cm/sec E/E' lat: 8.7 E/E' med: 12.2 MV E/A: 0.43 MV V2 max: 95.4 cm/sec MV P1/2t max bandar: 45.8 cm/sec Ao V2 max: 131.1 cm/sec MV max P.6 mmHg MV P1/2t: 91.7 msec Ao max P.9 mmHg MV V2 mean: 45.4 cm/sec MV mean P.1 mmHg MV dec slope: 146.5 cm/sec2 MV V2 VTI: 22.4 cm MVA(P1/2t): 2.4 cm2 LV V1 max: 75.1 cm/sec PA V2 max: 82.8 cm/sec TR max bandar: 236.4 cm/sec LV V1 max P.3 mmHg TR max P.3 mmHg Interpretation Summary Normal LV size. The estimated ejection fraction is 20 %. Severe global left ventricular systolic dysfunction. Severe segmental systolic dysfunction (see wall motion). Pulmonary artery systolic pressure is 25 mmHg. Compared to previous study, the left ventricular systolic function has worsened.. Ordering Physician: Mario Sutton Referring Physician: Tomás Verma Performed By: Kody العراقي RCS
--- NOTE | 2020-10-03 09:49 | STRESSREP ---
Stress Test Report Exercise myocardial perfusion stress test. 70-year-old man with a history of previous nonischemic cardiomyopathy, mural thrombus, intracranial hemorrhage. Stress protocol: Resting EKG demonstrates normal sinus rhythm with a rate of 68 bpm normal intervals are noted resting blood pressure is 1 and 62/80 8 mmHg. The patient exercised according to regular Emmanuel protocol for a total duration of 4 minutes. The maximum heart rate attained was 1 and 36 bpm which was 91% of maximum predicted heart rate the maximum workload was 5.8 metabolic equivalents. Patient maintained sinus rhythm throughout the recording. At rest there were no ST or T wave changes noted to suggest ischemia at peak exercise upsloping ST changes only were noted with no meet the criteria for ischemia. The peak blood pressure was 182/98 mmHg which is a good blood pressure response to exercise the test was terminated due to knee discomfort. Myocardial perfusion protocol. 11.8 mCi of technetium 99m sestamibi was injected. Patient exercised according to regular Emmanuel protocol for 4 minutes and at peak exercise 32.9 mCi of technetium 99m sestamibi was injected stress images were obtained stress and rest images were reconstructed and compared in the short axis vertical long horizontal long axis. Gated images were also obtained Perfusion SPECT analysis: Review of the images demonstrate a medium size defect noted in the mid anterior wall on the stress images. There is also a small defect noted in the basal inferior wall. The resting images demonstrate a similar pattern suggestive of a previous anterior infarct and basal inferior infarct. No areas of reversibility are noted suggest ischemia. Gated SPECT analysis: The gated ejection fraction is 35%. Conclusion: Exercise myocardial perfusion stress test with no evidence of ischemia noted at a moderate workload. Previous moderate-sized anterior infarct noted. Previous basal inferior infarct noted.
== END ==
PROVIDERS: PCP Family Medicine; Referring Provider Internal Medicine Cardiovascular Disease; Visit Provider Internal Medicine Cardiovascular Disease
DX: I48.0 Paroxysmal atrial fibrillation (principal); I48.92 Unspecified atrial flutter; I25.2 Old myocardial infarction
CPT/HCPCS: 78452; 93017; 93306; A9500; A4216

== ENCOUNTER → 2020-10-07 15:45 | Outpatient (CLI) | payer MEDICARE, SELFPAY ==
[2020-09-19 11:21] VITALS: BMI 29.8
[2020-10-07 15:52] LABS: Bacteria 0 SEEN /hpf (None Seen); Mucous, Urine 0 SEEN /hpf (<or=2+); Red Blood Cells-Urine 0 SEEN /hpf (0-5); Squamous Epithelial Cells - UA 0 SEEN /hpf (0-5); White Blood Cells 0 SEEN /hpf (0-5)
[2020-10-07 16:38] LABS: Color, Urine Yellow (Yellow); Glucose, Dipstick Normal (Normal); Ketone-Dipstick Negative (Negative); Leukocyte Esterase-Dipstick Negative /ul (Negative); Nitrite-Dipstick Negative (Negative); Occult Blood-Urine Negative /ul (Negative); Protein-Dipstick Negative (Negative); Urine Bilirubin Dipstick Negative (Negative); Urine Clarity Sl. Cloudy (Clear); Urine Urobilinogen Normal (Normal)
[2020-10-07 16:40] LABS: Hematocrit 39.5 % (40-54); Hemoglobin 12.4 g/dL (13.0-16.5); Mean Corp Hgb Conc 31.4 g/dL (32-36); Mean Corpuscular Hgb 28.3 pg (27.0-32.0); Mean Corpuscular Volume 90.2 fL (80-94); Mean Platelet Vol. 12.1 fl (6.2-12.0); Platelet Count 182 K/mm3 (150-450); RBC Distribution Width SD 46.1 fl (35.1-43.9); Red Blood Count 4.38 M/mm3 (4.6-6.2); White Blood Count 6.1 K/mm3 (4.4-11.0)
[2020-10-07 16:52] LABS: International Normalized Ratio 1.1; Prothrombin Time (Protime)PT. 13.6 SECONDS (11.7-14.9)
[2020-10-07 17:15] LABS: Anion Gap 6 (5-15); BUN 26 mg/dL (7-18); BUN/Creat Ratio 21.8 RATIO (10-20); Calcium,Total 9.3 mg/dL (8.5-10.1); Chloride 107 mmol/L (98-107); Creatinine, Serum 1.19 mg/dL (0.70-1.30); EST Glomerular Filtration Rate 64 mL/min (>60); Est Glom Filt Rate - Afr Amer 77 mL/min (>60); Glucose 95 mg/dL (74-106); Potassium 4.7 mmol/L (3.5-5.1); Sodium Level 139 mmol/L (136-145)
== END ==
PROVIDERS: PCP Family Medicine; Referring Provider Internal Medicine Cardiovascular Disease; Visit Provider Internal Medicine Cardiovascular Disease
DX: I48.0 Paroxysmal atrial fibrillation (principal); I50.22 Chronic systolic (congestive) heart failure; I42.8 Other cardiomyopathies
CPT/HCPCS: 36415; 80048; 81001; 85027; 85610

== ENCOUNTER 2020-10-16 08:48 | Day surgery (SDC) | payer MEDICARE, SELFPAY ==
[2020-09-19 11:21] VITALS: BMI 29.8
[2020-10-15 08:06] VITALS: BMI 29.8
[2020-10-16] VITALS (13 sets, daily range): BP systolic 117–148; BP diastolic 64–89; PULSE 61–85; RESP 16–18; TEMP 36.7–36.9; O2SAT 95–99
--- NOTE | 2020-10-16 03:35 | HP_ITS ---
[facility] History of Present Illness Details: SHANNAN HERRERA, is a 70 M who presents to the office today for a cardiovascular outpatient follow-up. He has a history of nonischemic cardiomyopathy, mural thrombus and intracranial hemorrhage in 2013, paroxysmal atrial fibrillation, hypertension, and hyperlipidemia. He tells me that he recently had knee surgery. You also do remember that his last ejection fraction was noted to be 30% with moderately severe segmental wall motion abnormalities present. He has been on his medication though he refuses to take aspirin. From a cardiac standpoint, patient is doing well. He does not have any chest discomfort/heaviness/tightness. His exercise tolerance is stable for his age. He does not have any worsening symptoms of shortness of breath. He denies any PND. He does not have any orthopnea. He does not have any symptoms of congestive heart failure. He does not have any palpitations that he is aware of. He does not have any lightheadedness or dizziness. He does not have any near-syncope or syncope. He does not have any lower extremity edema. He does not have any symptoms of claudication. His physical exam is unremarkable. Intake Vital Signs 09/19/20 Height 5 ft 10 in 09/19/20 Weight: 208 lb 09/19/20 BMI 29.8 09/19/20 BP 135/87 H 09/19/20 Respiration 16 09/19/20 Pulse 68 09/19/20 Pulse Oximetry (%) 97 Intake Visit Reasons: 6 M FU (we r/s from 09/04) Allergies amlodipine Adverse Reaction (Severe, Verified 09/19/20 11:21) Swollen fingers atorvastatin [From Lipitor] Adverse Reaction (Severe, Verified 09/19/20 11:21) Myalgias Medications spironolactone 25 mg tablet 50 mg PO DAILY tab 07/02/19 [History Confirmed 09/19/20] carvedilol 12.5 mg tablet 12.5 mg PO BID #180 tab 11/16/19 [Rx Confirmed 09/19/20] lisinopril 20 mg tablet 20 mg PO BID #180 tab 02/15/20 [Rx Confirmed 09/19/20] Cholecalciferol (VIT D3) [Vitamin D3] 1,000 unit PO DAILY 07/02/20 [History Confirmed 09/19/20] Acetaminophen [Tylenol] 1,000 mg PO Q8 #100 tab 07/18/20 [Rx Confirmed 09/19/20] Ejection fraction %: 30 to 34 [facility] Medical History Paroxysmal atrial fibrillation (Chronic) Chronic systolic (congestive) heart failure (Chronic) Non-ischemic cardiomyopathy (Chronic) 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) Hemorrhagic stroke (Resolved 10/2015) Essential (primary) hypertension (Chronic) Hyperlipidemia (Chronic) Acute on chronic pancreatitis (Chronic) Cholelithiasis (Chronic) Gallstone pancreatitis (Chronic) Obesity (Chronic) Mural thrombus of heart (Resolved) Syncope (Resolved) Encounter for long-term current use of high risk medication (Inactive) Family history of CVA (Inactive) Surgical History H/O knee surgery (Resolved) History of left heart catheterization (Resolved 11/24/13) History of open reduction and internal fixation (ORIF) procedure (Resolved 07/2020) History of total left knee replacement (Resolved 07/2020) S/P laparoscopic cholecystectomy (Resolved 09/2018) S/P tonsillectomy (Resolved) Family History Father CAD (coronary artery disease) Mother CVA (cerebral vascular accident) Other Family history of CVA Social History (Updated 09/19/20 @ 11:[address] Mario Sutton MD) Smoking Status: Never smoker alcohol intake: never substance use type: does not use caffeine: Yes Type: coffee what type of physical activity do you participate in: other frequency: 1-2 times per week duration: 15-30 minutes/day seatbelt use: always do you feel safe at home: Yes ROS Const Const: Negative for fatigue, weakness, headache(s), frequent falls, difficulty sleeping or excessive sweating Eyes Eyes: Negative for loss of peripheral vision, transient loss of vision, blurry vision, double vision or tunnel vision ENT ENT: Negative for headache(s), dizziness, Nosebleed/epistaxis or balance problems Cardio Chest Pain: No Palpitations: No Edema: Left (LLE s/p LTKR) Muscle aches with walking: None Resp Respiratory: Negative for SOB with activity, SOB at rest, SOB orthopnea\SOB lying down, Cough or paroxysmal nocturnal dyspnea GI GI: Negative nausea, vomiting, heartburn or black,tarry stools : Negative for hematuria Musc Musc: Negative for muscle aches/ myalgia, muscle weakness, joint pain or balance problems Skin Skin: Negative non-healing lesions, rash or unusual bruising Neuro Neuro: Negative for dizziness, lightheadedness, near syncope, syncope, orthostatic symptoms, frequent falls, headache(s), weakness, blurry vision, double vision or lack of coordination Samir Hematologic/Lymphatic: Negative for easy bleeding or easy bruising Endo Endo: Negative for fatigue, excessive sweating or increased thirst/drinking Psych Psych: Negative for anxiety or depression Allergy Allergy/Immunology: Negative for hives, Negative for rash Cardiology Exam Const Appearance: cooperative, healthy appearing, no acute distress, well developed and well groomed Nutritional Appearance: average body habitus and well nourished Orientation: alert, awake and oriented x3 Head Head: normal to inspection, normocephalic and atraumatic Ears: hearing grossly normal bilaterally and external ears normal Nose: external nose normal, nares normal, nasal mucous membranes and turbinates normal, septum normal, no nasal discharge Face and Sinus: face symmetric Mouth: oral mucosae normal, tongue normal, oropharynx normal and moist mucous membranes Teeth and gingiva: dentition normal Throat: posterior oropharynx normal, tonsils normal and uvula midline Eyes General: appearance normal, both eyes and all related structures Eyelids: eyelids normal Conjunctivae: conjunctivae normal Pupils: PERRL, normal by confrontation and accommodation normal EOM: EOM intact bilaterally Neck Neck: normal visual inspection, trachea midline and no JVD JVD: +5 Carotids: normal carotid upstroke and bounding pulses Chest Chest inspection: normal inspection of the chest, symmetric chest movement and normal respiratory effort Auscultation: Bilateral: Clear to Auscultation Cardio Palpation: normal PMI Rate: regular rate Rhythm: regular rhythm Heart sounds: S1 normal, S2 normal and normal, physiologic split S2; negative rub, gallop or murmur GI GI: normal to inspection, soft, no hepatosplenomegaly and bowel sounds present Neuro General: alert, awake, oriented x3, gait normal, moves all extremities and no focal sensory deficit Skin Skin: no rashes or lesions noted Extremities Pulses: Normal: Right Femoral Pulse, Left Femoral Pulse, Right Dorsalis Pedis Pulse, Left Dorsalis Pedis Pulse, Right Posterior Tibial Pulse, Left Posterior Tibial Pulse, Right Radial Pulse, Left Radial Pulse Lower Extremity Edema: None: Bilateral Musculoskel Musculoskeletal: No joint tenderness Psych Psychological: normal affect Assessment & Plan 1. Non-ischemic cardiomyopathy I42.8 Plan He appears to have nonischemic cardiomyopathy. His last catheterization was in 2013 and at that time apparently did not demonstrate any obstructive coronary disease. It may be helpful for us to repeat his echocardiogram and also a stress test to ascertain that there is been no progression of any coronary disease in the interim. Depending on those findings further recommendations will be made. If his ejection fraction is still noted to be less than 35% then we should consider him for an implantable defibrillator. Patient Instructions Wall presents evaluate due to apparent 2. Essential (primary) hypertension I10 Plan His blood pressure is under good control at this particular time and I would not suggest that we make any other major changes. 3. Hyperlipidemia E78.5 Plan He does have a history of hyperlipidemia. His most recent lipid profile demonstrates a total cholesterol 180, HDL 65, LDL 106 and triglycerides of 47. He is not on any statin at this time. We will continue to observe him. Plan Detail Other Orders Orders: Echo Complete Today I48.0 Nuclear Stress Test - Treadmil Today I48.0 Follow Up 6 Months (mmm) Coding Level of Care Code Off vis,est,level 4 Diagnoses Non-ischemic cardiomyopathy I42.8 Essential (primary) hypertension I10 Hyperlipidemia E78.5 ??Hyperlipidemia type: unspecified Coding Level of Care Code Off vis,est,level 4 Diagnoses Non-ischemic cardiomyopathy I42.8 Essential (primary) hypertension I10 Hyperlipidemia E78.5 ??Hyperlipidemia type: unspecified Supplemental Info Supplemental Information Labs LDL Cholesterol 106 mg/dL (0-130) 06/17/20 HDL Cholesterol 65 mg/dL (40-) 06/17/20 Triglycerides 47 mg/dL (-199) 06/17/20 VLDL Cholesterol 9 mg/dL (5-40) 06/17/20 Diagnostics Electrocardiogram 07/08/20 Echocardiogram 08/03/19
[2020-10-16] MEDS: Cefazolin 2 GM in 0.9% Normal Saline 100 ML IV (10:26)
--- NOTE | 2020-10-16 11:21 | PCM.OPRPT ---
Report of Operation Date of Procedure: 10/16/20 Description of Procedure: Diagnosis: IRREVERSIBLE Cardiomyopathy with NYHA Class II; Left ventricular ejection fraction 30% despite optimal medical therapy. ICD for primary prevention Preoperative diagnosis implantation of primary prevention single chamber icd Postoperative diagnosis same as above After informed consent and IV antibiotics the patient was brought to the [facility]ization laboratory. The left side of the chest was prepped and draped in the usual sterile manner. The patient was sedated with intermittent boluses of IV Versed and fentanyl as well as subcutaneous 1% lidocaine. An incision was made inferior to the clavicle to accommodate the size of the hardware device. The pocket was created using blunt and Bovie dissection. Hemostasis was obtained. Using the Seldinger technique the axillary vein was cannulated once and a guidewire was advanced under fluoroscopic guidance. Over the guidewire a sheath was advanced. Through this sheath, the electrode was positioned under fluoroscopic guidance into the right ventricle and was actively fixated. Once actively fixated, the lead was tested to check for proper sensing, capture threshold, impedance and to exclude diaphragmatic stimulation. Once the lead was implanted and all electrical parameters were confirmed to be functioning normally with appropriate values, the leads was then sutured to the pectoralis muscle with 2-0 silk on the Silastic collar ?2. The sponge and needle count were correct. Hemostasis was obtained. Antibiotic solution was used to flush the pocket. The new device was brought to the field. The lead was placed in the appropriate position of the header of the device and were secured by the setscrews and confirmed by the tug test. The device and the leads were then placed in the pocket. Pocket was closed with a deep layer of running 2-0 Vicryl, superficial layer of running 4-0 Vicryl and skin with Steri-Strips that were covered with a rolled 4 x 4's and Tegaderm. The patient left the lab with the device programmed to chronic parameters. There were no complications. Implanted system is a single chamber [place] Rapid Mobile ICD Lead and device serial and model numbers are available in the chart documents provided by the device company aircraft sales representative procedure summary.
--- NOTE | 2020-10-16 14:15 | RAD_ITS ---
STUDY: X-RAY CHEST REASON FOR EXAM: Male, 70 years old. R/O PTHX ;lead position, post PERMANENT ICD plcmnt -- Do 2-4hrs post procedure;dont raise arm; Wet read TECHNIQUE: PA and lateral views of the chest. COMPARISON: 10/17/2015 FINDINGS: Interval placement of left subclavian single lead AICD with no pneumothorax. The lungs are clear and expanded. There is no demonstrated pleural abnormality. There is moderate cardiac enlargement. Normal mediastinum and dario. Normal visualized pulmonary arteries. Normal visualized aortic arch and descending thoracic aorta. Normal visualized thoracic spine. Normal visualized ribs, clavicles, and shoulders. There is no demonstrated abnormality of the visualized soft tissue structures of the upper abdomen. RAD/Chest PA and Lateral IMPRESSION: Interval placement of left subclavian single lead AICD with no pneumothorax. Electronically Signed: Toni Chavarria MD at 14:50 EST Tel , Service support ,
[2020-10-16] MEDS: Carvedilol 12.5 MG Tablet PO (17:27)
[2020-10-16] MEDS: Lisinopril 20 MG Tablet PO (17:27)
[2020-10-17] MEDS: Acetaminophen 325 MG Tablet PO (01:30)
[2020-10-17 03:45] VITALS: BP 106/69; PULSE 74; RESP 18; TEMP 36.7; O2SAT 97
[2020-10-17 04:02] VITALS: PULSE 57
[2020-10-17 07:00] VITALS: PULSE 63
[2020-10-17 09:05] VITALS: BP 120/79; PULSE 66; RESP 16; TEMP 36.9; O2SAT 95
[2020-10-17] MEDS: Carvedilol 12.5 MG Tablet PO (09:07)
[2020-10-17] MEDS: Lisinopril 20 MG Tablet PO (09:07)
--- NOTE | 2020-10-17 09:07 | PCM.PN.CARD ---
Subjectve: Pt seen and evaluated Objective: Vital Signs Temp Pulse Resp BP Pulse Ox 98.1 F 63 18 106/69 97 10/17/20 03:45 10/17/20 07:00 10/17/20 03:45 10/17/20 03:45 10/17/20 03:45 Oxygen Delivery Method Room Air Weight: 208 lb Body Mass Index (BMI) 29.8 Finger Stick Blood Glucose 83 Intake and Output for Last 24 Hours 10/15/20 10/16/20 10/17/20 23:59 23:59 23:59 Intake Total 570 / 570 Output Total 725 / 1335 1085 / 1085 Balance -155 / -765 -1085 / -1085 General: Awake, Alert, Oriented x 3 HEENT: PERRL, EOMI, Sclera Non Icteric Neck: Supple, Good ROM, No Lymph Node Enlargement Lungs: Clear to auscultation Cardiovascular: Regular Rhythm, Normal S1, Normal S2, No Murmurs, No Rubs, No Gallops Rhythm: EKG: ECHO: Stress Test: Cardiac Cath: PCI: CT Surgery: Holter monitor: EPS: PPM: CXR: Chest CT Scan: Medical Necessity - Tobacco Use Smoking Status: Never smoker Assessment/Plan 1. S/p ICD stable good numbers no pneumo dc home follow up in office
[2020-10-17] MEDS: Spironolactone 25 MG Tablet 50 MG PO (09:08)
--- NOTE | 2020-10-17 09:09 | DCINST_ITS ---
Discharge Diet: No Restrictions Discharge Activity: May Not Drive Call your doctor if your incision/area has: Continuous Slow Oozing, Sudden Increased Bleeding, Increased Pain/ Swelling, Increased Redness, Foul Smelling Discharge, Swelling at the incision site Call your doctor if you observe: Fever of 101 or Higher, Shortness of breath, Dizziness, Fainting spells, Swelling in the ankles, Chest pain, Prolonged hiccoughing, Increased palpitations (irregular heartbeat) Suture Line Care: Avoid Pulling/Pushing, Avoid Pinching/Bending Cleanse incision/area with: Do not get Incision Wet, Keep Dressing Clean & Dry Additional Dressing/Incision Instructions:: When dressing is removed, wash and dry incision. Keep covered with a light bandage if it is rubbing against your clothing. Do not cover the incision with an airtight bandage. Change the bandage daily. Do not remove steri strips. The strips will fall off on their own. Additional Instructions: Signs and Symptoms to Report to Your Doctor at Once - call your doctor's office or Doctor's Registry ([phone]) Call 911 or go to the nearest Emergency Department if you feel you need urgent care. *Infection (fever, increased redness or swelling at the incision site, drainage from the incision increased pain at the pacemaker site) *Shortness of breath *Dizziness *Fainting spells *Swelling in the ankles *Chest pain *Prolonged hiccoughing *Increased palpitaitons (irregular heartbeat) Medications: Take your pain medication as directed. Refer to your discharge instruction sheet for a list of medications you are to take. Allergies/Adverse Reactions: Allergies amlodipine Adverse Reaction (Severe, Verified 09/19/20 11:21) Swollen fingers atorvastatin [From Lipitor] Adverse Reaction (Severe, Verified 09/19/20 11:21) Myalgias Medications to take at Discharge spironolactone 25 mg tablet 50 mg PO DAILY tab 07/02/19 carvedilol 12.5 mg tablet 12.5 mg PO BID #180 tab 11/16/19 lisinopril 20 mg tablet 20 mg PO BID #180 tab 02/15/20 Cholecalciferol (VIT D3) [Vitamin D3] 1,000 unit PO DAILY 07/02/20 Acetaminophen [Tylenol] 1,000 mg PO Q8 #100 tab 12/11/20 Primary Care Physician: Tomás Verma MD [Primary Care Provider] - Test Results: Test results from this visit will be discussed in further detail at your follow- up appointment, if applicable. When: [facility] october 23 at 1 PM Proposed Discharge Date: 10/17/20
--- NOTE | 2020-10-17 09:42 | PHA.DC.MR ---
Pharmacy Service has performed discharge medication reconciliation for this patient. The patient's discharge medication list was reviewed for discrepancies and discrepancies were resolved. Home Medications spironolactone 25 mg tablet 50 mg PO DAILY tab 07/02/19 carvedilol 12.5 mg tablet 12.5 mg PO BID #180 tab 11/16/19 lisinopril 20 mg tablet 20 mg PO BID #180 tab 02/15/20 Cholecalciferol (VIT D3) [Vitamin D3] 1,000 unit PO DAILY 07/02/20 Acetaminophen [Tylenol] 1,000 mg PO Q8 #100 tab 07/18/20
== END 2020-10-17 09:09 | disposition home or self-care (01) ==
LOC: CLSP 08:49 → PCU 10-20 08:42
PROVIDERS: PCP Family Medicine; Referring Provider Internal Medicine Cardiovascular Disease; Visit Provider Internal Medicine Cardiovascular Disease
DX: I42.8 Other cardiomyopathies (principal); E78.5 Hyperlipidemia, unspecified; I48.0 Paroxysmal atrial fibrillation; I50.22 Chronic systolic (congestive) heart failure; Z88.8 Allergy status to other drugs, medicaments and biological substances; Z95.810 Presence of automatic (implantable) cardiac defibrillator; I11.0 Hypertensive heart disease with heart failure
CPT/HCPCS: 33249; 71046; 87426; 93641; 99152; 99153; C9803; J7040; A4216; C1894

== ENCOUNTER 2021-01-17 11:40 | Emergency (ER) | payer MEDICARE, SELFPAY ==
[2020-10-15 08:06] VITALS: BMI 29.8
[2021-01-17] VITALS (10 sets, daily range): BP systolic 112–144; BP diastolic 66–99; PULSE 68–97; RESP 12–18; TEMP 36.2–36.6; O2SAT 96–100; BMI 28.7
--- NOTE | 2021-01-17 11:47 | ED.RN ---
LASTKNOWN WELL, SISTER TALKED TO HIM ON PHONE LAST TUESDAY.
--- NOTE | 2021-01-17 11:49 | CT_ITS ---
STUDY: CT HEAD STROKE PROTOCOL W/O CONTRAST INJECTION REASON FOR EXAM: Male, 70 years old. Neuro deficit, acute, stroke suspected RADIATION DOSAGE (If Supplied By Facility): CTDIvol = ( ) mGy, DLP = ( ) mGycm TECHNIQUE: Transaxial CT imaging of the brain was performed without administration of intravenous contrast material. Individualized dose optimization techniques were used for this CT. COMPARISON: No relevant priors. FINDINGS: Normal soft tissue structures. Normal calvarium. There is mild cerebral atrophy with widening of the extra-axial spaces and ventricular dilatation. There are areas of decreased attenuation within the white matter tracts of the supratentorial brain, consistent with microvascular disease changes. Normal basal ganglia and thalami. Normal brainstem. Normal cerebellum. There is no intracranial hemorrhage. Decreased attenuation and loss of stiles-white differentiation of the right temporal and parietal lobe as well as the right caudate nucleus consistent with a subacute right middle cerebral artery infarct. Another area of insufflation within the right occipital lobe consistent with a chronic right posterior cerebral artery infarct. Normal visualized paranasal sinuses. ASPECT score: CT/STROKE Brain/Head without Cont IMPRESSION: Large subacute right middle cerebral artery infarct. No acute intracranial hemorrhage. N.B. : The above information has been verbally conveyed by Toni Chavarria MD to Ilya Arroyo MD, on 01/17/2021 12:32:27 (ET). Electronically Signed: Toni Chavarria MD at 12:32 EDT Tel , Service support ,
--- NOTE | 2021-01-17 11:49 | EKG12_ITS ---
Test Reason : NEURO Blood Pressure : / mmHG Vent. Rate : 078 BPM Atrial Rate : 078 BPM P-R Int : 156 ms QRS Dur : 108 ms QT Int : 416 ms P-R-T Axes : 016 -46 054 degrees QTc Int : 474 ms Sinus rhythm with occasional Premature ventricular complexes Left axis deviation Anterior infarct , age undetermined Abnormal ECG Confirmed by ELIAZAR STEPHENS, MIKKI ([id number]), editorial intern TASHA FULLER ([id number]) on 01/22/2021 9:23:02 AM Referred By: STEPHEN/DAVID Confirmed By:MIKKI PEREA MD
--- NOTE | 2021-01-17 11:51 | CT_ITS ---
STUDY: CT CERVICAL SPINE WITHOUT CONTRAST REASON FOR EXAM: Male, 70 years old. fall, neck pain RADIATION DOSAGE (If Supplied By Facility): CTDIvol = ( 26.67 ) mGy, DLP = ( 647.76 ) mGycm TECHNIQUE: High resolution transaxial imaging was performed without contrast material. Sagittal and coronal images were reconstructed. Individualized dose optimization techniques were used for this CT. COMPARISON: None FINDINGS: Normal craniovertebral junction. Normal anterior atlantoaxial articulation. Normal odontoid process. Normal cervical lordosis. Normal vertebral bodies and posterior osseous elements. C2-3: Moderate right facet hypertrophy produces mild right neural foraminal stenosis. No central spinal stenosis. C3-4: Severe right facet hypertrophy and moderate left facet hypertrophy produces moderate by lateral neural foraminal stenosis. Mild broad disc osteophyte complex produces mild spinal stenosis. C4-5: Severe right facet hypertrophy with ankylosis of the facet joint and moderate right neural foraminal stenosis. Mild left facet hypertrophy with ankylosis of facet joint and mild left neural foraminal stenosis. Moderate broad disc osteophyte complex produces moderate spinal stenosis. C5-6: Severe right facet hypertrophy with ankylosis of facet joint and moderate right neural foraminal stenosis. Mild broad disc osteophyte complex produces mild spinal stenosis. C6-7: Moderate broad disc osteophyte complex and bilateral uncovertebral hypertrophy produces moderate spinal stenosis and moderate bilateral neural foraminal stenosis. C7-T1: Normal endplates. Normal disc height and morphology. Normal central canal and intervertebral neuroforamina. Normal visualized soft tissue structures. CT/Spine Cervical without Contras IMPRESSION: No acute fracture or subluxation. Electronically Signed: Toni Chavarria MD at 12:51 EDT Tel , Service support ,
--- NOTE | 2021-01-17 11:52 | ED.VIS.STROK ---
HPI History of Present Illness Chief Complaint: Neuro S/Sx Informant: EMS Onset/Context/Timing Onset: unknown Narrative Narrative: Patient brought in by EMS from home after a well check visit today. Last normal reported this past Tuesday, 7 days ago. Patient lives alone. Reported patient had a meeting at 7 AM that he missed therefore sister checked on him and called EMS. He was found on the ground next to his bed. Positive [place] with lip and left arm weakness. Reported history of hemorrhagic stroke in the past from records in October 2015. History of paroxysmal atrial fibrillation. Reports had a AICD placed unclear how recent. Discussed with the patient there is no clear story of how long patient has been down. He is not recall yesterday's events when discussed and asked. Blood glucose 165 per EMS. Records notes history of nonischemic cardiomyopathy paroxysmal A. fib AICD placement hemorrhagic stroke, hypertension hyperlipidemia. 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) Encounter for long-term current use of high risk medication Essential (primary) hypertension Family history of CVA Gallstone pancreatitis Hemorrhagic stroke (10/2015) Hyperlipidemia Implantable cardioverter-defibrillator (ICD) in situ Mural thrombus of heart Non-ischemic cardiomyopathy Obesity Paroxysmal atrial fibrillation Syncope Home Medications spironolactone 25 mg tablet 50 mg PO DAILY tab 07/02/19 [History Last Taken 10/16/20] lisinopril 20 mg tablet 20 mg PO BID #180 tab 02/15/20 [Rx Last Taken 10/16/20] cholecalciferol (vitamin D3) 1,000 unit PO DAILY 07/02/20 [History Last Taken Unknown] acetaminophen 1,000 mg PO Q8 #100 tab 07/18/20 [Rx Last Taken Unknown] carvedilol 12.5 mg tablet 12.5 mg PO BID #180 tab 11/24/20 [Rx Last Taken Unknown] Allergy/AdvReac Type Severity Reaction Status Date / Time amlodipine AdvReac Severe Swollen Verified 09/19/20 11:21 fingers atorvastatin [From Lipitor] AdvReac Severe Myalgias Verified 09/19/20 11:21 Family History Father CAD (coronary artery disease) Mother CVA (cerebral vascular accident) Other Family history of CVA Surgical History H/O knee surgery History of left heart catheterization (11/24/13) History of open reduction and internal fixation (ORIF) procedure (07/2020) History of total left knee replacement (07/2020) S/P laparoscopic cholecystectomy (09/2018) S/P tonsillectomy Social History Smoking Status: Never smoker alcohol intake: never substance use type: does not use caffeine: Yes Type: coffee what type of physical activity do you participate in: other frequency: 1-2 times per week duration: 15-30 minutes/day seatbelt use: always do you feel safe at home: Yes ROS ROS ED ROS Narrative Patient poor historian denying any symptoms, however is alert and oriented x3. Review of Systems ROS Unobtainable: other EXAM Physical Exam Const Vital Signs: 01/17/21 11:44 01/17/21 11:49 01/17/21 12:19 Temperature 97.8 F Temperature Source Temporal Pulse Rate 97 75 Respiratory Rate 18 14 Blood Pressure 112/66 144/99 H Blood Pressure Mean 81 114 Pulse Ox 98 100 Oxygen Delivery Method Room Air Room Air 01/17/21 12:52 01/17/21 13:00 01/17/21 13:30 Temperature Temperature Source Pulse Rate 68 80 70 Respiratory Rate 16 18 Blood Pressure 143/86 H 138/95 H 141/93 H Blood Pressure Mean 105 109 109 Pulse Ox 98 99 99 Oxygen Delivery Method Room Air Room Air 01/17/21 14:00 01/17/21 14:30 Temperature Temperature Source Pulse Rate 84 70 Respiratory Rate 14 12 Blood Pressure 139/95 H 134/93 H Blood Pressure Mean 109 106 Pulse Ox 97 96 Oxygen Delivery Method Room Air Positive well nourished and well developed General Appearance ED: well developed and NAD HEENT Reports moist mucous membranes normocephalic and atraumatic Eyes PERRL, EOMs intact bilaterally and conjunctivae normal General Eye ED: Yes normal appearance of both eyes Neck no lymphadenopathy and supple General: Negative for tenderness Chest Wall Chest: Negative for tenderness Resp normal respiratory effort and normal air movement Effort and Inspection: symmetric chest movement; Negative for respiratory distress Cardio regular rate, regular rhythm and no murmurs Cardio Narrative: Left upper chest wall AICD device Peripheral Pulses: pulses 2+ throughout GI normal to inspection, nondistended, normoactive bowel sounds and non-tender Palpation: Negative for guarding or rebound tenderness present Back/Spine no CVA tenderness and no thoracic nor lumbar tenderness Extremity normal to inspection General Extremety ED: Negative for edema or tenderness General Extremity: Negative for edema Neuro oriented x3 Neuro Narrative: Patient neglecting left side, NIH 16 for being off on the month stating it was October, he was off on recognizing 1 object stating the pen was a needle. Patient would not track left of midline, there is left lip drooping. Patient was flaccid in strength left arm and left leg, patient did not recognize palpation on left side compared to right side. Patient with dysarthria. Pain sensation was intact. Sensorium / Orientation: awake and alert Skin no rashes or lesions noted and no wounds STROKE Vital Signs/Narrative: Vital Signs Temp Pulse Resp BP Pulse Ox 01/17/21 14:30 70 12 134/93 H 96 01/17/21 14:00 84 14 139/95 H 97 01/17/21 13:30 70 18 141/93 H 99 01/17/21 13:00 80 16 138/95 H 99 01/17/21 12:52 68 143/86 H 98 01/17/21 12:19 75 14 144/99 H 100 01/17/21 11:44 97.8 F 97 18 112/66 98 MDM MDM MDM Narrative Medical decision making narrative: Patient seen immediately on arrival. NIH of 16, last normal was a week ago, edition patient cannot clearly indicate when his symptoms occurred. Therefore that be work-up initiated, he is not a TPA candidate due to timeline. Blood pressure 112/66 on arrival. Left side neglect. CT results discussed with radiologist large subacute right middle cerebral artery infarct no hemorrhage. 1255: I discussed with stroke neurologist at [facility] Dr. Mitchell, discussed patient's history unclear on time onset he reviewed the films with confirmed large area of infarct. He did recommend requiring neuro ICU for ICP management. He agrees infarct has already occurred no angiogram at this time. Patient will be transferred to [facility] ED under service Dr. Jeff Titus. Image studies will be sent. At this time white count did return at 18.8. INR 1.2. Sister bedside, updated agrees with plan at this time. 1400: Prior to transport arriving take patient to [facility], sister came out requesting a different facility that is closer. She reports he was at [facility] in 2015 for his hemorrhagic stroke. She requests going there. In addition we did find paperwork for DNR CC signed in 2013 prior to his hemorrhagic stroke. Sister made decision at that time [address] [facility] for management. She states surgery was not required at that time and she hopes to be a similar circumstance with the situation. Reports he really had minimal left-sided deficits from the hemorrhagic stroke and is independent. I did speak with [facility] transfer line and spoke with neuro ICU team with Dr. Coughlin, updated on patient's presentation and findings and family request. He is accepted to their facility for further management. Lab Data Labs: Laboratory Results - last 24 hr 01/17/21 01/17/21 01/17/21 12:30 12:30 12:30 WBC 18.8 H RBC 5.65 Hgb 16.1 Hct 48.9 MCV 86.5 MCH 28.5 MCHC 32.9 RDW Std Deviation 45.0 H RDW Coeff of June 14.3 Plt Count 165 MPV 11.4 Immature Gran % (Auto) 0.600 Neut % (Auto) 89.3 H Lymph % (Auto) 3.8 L [place] % (Auto) 6.1 Eos % (Auto) 0.0 Baso % (Auto) 0.2 Absolute Neuts (auto) 16.8 H Absolute Lymphs (auto) 0.72 L Nucleated RBC % 0 PT 14.4 INR 1.2 APTT 28.2 Sodium 136 Potassium 4.0 Chloride 103 Carbon Dioxide 25.0 Anion Gap 8 BUN 26 H Creatinine 1.46 H Estim Creat Clear Calc 50.20 Est GFR (MDRD) Af Amer 61 Est GFR (MDRD) Non-Af 50 L BUN/Creatinine Ratio 17.8 Glucose 146 H Calcium 9.3 Troponin I 0.017 Radiography Diagnostic Testing: Radiology Impression Brain CT 01/17/21 11:49 IMPRESSION: Large subacute right middle cerebral artery infarct. No acute intracranial hemorrhage. N.B. : The above information has been verbally conveyed by Toni Chavarria MD to Ilya Arroyo MD, on 01/17/2021 12:32:27 (ET). Electronically Signed: Toni Chavarria MD at 12:32 EDT Tel , Service support , ADDENDUM: 01/17/21 1239 IMPRESSION: Large subacute right middle cerebral artery infarct. No acute intracranial hemorrhage. N.B. : The above information has been verbally conveyed by Toni Chavarria MD to Ilya Arroyo MD, on 01/17/2021 12:32:27 (ET). Electronically Signed: Toni Chavarria MD at 12:32 EDT Tel , Service support , Cervical Spine CT 01/17/21 11:51 IMPRESSION: No acute fracture or subluxation. Electronically Signed: Toni Chavarria MD at 12:51 EDT Tel , Service support , Chest X-Ray 01/17/21 12:10 IMPRESSION: No active disease. Electronically Signed: Toni Chavarria MD at 12:43 EDT Tel , Service support , EKG Initial EKG: Attestation: I personally reviewed and interpreted this EKG as follows: Comments: Sinus rate of [address] or T wave changes. Left axis deviation. Stroke Documentation Questions Stroke Team Activated: No Was Patient considered for Endovascular Intervention?: No IV Alteplase (t-PA) Administered: No Critical Care Time Critical Care Time: Yes Critical care time (excluding procedures): 30-74 minutes, Discussing w/Patient &/or Family/Irrigation Pump Installer, Discussing w/Consultants and Arranging Admission or Transfer Discharge Plan Triage Chief Complaint: Neuro S/Sx ED Provider: Ilya Arroyo Dx/Rx/DC Orders Clinical Impression: Acute cerebrovascular accident (CVA) due to embolism of right middle cerebral artery Prescriptions: No Action spironolactone 25 mg tablet 50 mg PO DAILY RF: 0 cholecalciferol (vitamin D3) 1,000 UNIT tablet 1,000 unit PO DAILY RF: 0 acetaminophen 500 MG tablet 1,000 mg PO Q8 Qty: 100 RF: 0 lisinopril 20 mg tablet 20 mg PO BID Qty: 180 RF: 3 carvedilol 12.5 mg tablet 12.5 mg PO BID Qty: 180 RF: 4 Primary Care Provider: Tomás Verma Referrals: Tomás Verma MD [Primary Care Provider] - Disposition Disposition: Transfer to another type [facility]
--- NOTE | 2021-01-17 12:10 | RAD_ITS ---
STUDY: X-RAY CHEST REASON FOR EXAM: Male, 70 years old. Neuro deficit, acute, stroke suspected TECHNIQUE: Single AP portable view of the chest. COMPARISON: 10/16/2020 FINDINGS: Left subclavian single lead AICD which is unchanged. The lungs are clear and expanded. There is no demonstrated pleural abnormality. There is moderate cardiac enlargement. Normal mediastinum and dario. Normal visualized pulmonary arteries. Normal visualized aortic arch and descending thoracic aorta. Normal visualized thoracic spine. Normal visualized ribs, clavicles, and shoulders. There is no demonstrated abnormality of the visualized soft tissue structures of the upper abdomen. RAD/Chest 1 View IMPRESSION: No active disease. Electronically Signed: Toni Chavarria MD at 12:43 EDT Tel , Service support ,
[2021-01-17 12:48] LABS: Absolute Lymphocyte Count 0.72 X10^3/uL (0.83-4.51); Absolute Neutrophil Count 16.8 X10^3/uL (2.0-7.7); Basophil# 0.04 X10^3/uL; Basophil% 0.2 % (0-1); Hematocrit 48.9 % (40-54); Hemoglobin 16.1 g/dL (13.0-16.5); Lymphocyte # 0.72 X10^3/ul (0.83-4.51); Lymphocyte % 3.8 % (19-41); Mean Corp Hgb Conc 32.9 g/dL (32-36); Mean Corpuscular Hgb 28.5 pg (27.0-32.0); Mean Corpuscular Volume 86.5 fL (80-94); Mean Platelet Vol. 11.4 fl (6.2-12.0); Monocyte# 1.14 X10^3/uL; Monocyte% 6.1 % (0-10); NRBC Flagged by Analyzer 0 % (0-5); Neutrophil # 16.77 X10^3/uL (2.7-7.7); Neutrophil % 89.3 % (47-70); Platelet Count 165 K/mm3 (150-450); RBC Distribution Width CV 14.3 % (11.6-14.6); Red Blood Count 5.65 M/mm3 (4.6-6.2); White Blood Count 18.8 K/mm3 (4.4-11.0)
[2021-01-17 12:54] LABS: International Normalized Ratio 1.2; Prothrombin Time (Protime)PT. 14.4 SECONDS (11.7-14.9)
[2021-01-17 12:55] LABS: Partial Thromboplast Time 28.2 Seconds (24.1-36.2)
[2021-01-17 13:08] LABS: Anion Gap 8 (5-15); BUN 26 mg/dL (7-18); BUN/Creat Ratio 17.8 RATIO (10-20); Calcium,Total 9.3 mg/dL (8.5-10.1); Chloride 103 mmol/L (98-107); Creatinine, Serum 1.46 mg/dL (0.70-1.30); EST Glomerular Filtration Rate 50 mL/min (>60); Est Glom Filt Rate - Afr Amer 61 mL/min (>60); Glucose 146 mg/dL (74-106); Sodium Level 136 mmol/L (136-145)
--- NOTE | 2021-01-17 13:31 | ED.RN ---
pt family expressing that they would prefer to gp to a closer hospital. relayed this information to dr adams. dr adams will make calls. family aware and understand that this will delay treatment. squad canceled for this time.
[2021-01-20 16:09] LABS: Creatine Kinase MB 2 % (0-3); Creatine Kinase MM 98 % (97-100); Creatine Kinase,Total,Serum 1508 U/L (41-331); Macro I 0 % (Not Observed); Macro II 0 % (Not Observed)
[2021-01-20 17:35] LABS: Creatine Kinase BB 0 % (0)
== END 2021-01-17 16:55 | disposition other institution (70) ==
PROVIDERS: Emergency Provider Emergency Medicine; PCP Family Medicine
DX: I63.411 Cerebral infarction due to embolism of right middle cerebral artery (principal); E66.9 Obesity, unspecified; Z95.810 Presence of automatic (implantable) cardiac defibrillator; Z86.73 Personal history of transient ischemic attack (TIA), and cerebral infarction without residual deficits
CPT/HCPCS: 70450; 71045; 72125; 80048; 82550; 82552; 84484; 85025; 85610; 85730; 87426; 93005; 99285; A4216